=== PATIENT | male | born 1950 | race Caucasian/White ===

== ENCOUNTER 2019-05-09 10:50 | Outpatient (CLI) | payer MEDICARE, OTHER, SELFPAY ==
--- NOTE | ~2019-05-09 | XR_ITS ---
EXAMINATION: XR wrist LT w scaphoid DATE: 05/09/2019 11:17 INDICATION: Radial sided left wrist pain post fall several months prior TECHNIQUE: Posteroanterior, ulnar deviation, oblique, and lateral views of the left wrist were obtain ed. COMPARISON: none FINDINGS: Alignment is normal. No fracture. Mild osteoarthritis at the triscaphe, first carpometacarpal and fir st interphalangeal joints. Osteopenia. Soft tissues are unremarkable. IMPRESSION: 1. 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 2. Osteopenia. Reviewed, dictated and finalized at location A. 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 2. Osteopenia.
== END 2019-05-09 10:51 | disposition home or self-care (01) ==
LOC: ANHIMG 10:57
PROVIDERS: PCP Family Medicine; Visit Provider Family Medicine
DX: M25.532 Pain in left wrist (principal); M19.032 Primary osteoarthritis, left wrist; M85.88 Other specified disorders of bone density and structure, other site
CPT/HCPCS: 73110

== ENCOUNTER 2020-01-03 09:35 | Outpatient (CLI) | payer MEDICARE, SELFPAY ==
--- NOTE | ~2020-01-03 | US_ITS ---
EXAMINATION: US carotid duplex BI DATE: 01/03/2020 10:49 INDICATION: Right carotid bruit. TECHNIQUE: Grayscale, color Doppler, and pulsed Doppler images of the cervical carotid arteries were obtained. The degree of vessel stenosis is placed in one of the following categories: normal, <50%, 5 0-69%, >=70% but less than near-occlusion, near-occlusion, or total occlusion. Note that percent sten osis relative to normal distal artery lumen diameter is indirectly measured from velocity measurement s as described by Bjorn, et al. Radiology 2003; [id number]. COMPARISON: None. FINDINGS: RIGHT: The right common carotid artery (CCA) peak systolic velocity (PSV) is 116 cm/s. The right internal ca rotid artery (ICA) PSV is 96 cm/s. The right ICA end-diastolic velocity (EDV) is 9 cm/s. The right IC A/CCA PSV ratio is 0.8. Grayscale and color Doppler images yield an estimate of <50% diameter reducti on from plaque in the ICA. There is antegrade flow in the right vertebral artery. LEFT: The left CCA PSV is 124 cm/s. The left ICA PSV is 108 cm/s. The left ICA EDV is 26 cm/s. The left ICA /CCA PSV ratio is 0.9. Grayscale and color Doppler images yield an estimate of <50% diameter reductio n from plaque in the ICA. There is antegrade flow in the left vertebral artery. IMPRESSION: 1. <50% stenosis in the right internal carotid artery. 2. <50% stenosis in the left internal carotid artery. Reviewed, dictated and finalized at location A.
== END 2020-01-03 09:36 | disposition home or self-care (01) ==
LOC: ANHIMG 09:41
PROVIDERS: PCP Family Medicine; Visit Provider Physician Assistant
DX: R09.89 Other specified symptoms and signs involving the circulatory and respiratory systems (principal); I65.23 Occlusion and stenosis of bilateral carotid arteries
CPT/HCPCS: 93880

== ENCOUNTER 2020-02-15 07:05 | Outpatient (NON) | payer MEDICARE, SELFPAY ==
[2020-02-15 18:30] LABS: SARS-CoV-2 RNA PCR Negative
== END 2020-02-15 07:06 ==
LOC: ANHCOVIDDT 07:17
PROVIDERS: PCP Family Medicine; Visit Provider Physician Assistant
DX: R09.89 Other specified symptoms and signs involving the circulatory and respiratory systems (principal); Z20.828 Contact with and (suspected) exposure to other viral communicable diseases
CPT/HCPCS: 87635; C9803; U0003

== ENCOUNTER 2020-03-07 10:27 | Emergency (ER) | payer MEDICARE, SELFPAY ==
--- NOTE | ~2020-03-07 | XR_ITS ---
EXAMINATION: XR chest 2V EXAM DATE: 03/07/2020 11:15 INDICATION: non prod cough x 10 days. TECHNIQUE: Portable AP frontal chest x-ray was obtained. Comparison is made to prior examination from 10/21/2018. FINDINGS: Suspect scattered ill-defined mid and lower lung zone acute airspace disease. Could be COVI D pneumonia given community prevalence. Recommend testing. No confluent consolidation or pneumothorax . No pleural effusion. Cardiomediastinal silhouette is normal. There are no osseous abnormalities coy ntified. IMPRESSION: Suspect developing bilateral ill-defined acute airspace disease. Recommend testing for CO VID 19. Reviewed, dictated and finalized at location A. OR NATUROPATHIC IMPRESSION: Suspect developing bilateral ill-defined acute airspace disease. Re commend testing for COVID 19.
--- NOTE | 2020-03-07 10:31 | ED.URI ---
HPI - URI/Sore Throat General Chief Complaint: Upper Respiratory Infection Stated Complaint: cough/fever Time Seen by Provider: 03/07/20 10:40 Source: patient and RN notes reviewed Mode of arrival: ambulatory Limitations: no limitations History of Present Illness HPI Narrative: 69-year-old male presents with concern for cough, low-grade fever. Reports 3 members of his household tested positive for coronavirus on February 12, he tested negative. Reports the family members have been lax in their quarantining. Reports on February 25 he began having a cough, intermittent low-grade fever. Reports the cough has been worsening. Reports he takes [id number] cough and cold medicine with little relief. He reports nasal congestion, sinus pressure, poor appetite. He denies loss of sense of taste or smell, body aches, chills, sweats. MD elicited complaint: cough Related Data Home Medications Medication Instructions Recorded Confirmed gemfibrozil 600 mg PO BID 03/07/20 03/07/20 Allergies Allergy/AdvReac Type Severity Reaction Status Date / Time No Known Allergies Allergy Verified 12/21/19 09:35 Review of Systems Review of Systems: Narrative: CONSTITUTIONAL: Denies malaise, chills, sweats, or fever. EYES: Denies visual changes, redness, or discharge. ENT: Reports rhinorrhea, congestion. Denies sinus pain, otalgia and sore throat. CARDIOVASCULAR: Denies chest pain, palpitations, or edema. RESPIRATORY: Reports cough. Denies dyspnea. GASTROINTESTINAL: Denies abdominal pain, nausea, vomiting, diarrhea. Reports poor appetite SKIN: Denies rash or itching. MUSCULOSKELETAL: Denies myalgia. NEUROLOGIC: Denies headache. All systems reviewed & are unremarkable except as noted in HPI and below PMFSH Past Medical History Medical History CKD (chronic kidney disease) stage 3, GFR 30-59 ml/min Diabetes Diabetic peripheral neuropathy Hyperlipidemia Morbid obesity Streptococcal pneumonia w/ respiratory failure 10/2004 Surgical History Surgical History History of knee replacement 05/2014 History of tonsillectomy and adenoidectomy age 9 Family History Family History Father Acute myocardial infarction Mother Hypertension Family history of rheumatoid arthritis Sibling Hypertension Family history of rheumatoid arthritis Family history of malignant neoplasm Family history of kidney disease Other Family history of cardiovascular disease Social History Social History Smoking status: Never smoker Second hand tobacco smoke exposure: No Alcohol intake: never Substance use: never Substance use type: does not use Gender identity (if verbalized by the patient): Male Spiritual care concerns: Yes Agree to blood products: Yes Comments At time of signature, agree with nursing past medical, surgical, social and family history. There is no relevant family history pertinent to the presenting complaint Exam Narrative: Exam Narrative: GENERAL: Well-appearing, well-nourished, and in no acute distress. HEAD: Normocephalic EYES: PERRLA, conjunctivae clear ENT: Nares clear, turbinates erythematous, clear discharge. Mucous membranes moist. TM pearly diehl with dull light reflex bilaterally; no tragal tenderness. Oropharynx not erythematous without lesions. Tonsils not enlarged and without exudate, no drooling, no hoarseness, no trismus, uvula midline. NECK: Supple. No lymphadenopathy CHEST: Scattered rhonchi, decreased lower lobe breath sounds. No wheezing, rales, or stridor. No respiratory distress, speaks in full sentences. HEART: Regular rate and rhythm. No murmur heard. SKIN: Warm, dry, no rash. NEURO: Alert and oriented x3. PSYCH: Normal mood and affect Course Course Linda
[2020-03-07 10:37] VITALS: BP 146/73; PULSE 93; RESP 16; TEMP 36.3; O2SAT 97
== END 2020-03-07 11:44 | disposition home or self-care (01) ==
PROVIDERS: Emergency Provider Nurse Practitioner
DX: Z20.828 Contact with and (suspected) exposure to other viral communicable diseases (principal); J18.9 Pneumonia, unspecified organism; E78.5 Hyperlipidemia, unspecified; E66.01 Morbid (severe) obesity due to excess calories; Z68.42 Body mass index [BMI] 45.0-49.9, adult; E11.22 Type 2 diabetes mellitus with diabetic chronic kidney disease; E11.42 Type 2 diabetes mellitus with diabetic polyneuropathy; N18.30 Chronic kidney disease, stage 3 unspecified; Z96.659 Presence of unspecified artificial knee joint
CPT/HCPCS: 71046; 99213; G0463

== ENCOUNTER 2020-05-23 14:43 | Outpatient (CLI) | payer MEDICARE, SELFPAY | END 2020-05-23 14:44 | disposition home or self-care (01) | LOC: ANHCOVIDVC 14:43 | PROVIDERS: PCP Physician Assistant | DX: Z23 Encounter for immunization (principal) | CPT/HCPCS: 0001A; 91300 ==

== ENCOUNTER 2020-06-13 14:48 | Outpatient (CLI) | payer MEDICARE, SELFPAY | END 2020-06-13 14:49 | disposition home or self-care (01) | LOC: ANHCOVIDVC 14:48 | PROVIDERS: PCP Physician Assistant | DX: Z23 Encounter for immunization (principal) | CPT/HCPCS: 0002A; 91300 ==

== ENCOUNTER 2020-09-08 21:37 | Emergency (ER) | payer MEDICARE, SELFPAY ==
[2020-09-08 21:44] VITALS: BP 151/76; PULSE 82; RESP 20; O2SAT 99
--- NOTE | 2020-09-08 22:09 | ED.MALEGU ---
HPI - Male Genitourinary General Chief complaint: Urogenital-Male Stated complaint: hematuria Time Seen by Provider: 09/08/20 21:42 Source: patient Mode of arrival: ambulatory Limitations: no limitations History of Present Illness HPI Narrative: Patient 70 years old white male presents with hematuria, burning urination started 2 hours prior to arrival to the emergency room. Patient denies having similar symptoms, also denies taking any anticoagulant medications or antiplatelet medication. Patient denies any fever, chills, nausea, vomiting, abdominal pain. Related Data Home Medications Medication Instructions Recorded Confirmed gemfibrozil 600 mg PO BID 03/07/20 06/04/20 finasteride 5 mg PO DAILY 09/08/20 Allergies Allergy/AdvReac Type Severity Reaction Status Date / Time No Known Allergies Allergy Verified 09/08/20 21:51 Review of Systems Review of Systems: Narrative: CONSTITUTIONAL: Denies fever, chills, or sweats. EYES: Denies visual changes, redness, or discharge. ENT: Denies rhinorrhea, congestion, sore throat, or otalgia. CARDIOVASCULAR: Denies chest pain, palpitations, or edema. RESPIRATORY: Denies cough or dyspnea. GASTROINTESTINAL: Denies abdominal pain, nausea, vomiting, or diarrhea. GENITOURINARY: Denies dysuria or hematuria. SKIN: Denies rash or itching. MUSCULOSKELETAL: Denies back pain, joint pain, or myalgia. NEUROLOGIC: Denies headache, numbness, or weakness. PSYCHIATRIC: Denies anxiety or depression. [facility] Past Medical History Medical History CKD (chronic kidney disease) stage 3, GFR 30-59 ml/min Diabetes Diabetic peripheral neuropathy Hyperlipidemia Morbid obesity Streptococcal pneumonia w/ respiratory failure 10/2004 Surgical History Surgical History History of knee replacement 05/2014 History of tonsillectomy and adenoidectomy age 9 Family History Family History Father Acute myocardial infarction Mother Hypertension Family history of rheumatoid arthritis Sibling Hypertension Family history of rheumatoid arthritis Family history of malignant neoplasm Family history of kidney disease Other Family history of cardiovascular disease Social History Social History Smoking status: Never smoker Second hand tobacco smoke exposure: No Alcohol intake: never Substance use: never Substance use type: does not use Gender identity (if verbalized by the patient): Male Spiritual care concerns: Yes Agree to blood products: Yes Exam Narrative: Exam Narrative: General appearance: Well-developed, well-nourished Skin: Normal color Head: Normocephalic, nontraumatic Eyes: Clear conjunctiva Chest and respiratory: Airway patent, no respiratory distress, no accessory muscle use Heart: Regular rate/rhythm Abdomen: Soft, nontender, no organomegaly, quiet bowel sounds Vascular: Normal peripheral pulses, normal capillary refill. Musculoskeletal: Normal range of motion, nontender back Neurologic: Alert and oriented ?3, Course Course Emergency Course: Stable Vital Signs Vital signs: Vital Signs Pulse Rate 82 09/08/20 21:44 Respiratory Rate 09/08/20 21:44 Blood Pressure 151/76 H 09/08/20 21:44 Pulse Oximetry 99 09/08/20 21:44 Pulse Rate 82 09/08/20 21:44 Respiratory Rate 20 09/08/20 21:44 Blood Pressure 151/76 H 09/08/20 21:44 Pulse Oximetry 99 09/08/20 21:44 MDM - Male Genitourinary MDM Narrative Medical decision making narrative:
[2020-09-08 22:36] LABS: Basophils Percent Auto 0.6 % (0.2-1.2); Eosinophils Absolute Auto 0.1 K/mm3 (0-0.3); Eosinophils Percent Auto 1.4 % (0-4.4); Hematocrit 37.8 % (42.0-52.0); Hemoglobin 11.9 g/dL (14.0-18.0); Immature Granulocyte Absolute 0.05 K/mm3 (0.00-0.031); Immature Granulocyte Percent A 0.8 % (0-0.5); Lymphocytes Percent Auto 16.9 % (18.3-44.2); Mean Corpuscular HGB Conc 31.5 g/dl (32-36); Mean Corpuscular Hemoglobin 29.5 pg (26-34); Mean Corpuscular Volume 93.8 fl (80-100); Mean Platelet Volume 9.6 fl (7.4-10.4); Monocytes Absolute Auto 0.7 K/mm3 (0.1-0.6); Monocytes Percent Auto 10.9 % (2.6-8.5); Neutrophils Absolute Auto 4.5 K/mm3 (1.3-6.7); Neutrophils Percent Auto 69.4 % (45.5-73.1); Platelet Count Result 247 k/mm3 (150-375); Red Blood Count 4.03 M/mm3 (4.6-6.20); Red Cell Distribution Width 13.5 % (11.5-14.5); White Blood Count 6.5 K/mm3 (4.5-10.0)
[2020-09-08 22:50] LABS: Alanine Aminotransferase 19 U/L (4-50); Albumin Level 4.5 g/dL (3.5-5.1); Alkaline Phosphatase 67 U/L (38-126); Anion Gap 11 mmol/L (8-16); Aspartate Amino Transferase 26 U/L (17-59); Bilirubin,Total 0.4 mg/dL (0.2-1.3); Blood Urea Nitrogen 27 mg/dL (9-20); Carbon Dioxide 22 mmol/L (22-30); Chloride 108 mmol/L (98-107); Estimated CRCL calculation 80 ml/min; Estimated Glomerular Filt Rate > 60; Glucose 133 mg/dL (75-110); Potassium 4.4 mmol/L (3.4-5.0); Sodium 141 mmol/L (137-145)
[2020-09-08 22:57] LABS: Add Urine Microscopic? YES; Appearance Urine Cloudy (Clear); Bacteria Urine Trace /hpf; Bilirubin Urine Negative (Negative); Blood Urine 3+ (Negative); Color Urine Red (Yellow); Glucose Urine UA Negative (Negative); Ketones Urine Negative (Negative); Leukocyte Esterase Ur Negative LEU/UL (Negative); Mucus Urine Rare /lpf; Nitrate Urine Negative (Negative); Protein Urine 2+ mg/dL (Negative); RBC Urine >75 /hpf (0-2); Specific Grav Ur 1.008 (1.001-1.035); Urobilinogen Urine Negative mg/dL (<2.0); WBC Urine 21-30 /hpf
--- NOTE | 2020-09-08 23:23 | PC.NURSE ---
Pt presents to ED with complaints of hematuria that onset today at approx 1930. Pt denies all pain and discomfort and states he feels like he is expelling all urine from bladder and denies bloating, pressure and dysuria. Pt alert and oriented x4 and in no obvious distress with stable vitals. Pt in its lowest position with call button and personal items within reach. Pt advised to press call button for assistance. is present at bedside. All questions and concerns addressed.
[2020-09-08 23:26] VITALS: BP 146/64; PULSE 81; RESP 18; TEMP 36.6; O2SAT 99
--- NOTE | 2020-09-08 23:27 | PC.NURSE ---
EDMD present at bedside to update pt and on poc. All questions and concerns addressed.
[2020-09-08 23:42] VITALS: BP 146/64; PULSE 81; RESP 18; TEMP 36.6; O2SAT 99
[2020-09-08 23:44] VITALS: BP 146/64; PULSE 81; RESP 18; TEMP 36.6; O2SAT 99
== END 2020-09-08 23:45 | disposition home or self-care (01) ==
PROVIDERS: Emergency Provider Emergency Medicine; PCP Physician Assistant
DX: N39.0 Urinary tract infection, site not specified (principal); R31.9 Hematuria, unspecified; E11.22 Type 2 diabetes mellitus with diabetic chronic kidney disease; N18.30 Chronic kidney disease, stage 3 unspecified; Z79.84 Long term (current) use of oral hypoglycemic drugs; E11.42 Type 2 diabetes mellitus with diabetic polyneuropathy; E78.5 Hyperlipidemia, unspecified; E66.01 Morbid (severe) obesity due to excess calories; Z68.41 Body mass index [BMI] 40.0-44.9, adult; Z87.01 Personal history of pneumonia (recurrent); Z96.659 Presence of unspecified artificial knee joint
CPT/HCPCS: 36415; 80053; 81001; 85025; 87086; 87088; 99283

== ENCOUNTER 2020-09-10 12:30 | Outpatient (CLI) | payer MEDICARE, SELFPAY ==
--- NOTE | ~2020-09-10 | XR_ITS ---
EXAMINATION: XR abdomen/kub 1V EXAM DATE: 09/10/2020 12:53 INDICATION: Hematuria. TECHNIQUE: Frontal projection of the upper abdomen, frontal projection lower abdomen/pelvis for inter pretation. Comparison is made to prior examination from 2004. FINDINGS: There is expected amount of colonic stool and gas. No small bowel dilation, nonobstructiv e bowel gas pattern. There are no suspicious calcifications identified. Calcifications in the pelvi s are believed to be phleboliths. There is no organomegaly suspected. There are mild bony degenera tive changes. IMPRESSION: Unremarkable abdomen x-ray exam. Reviewed, dictated and finalized at location A.
== END 2020-09-10 12:31 | disposition home or self-care (01) ==
LOC: ANHIMG 12:36
PROVIDERS: PCP Physician Assistant; Visit Provider Nurse Practitioner Adult Health
DX: R31.0 Gross hematuria (principal)
CPT/HCPCS: 74018

== ENCOUNTER 2020-12-27 13:36 | Outpatient (CLI) | payer MEDICARE, SELFPAY ==
--- NOTE | ~2020-12-27 | XR_ITS ---
EXAMINATION: HAND-CHAYO ARTHRITIS 3+VIEWS DATE: 12/27/2020 13:56 INDICATION: Bilateral hand pain TECHNIQUE: Posteroanterior, lateral, and oblique views of the left and of the right hands as well as a ballcatchers view of both hands were obtained. COMPARISON: 05/09/2019 and 04/02/2018 FINDINGS: Alignment is normal at the bilateral hands. No fracture. Polyarticular osteoarthritis at the bilatera l hands and wrists characterized by nonuniform joint space narrowing and small marginal osteophytes. This is moderate to severe at the right third metacarpophalangeal joint, moderate severity at the lef t third metacarpophalangeal joint and multiple bilateral interphalangeal joints and mild at the bilat eral distal radioulnar, triscaphe, first carpometacarpal and remaining metacarpophalangeal and interp halangeal joints. No erosions to suggest inflammatory arthritis. Diffuse osteopenia. Soft tissues are unremarkable. IMPRESSION: 1. Generally moderate polyarticular osteoarthritis at the bilateral hands. Reviewed, dictated and finalized at location A.
== END 2020-12-27 13:37 | disposition home or self-care (01) ==
LOC: ANHIMG 13:38
PROVIDERS: PCP Family Medicine; Visit Provider Physician Assistant
DX: M79.643 Pain in unspecified hand (principal); M19.042 Primary osteoarthritis, left hand; M19.041 Primary osteoarthritis, right hand
CPT/HCPCS: 73130

== ENCOUNTER 2022-04-02 16:06 | Outpatient (CLI) | payer MEDICARE, SELFPAY ==
[2022-04-02 16:24] LABS: Basophils Percent Auto 0.6 % (0.2-1.2); Eosinophils Absolute Auto 0.1 K/mm3 (0-0.3); Eosinophils Percent Auto 2.3 % (0-4.4); Hematocrit 37.7 % (42.0-52.0); Hemoglobin 11.7 g/dL (14.0-18.0); Immature Granulocyte Absolute 0.02 K/mm3 (0.00-0.031); Immature Granulocyte Percent A 0.4 % (0-0.5); Lymphocytes Absolute Auto 1.09 K/mm3 (0.9-3.2); Lymphocytes Percent Auto 22.5 % (18.3-44.2); Mean Corpuscular Hemoglobin 30.9 pg (26-34); Mean Corpuscular Volume 99.5 fl (80-100); Mean Platelet Volume 9.9 fl (7.4-10.4); Monocytes Absolute Auto 0.6 K/mm3 (0.1-0.6); Monocytes Percent Auto 12.8 % (2.6-8.5); Neutrophils Percent Auto 61.4 % (45.5-73.1); Platelet Count Result 210 k/mm3 (150-375); Red Blood Count 3.79 M/mm3 (4.6-6.20); Red Cell Distribution Width 14.6 % (11.5-14.5); White Blood Count 4.9 K/mm3 (4.5-10.0)
[2022-04-02 16:38] LABS: D Dimer 0.41 ug/mL (<0.48)
[2022-04-02 16:40] LABS: Alanine Aminotransferase 20 U/L (6-50); Albumin Level 4.4 g/dL (3.5-5.1); Alkaline Phosphatase 75 U/L (38-126); Anion Gap 7 mmol/L (8-16); Aspartate Amino Transferase 25 U/L (17-59); Bilirubin,Total 0.5 mg/dL (0.2-1.3); Blood Urea Nitrogen 19 mg/dL (9-20); Calcium 9.2 mg/dL (8.4-10.2); Carbon Dioxide 25 mmol/L (22-30); Chloride 108 mmol/L (98-107); Estimated Glomerular Filt Rate > 60; Glucose 137 mg/dL (65-110); Potassium 4.1 mmol/L (3.4-5.0); Sodium 140 mmol/L (137-145)
[2022-04-02 16:52] LABS: NT Pro B Type Natriuretic Pept 162 pg/mL (19.9-100)
== END 2022-04-02 16:07 | disposition home or self-care (01) ==
LOC: ANHLAB 16:07
PROVIDERS: PCP Family Medicine; Visit Provider Physician Assistant
DX: R60.9 Edema, unspecified (principal); R06.02 Shortness of breath
CPT/HCPCS: 36415; 80053; 83880; 85025; 85380

== ENCOUNTER 2022-05-12 08:09 | Outpatient (CLI) | payer MEDICARE, SELFPAY ==
--- NOTE | ~2022-05-12 | XR_ITS ---
XR chest 2V 05/12/2022 08:35 Indication: Edema. Procedure: PA and lateral views of the chest Comparison: Comparison to multiple prior studies sequentially, with oldest reviewed study dated 04/28. Findings: Borderline heart size. Mild interstitial edema. No pleural effusion or pneumothorax. Pulmon denae arteries are enlarged centrally consistent with pulmonary arterial hypertension. Impression: 1: Mild interstitial edema. Reviewed, dictated and finalized at location D. PRINTER Impression: 1: Mild interstitial edema.
== END 2022-05-12 08:10 | disposition home or self-care (01) ==
PROVIDERS: PCP Family Medicine; Visit Provider Physician Assistant
DX: J81.1 Chronic pulmonary edema (principal)
CPT/HCPCS: 71046

== ENCOUNTER 2022-05-15 15:30 | Outpatient (CLI) | payer MEDICARE, SELFPAY ==
--- NOTE | 2022-05-15 15:48 | ECG_ITS ---
Measurements Intervals [place]ine Rate: 73 P: 60 ID: 164 QRS: -19 QRSD: 105 T: 72 QT: 389 QTc: 431 Interpretive Statements SINUS RHYTHM WITH SINUS ARRHYTHMIA DELAYED PRECORDIAL R/S TRANSITION BORDERLINE ST-T WAVE ABNORMALITY- HIGH LATERAL LEADS BORDERLINE ECG COMPARED TO ECG 10/21/2018 11:44:06 SINUS RHYTHM NOW PRESENT SINUS ARRHYTHMIA NOW PRESENT Electronically Signed On 05-15-2022 17:01:02 ANESTHESIA DIRECTOR by Zacarias Harvey D.O.
[2022-05-15 16:46] LABS: Anion Gap 5 mmol/L (8-16); Blood Urea Nitrogen 17 mg/dL (9-20); Calcium 9.4 mg/dL (8.4-10.2); Carbon Dioxide 31 mmol/L (22-30); Chloride 103 mmol/L (98-107); Estimated Glomerular Filt Rate > 60; Glucose 160 mg/dL (65-110); Sodium 139 mmol/L (137-145)
== END 2022-05-15 15:31 | disposition home or self-care (01) ==
PROVIDERS: PCP Family Medicine; Visit Provider Family Medicine
DX: Z51.81 Encounter for therapeutic drug level monitoring (principal); Z79.899 Other long term (current) drug therapy; R60.9 Edema, unspecified; R94.31 Abnormal electrocardiogram [ECG] [EKG]
CPT/HCPCS: 36415; 80048; 93005

== ENCOUNTER 2022-05-18 10:18 | Emergency (ER) | payer MEDICARE, SELFPAY ==
--- NOTE | ~2022-05-18 | US_ITS ---
EXAMINATION: US venous doppler [facility] DATE: 05/18/2022 12:45 INDICATION: Lower limb edema. TECHNIQUE: Grayscale ultrasound images without and with compression and Doppler ultrasound images of the bilateral lower extremity veins were obtained. COMPARISON: Ultrasound 06/18/2015 FINDINGS: The visualized portions of right common femoral vein, profunda (deep) femoral vein, femoral vein, pop liteal vein, peroneal veins, posterior tibial veins, and greater saphenous vein outflow are patent. The visualized portions of left common femoral vein, profunda femoral vein, femoral vein, popliteal v ein, peroneal veins, posterior tibial veins, and greater saphenous vein outflow are patent. IMPRESSION: 1. No deep venous thrombosis. Reviewed, dictated and finalized at location A. T RELATION OFFICER
[2022-05-18 11:09] VITALS: BP 152/67; PULSE 88; RESP 22; TEMP 36.6; O2SAT 99
[2022-05-18] MEDS: HYDROcodone/acetaminophen (*CRX) 5-325 MG TABLET 1 TAB PO (12:10)
--- NOTE | 2022-05-18 12:29 | ED.LOWEXIN ---
HPI - Extremity Injury (Lower) General Chief Complaint: Extremity Problem,Nontraumatic Stated Complaint: bilateral leg swelling Time Seen by Provider: 05/18/22 11:44 History of Present Illness HPI Narrative: Patient is a 72-year-old male who presents ER with bilateral lower extremity edema. Worsening over the last couple weeks. Was seen by PCP and started on antibiotics because he had redness to his shins. That improved. He is also started on Lasix 20 mg daily. That has not decreased his edema. No chest pain or chest pressure. Out patient D-dimer negative. He was scheduled for an ultrasound of his legs to rule out DVT however cannot be performed for another week so he came in for further evaluation. He has no exertional dyspnea or shortness of breath. Pain not controlled with [id number] Tylenol. Related Data Home Medications Medication Instructions Recorded Confirmed finasteride 5 mg tablet 5 mg PO DAILY 05/11/22 05/11/22 Allergies Allergy/AdvReac Type Severity Reaction Status Date / Time No Known Allergies Allergy Verified 05/11/22 15:49 Review of Systems Review of Systems: All systems reviewed & are unremarkable except as noted in HPI and below Constitutional: Constitutional: Denies chills, Denies fatigue and Denies fever(s) Cardiovascular: Cardiovascular: Denies chest pain, Denies rapid heart rate and Denies radiating jaw, neck or arm pain Respiratory: Respiratory: Denies cough, Denies dyspnea and Denies wheezing Gastrointestinal: Gastrointestinal: Denies abdominal pain, Denies nausea and Denies vomiting Musculoskeletal: Musculoskeletal: Denies arthralgias and Denies joint swelling Comments: Lower extremity edema bilaterally Integumentary/Breasts: Skin/Breast: Denies rash and Denies skin ulcer PMF Past Medical History Medical History CKD (chronic kidney disease) stage 3, GFR 30-59 ml/min Diabetes Diabetic peripheral neuropathy Encounter for immunization Hyperlipidemia Morbid obesity Streptococcal pneumonia w/ respiratory failure 10/2004 Surgical History Surgical History History of knee replacement 05/2014 History of tonsillectomy and adenoidectomy age 9 Family History Family History Father Acute myocardial infarction Mother Hypertension Family history of rheumatoid arthritis Sibling Hypertension Family history of rheumatoid arthritis Family history of malignant neoplasm Family history of kidney disease Other Family history of cardiovascular disease Social History Social History Social History: Retired, lives with . Smoking status: Never smoker Second hand tobacco smoke exposure: No Alcohol intake: never Substance use: never Substance use type: does not use Living arrangements: with family Occupation/Education: retired Gender identity (if verbalized by the patient): Male Spiritual care concerns: Yes Agree to blood products: Yes Exam Narrative: GENERAL: Well-appearing, well-nourished, and in no acute distress. HEAD: Normocephalic, atraumatic. ENT: Mucous membranes moist. CHEST: Clear to auscultation. No respiratory distress. HEART: Regular rate and rhythm. Normal peripheral pulses. ABDOMEN: Soft, nontender, nondistended. EXTREMITIES: Normal range of motion. 2+ edema. SKIN: Warm, dry, no rash. NEURO: Alert and oriented x3. PSYCH: Normal mood and affect. Course Course Emergency Course: Patient resting comfortably. Informed of results. No evidence of DVT. Recommend low-salt diet, compression stockings, leg elevation, and recommend increasing Lasix to twice a day. Recommend follow-up with PCP. Patient verbalized understanding treatment plan. Vital Signs Vital signs: Vital Signs
[2022-05-18 13:08] VITALS: BP 128/50; PULSE 70; RESP 12; O2SAT 98
== END 2022-05-18 13:45 | disposition home or self-care (01) ==
PROVIDERS: Emergency Provider Emergency Medicine; PCP Family Medicine
DX: R60.0 Localized edema (principal); E11.22 Type 2 diabetes mellitus with diabetic chronic kidney disease; E11.42 Type 2 diabetes mellitus with diabetic polyneuropathy; N18.30 Chronic kidney disease, stage 3 unspecified; E78.5 Hyperlipidemia, unspecified; E66.01 Morbid (severe) obesity due to excess calories; Z68.43 Body mass index [BMI] 50.0-59.9, adult; Z79.84 Long term (current) use of oral hypoglycemic drugs
CPT/HCPCS: 93970; 99284; A9270

== ENCOUNTER 2022-05-21 12:27 | Outpatient (CLI) | payer MEDICARE, SELFPAY ==
[2022-05-21 14:15] LABS: NT Pro B Type Natriuretic Pept 222 pg/mL (19.9-100)
== END 2022-05-21 12:28 | disposition home or self-care (01) ==
PROVIDERS: PCP Family Medicine; Visit Provider Physician Assistant Medical
DX: R60.9 Edema, unspecified (principal); E78.2 Mixed hyperlipidemia; R06.02 Shortness of breath
CPT/HCPCS: 36415; 83880

== ENCOUNTER 2022-05-28 09:33 | Outpatient (CLI) | payer MEDICARE, SELFPAY ==
--- NOTE | 2022-05-28 09:51 | ECHO_ITS ---
Patient Info Name: Sebastian Mendiola Age: 72 years : 1950 Gender: Male Ht: 70 in Wt: 340 lbs BSA: 2.84 m2 HR: 74 bpm BP: 137 / 70 mmHg Technical Quality: Fair Exam Date: 05/28/2022 9:57 AM Exam Location: [facility] Pulmonary Patient Status: Outpatient Admit Date: 05/28/2022 Staff Ordering Physician: Felicitas Young MD Government Services Professional: Prashant Gonzalez RDCS, RT Attending Provider: Felicitas Young MD Referring Physician: Hector SON; Exam Type: CA echo doppler color flow Study Info Indications R60.0 - Localized edema Complete two-dimensional, color flow and Doppler transthoracic echocardiogram is performed. Strain analysis performed. Summary 1. Complete two-dimensional, color flow and Doppler transthoracic echocardiogram is performed. 2. Left ventricular chamber dimension is normal. 3. Left ventricular systolic function is normal, estimated at 60-65%. 4. There is mild concentric increased left ventricular wall thickness. 5. The left ventricular diastolic function is abnormal. 6. E/e' 10 is mildly elevated. 7. Global longitudinal strain is abnormal at -14.4%. 8. Left atrial chamber dimension is mildly enlarged. 9. There is mild mitral valve regurgitation. 10. Dilated inferior vena cava with >50% collapse upon inspiration consistent with elevated right atrial pressure, 10 mmHg. Left Ventricle E/e' 10 is mildly elevated. Global longitudinal strain is abnormal at -14.4%. Left ventricular chamber dimension is normal. Left ventricular systolic function is normal, estimated at 60-65%. There is mild concentric increased left ventricular wall thickness. The left ventricular diastolic function is abnormal. Right Ventricle Right ventricular chamber dimension is normal. Right ventricular systolic function is normal. Left Atria Left atrial chamber dimension is mildly enlarged. Right Atria Right atrial chamber dimension is normal. Aortic Valve The aortic valve is trileaflet. There is no aortic valve stenosis. There is no aortic valve regurgitation. Pulmonic Valve There is no pulmonic regurgitation. Mitral Valve There is no mitral valve stenosis. There is mild mitral valve regurgitation. Tricuspid Valve There is no tricuspid valve regurgitation. Pericardium/Pleural There is no pericardial effusion. Inferior Vena Cava Dilated inferior vena cava with >50% collapse upon inspiration consistent with elevated right atrial pressure, 10 mmHg. Aorta The aortic root size at the sinus of Valsalva is normal. Left Ventricular Outflow Tract Name Value Normal LVOT 2D LVOT Diameter 2.1 cm LVOT Doppler LVOT Peak Gradient 8 mmHg LVOT Mean Gradient 4 mmHg LVOT VTI 31 cm LVOT VTI/AV VTI Ratio 0.9 LVOT Stroke Volume 106 ml LVOT CO 9.4 l/min LVOT CI 3.3 l/min/m2 Mitral Valve Name Va
== END 2022-05-28 09:34 | disposition home or self-care (01) ==
LOC: ANHCARD 09:33
PROVIDERS: PCP Family Medicine; Visit Provider Family Medicine
DX: R60.9 Edema, unspecified (principal)
CPT/HCPCS: 93306

== ENCOUNTER 2022-06-19 12:37 | Outpatient (CLI) | payer MEDICARE, SELFPAY ==
[2022-06-19 13:13] LABS: Hemoglobin 12.2 g/dL (14.0-18.0); Mean Corpuscular HGB Conc 31.3 g/dl (32-36); Mean Corpuscular Hemoglobin 31.1 pg (26-34); Mean Corpuscular Volume 99.5 fl (80-100); Mean Platelet Volume 9.7 fl (7.4-10.4); Platelet Count Result 220 k/mm3 (150-375); Red Blood Count 3.92 M/mm3 (4.6-6.20); Red Cell Distribution Width 14.2 % (11.5-14.5); White Blood Count 5.6 K/mm3 (4.5-10.0)
[2022-06-19 13:22] LABS: Hemoglobin A1C 7.1 % (<5.7)
[2022-06-19 13:26] LABS: Cholesterol 147 mg/dL (0-200); HDL Direct 48 mg/dL; Triglycerides 112 mg/dL (<150)
[2022-06-19 13:37] LABS: LDL Cholesterol Direct 59 mg/dL
[2022-06-19 13:41] LABS: Creatinine Urine 75.6 mg/dL
[2022-06-19 13:46] LABS: Microalbumin Urine Random 15.9 mg/L (0-16.7)
== END 2022-06-19 12:38 | disposition home or self-care (01) ==
PROVIDERS: PCP Family Medicine; Visit Provider Physician Assistant Medical
DX: R53.83 Other fatigue (principal); Z12.5 Encounter for screening for malignant neoplasm of prostate; E11.65 Type 2 diabetes mellitus with hyperglycemia; E78.2 Mixed hyperlipidemia
CPT/HCPCS: 36415; 80061; 82043; 83036; 84153; 85027; G0103

== ENCOUNTER 2022-08-28 09:23 | Outpatient (CLI) | payer MEDICARE, SELFPAY ==
--- NOTE | ~2022-08-28 | XR_ITS ---
EXAMINATION: XR ribs LT 2V w CXR 2V INDICATION: Left chest pain TECHNIQUE: PA and lateral views of the chest and 3 views of the left ribs were obtained. COMPARISON: 05/12/2022 FINDINGS: A mild diffuse interstitial pattern persists but has improved. The heart size is normal. No pleural effusion or pneumothorax. There is moderate thoracic spondylosis. No displaced rib fracture is identified. IMPRESSION: 1. Mild pulmonary edema. 2. No displaced rib fracture identified. Reviewed, dictated and finalized at location A.
== END 2022-08-28 09:24 | disposition home or self-care (01) ==
PROVIDERS: PCP Family Medicine; Visit Provider Physician Assistant
DX: S29.9XXA Unspecified injury of thorax, initial encounter (principal); X58.XXXA Exposure to other specified factors, initial encounter; J81.1 Chronic pulmonary edema
CPT/HCPCS: 71046; 71100

== ENCOUNTER 2022-10-29 00:54 | Day surgery (SDC) | payer MEDICARE, SELFPAY ==
[2022-10-14 15:02] VITALS: BMI 47.0
[2022-10-29 06:50] VITALS: BP 140/62; PULSE 64; RESP 18; TEMP 36.6; O2SAT 98; BMI 47.0
[2022-10-29] MEDS: LACTATED RINGERS 1,000 ML 150 ML IV CONT (07:19)
[2022-10-29 07:20] LABS: Glucose Point of Care 153 mg/dl (65-105)
--- NOTE | 2022-10-29 07:25 | PM.HPGS ---
History of Present Illness History of Present Illness Consent: Risks, benefits, and alternatives have been discussed and questions answered. Patient agrees to proceed with procedure. Chief complaint: neoplasm screening Narrative: Sebastian Mendiola is a 72 year old male Presents for screening colonoscopy. Patient's current weight appetite and bowel movements are normal. Patient denies abdominal pain. He has had no bleeding. Family history noncontributory. Previous colonoscopy some years ago revealed adenomatous colon polyp most recent colonoscopies have not. Most recent colonoscopy 2018 unremarkable. Review of Systems Review of Systems: Review of systems noncontributory. [facility] Past Medical History Medical History Diabetes Diabetic peripheral neuropathy Hyperlipidemia Morbid obesity CHARLIE (obstructive sleep apnea) Streptococcal pneumonia w/ respiratory failure 10/2004 Suspected COVID-19 virus infection Surgical History Surgical History History of knee replacement 05/2014 History of tonsillectomy and adenoidectomy age 9 Family History Family History Father Acute myocardial infarction Mother Hypertension Family history of rheumatoid arthritis Sibling Hypertension Family history of rheumatoid arthritis Family history of malignant neoplasm Family history of kidney disease Other Family history of cardiovascular disease Social History Social History Social History: Retired, lives with . Smoking status: Never smoker Second hand tobacco smoke exposure: No Alcohol intake: never Substance use: never Substance use type: does not use Lack of Transportation: No Lack of Food: Never True Current Housing: I Have Housing Concerned About Future Housing: No Difficulty Paying Gas/Electric Bills: No Difficulty Paying for Meds: No Currently Unemployed: No Education: High School Diploma/GED Difficulty w/ Childcare or Family Care: No Living arrangements: with family Occupation/Education: retired Gender identity (if verbalized by the patient): Male Sexual Orientation (if Verbalized by the Patient): Straight or Heterosexual Spiritual care concerns: No Agree to blood products: Yes Meds Home Medications and Allergies Home Medications Medication Instructions Recorded Confirmed Type tamsulosin 0.4 mg capsule 0.4 mg PO DAILY #90 caps 03/15/22 10/29/22 Rx atorvastatin 40 mg tablet See Rx Instructions .Route 04/17/22 10/29/22 Rx .COMPLEX #90 tabs finasteride 5 mg tablet 5 mg PO DAILY 05/11/22 10/29/22 History pioglitazone 45 mg tablet 45 mg PO DAILY #90 tabs 08/09/22 10/29/22 Rx benzonatate 100 mg capsule 100 mg PO TID #30 caps 08/28/22 10/29/22 Rx gemfibrozil 600 mg tablet 600 mg PO BID #180 tabs 10/07/22 10/29/22 Rx metformin 750 mg tablet,extended 2,250 mg PO QPM #270 tabs 10/26/22 10/29/22 Rx release 24 hr Allergies Allergy/AdvReac Type Severity Reaction Status Date / Time No Known Allergies Allergy Verified 10/29/22 07:00 Vital Signs Vital Signs - 24 hr 10/29/22 06:50 Temperature 97.8 F Pulse Rate 64 Respiratory Rate 18 Blood Pressure 140/62 Pulse Oximetry 98 Oxygen Delivery Room Air Exam Narrative: Physical exam reveals patient to be alert. Vital signs stable. HEENT exam is unremarkable. Patient is anicteric. Lungs are clear to auscultation and percussion. Heart is without murmur or extra sounds. Abdomen bowel sounds are present soft nontender with no organomegaly. Digital external rectal exam is normal. Assessment and Plan Assessment and plan (1) Encounter for screening colonoscopy: Code(s): Z12.11 - Encounter for screening for malignant neoplasm of colon
--- NOTE | 2022-10-29 07:31 | WPDANESEPPF ---
Anes - Initial Pre Proc Eval Procedure: Operation Date: 10/29/22 08:00 Proposed Procedures p Colonoscopy - Flash Joseph MD Date/Time: 10/29/22 07:31 Surgeon: Flash Joseph MD Pre Op Diagnosis: neoplasm screening Patient Data Age: 72 Gender: M Height: 1.78 m Weight: 148.8 kg Last Vital Signs Temp 97.8 F 10/29/22 06:50 Pulse 64 10/29/22 06:50 Resp 18 10/29/22 06:50 BP 140/62 10/29/22 06:50 Pulse Ox 98 10/29/22 06:50 O2 Del Method Room Air 10/29/22 06:50 Allergies Allergy/AdvReac Type Severity Reaction Status Date / Time No Known Allergies Allergy Verified 10/29/22 07:00 Home Medications Medication Instructions Recorded Confirmed Type tamsulosin 0.4 mg capsule 0.4 mg PO DAILY #90 caps 03/15/22 10/29/22 Rx atorvastatin 40 mg tablet See Rx Instructions .Route 04/17/22 10/29/22 Rx .COMPLEX #90 tabs finasteride 5 mg tablet 5 mg PO DAILY 05/11/22 10/29/22 History pioglitazone 45 mg tablet 45 mg PO DAILY #90 tabs 08/09/22 10/29/22 Rx benzonatate 100 mg capsule 100 mg PO TID #30 caps 08/28/22 10/29/22 Rx gemfibrozil 600 mg tablet 600 mg PO BID #180 tabs 10/07/22 10/29/22 Rx metformin 750 mg tablet,extended 2,250 mg PO QPM #270 tabs 10/26/22 10/29/22 Rx release 24 hr Laboratory Tests 10/29/22 07:16 POC Capillary Glucose 153 H mg/dl (65-105) Patient hx anesthesia problems: none Family hx anesthesia problems: none Results Review: All pre-operative results and documents have been reviewed as part of the pre-operative evaluation. [facility] Past Medical History Medical History Diabetes Diabetic peripheral neuropathy Hyperlipidemia Morbid obesity CHARLIE (obstructive sleep apnea) Streptococcal pneumonia w/ respiratory failure 10/2004 Suspected COVID-19 virus infection Surgical History Surgical History History of knee replacement 05/2014 History of tonsillectomy and adenoidectomy age 9 Family History Family History Father Acute myocardial infarction Mother Hypertension Family history of rheumatoid arthritis Sibling Hypertension Family history of rheumatoid arthritis Family history of malignant neoplasm Family history of kidney disease Other Family history of cardiovascular disease Social History Social History Social History: Retired, lives with . Smoking status: Never smoker Second hand tobacco smoke exposure: No Alcohol intake: never Substance use: never Substance use type: does not use Lack of Transportation: No Lack of Food: Never True Current Housing: I Have Housing Concerned About Future Housing: No Difficulty Paying Gas/Electric Bills: No Difficulty Paying for Meds: No Currently Unemployed: No Education: High School Diploma/GED Difficulty w/ Childcare or Family Care: No Living arrangements: with family Occupation/Education: retired Gender identity (if verbalized by the patient): Male Sexual Orientation (if Verbalized by the Patient): Straight or Heterosexual Spiritual care concerns: No Agree to blood products: Yes Anes - Eval Final PreProcedure Day of Procedure 10/29/22 07:31 Patient weight: morbidly obese Heart: regular rate and rhythm Lungs: clear to auscultation Airway: Mallampati scale class III Neurological: alert and oriented Last oral intake: >/= 8 hours ASA classification: III Emergent: no Anesthetic plan: proceed Anesthesia type and monitoring: general GIVS and standard monitoring Results Review: All pre-operative results and documents have been reviewed as part of the pre-operative evaluation. Informed Consent: The patient's anesthetic plan and its attendant risks and benefits were discussed with the patient/fami
[2022-10-29 08:15] VITALS: BP 114/58; PULSE 79; RESP 22; O2SAT 98
[2022-10-29 08:25] VITALS: BP 118/62; PULSE 71; RESP 24; O2SAT 98
[2022-10-29 08:35] VITALS: BP 124/62; PULSE 70; RESP 24; O2SAT 98
== END 2022-10-29 08:45 | disposition home or self-care (01) ==
PROVIDERS: PCP Family Medicine; Visit Provider Internal Medicine Gastroenterology
PROC: 0DJD8ZZ Inspection of Lower Intestinal Tract, Via Natural or Artificial Opening Endoscopic (ICD-10-PCS; CPT 45378; principal; 2022-10-29 08:00)
DX: Z12.11 Encounter for screening for malignant neoplasm of colon (principal); D12.5 Benign neoplasm of sigmoid colon; K64.8 Other hemorrhoids; E11.42 Type 2 diabetes mellitus with diabetic polyneuropathy; E78.5 Hyperlipidemia, unspecified; G47.33 Obstructive sleep apnea (adult) (pediatric); Z79.84 Long term (current) use of oral hypoglycemic drugs; E66.01 Morbid (severe) obesity due to excess calories; Z68.42 Body mass index [BMI] 45.0-49.9, adult
CPT/HCPCS: 45385; 82948; 88305; J2704; J7120

== ENCOUNTER 2023-05-27 10:16 | Outpatient (CLI) | payer MEDICARE, SELFPAY ==
--- NOTE | ~2023-05-27 | XR_ITS ---
Left foot Technique: AP, oblique, and lateral views were obtained. Clinical History: Plantar fasciitis Findings: No acute fracture or dislocation is seen. Osseous alignment is anatomic. Joint spaces are p reserved without erosive or degenerative change. Soft tissues are unremarkable. Impression: Unremarkable left foot radiographs. Reviewed, dictated and finalized at [facility]. Impression: Unremarkable left foot radiographs.
== END 2023-05-27 10:17 | disposition home or self-care (01) ==
LOC: ANHIMG 10:25
PROVIDERS: PCP Family Medicine; Visit Provider Podiatrist Foot & Ankle Surgery
DX: M72.2 Plantar fascial fibromatosis (principal)
CPT/HCPCS: 73630

== ENCOUNTER 2023-06-25 23:29 | Emergency (ER) | payer MEDICARE, SELFPAY ==
--- NOTE | ~2023-06-25 | CT_ITS ---
EXAMINATION: CT diagnostic chest wo con DATE: 06/26/2023 00:06 INDICATION: R anterolateral rib pain s/p fall TECHNIQUE: Computed tomography (CT) of the chest was performed without intravenous contrast. Addition al 3D reconstructions utilizing coronal maximum intensity projection (MIP) were performed. Automated exposure control and iterative reconstruction technique were employed. The dose-length product was 92 8.37 mGy-cm. COMPARISON: None FINDINGS: Small calcified pulmonary nodules consistent with old granulomatous disease in the right upper lobe a nd in the right middle lobe along a small linear band of discoid atelectasis/scarring. No other suspi cious pulmonary nodules, pneumonia, pulmonary edema or pleural effusion. Heart size is normal. Athero sclerotic coronary artery calcific lesion. No pericardial effusion. Additional calcified mediastinal lymph nodes along with multiple small splenic calcific lesions and a few scattered hepatic calcific l esions all consistent with old granulomatous disease. No pathologically enlarged thoracic lymphadenop athy. Moderate thoracic spondylosis. No rib fractures identified. IMPRESSION: 1. No rib fracture or acute cardiopulmonary disease. Reviewed, dictated and finalized at location A.
[2023-06-25 23:36] VITALS: BP 140/63; PULSE 77; RESP 18; TEMP 36.8; O2SAT 100
--- NOTE | 2023-06-25 23:43 | ED.FALL ---
HPI - Fall General Chief Complaint: Fall Stated Complaint: fall, right rib pain Time Seen by Provider: 06/25/23 23:34 Source: patient Mode of arrival: ambulatory Limitations: no limitations History of Present Illness HPI Narrative: This is a 73-year-old male with PMH of diabetes, neuropathy, HLD, CHARLIE who presents to the ED with chief complaint of a fall that occurred just prior to arrival. Patient reports that he was walking through his bar after he had just turned the lights off and was only using his truck headlights. States he tripped on a mat on the floor and fell down to his right side. Reports pain significantly to the right anterior ribs. Denies any further sites of pain or injury. Denies head injury or LOC. Denies numbness, weakness. Pain with inspiration but no significant dyspnea. Denies cough, abdominal pain, nausea, vomiting. Related Data Home Medications Medication Instructions Recorded Confirmed finasteride 5 mg tablet 5 mg PO DAILY 05/11/22 01/25/23 Allergies Allergy/AdvReac Type Severity Reaction Status Date / Time No Known Allergies Allergy Verified 06/25/23 23:42 Review of Systems Review of Systems: All systems as dictated in [facility] Past Medical History Medical History (Updated 06/26/23 @ 00:42 by Jluis Woodard PA-C) Diabetes Diabetic peripheral neuropathy Hyperlipidemia Morbid obesity CHARLIE (obstructive sleep apnea) Streptococcal pneumonia w/ respiratory failure 10/2004 Suspected COVID-19 virus infection Surgical History Surgical History History of knee replacement 05/2014- bilateral knee History of tonsillectomy and adenoidectomy age 9 Family History Family History Father Acute myocardial infarction Mother Hypertension Family history of rheumatoid arthritis Sibling Hypertension Family history of rheumatoid arthritis Family history of malignant neoplasm Family history of kidney disease Other Family history of cardiovascular disease Social History Social History (Updated 01/25/23 @ 09:48 by Sonia Lucas CMA) Social History: Retired, lives with . Smoking status: Never smoker Second hand tobacco smoke exposure: No Alcohol intake: never Substance use: never Substance use type: does not use Current Housing: Decline to Answer Concerned About Future Housing: Decline to Answer Difficulty Paying Gas/Electric Bills: Decline to Answer Difficulty Paying for Meds: Decline to Answer Currently Unemployed: Decline to Answer Education: Decline to Answer Difficulty w/ Childcare or Family Care: Decline to Answer Living arrangements: with family Occupation/Education: retired Gender identity (if verbalized by the patient): Male Sexual Orientation (if Verbalized by the Patient): Straight or Heterosexual Spiritual care concerns: No Agree to blood products: Yes Exam Narrative: GENERAL: Well-appearing, well-nourished, and in no acute distress. HEAD: Normocephalic, atraumatic. EYES: PERRLA and EOMI. ENT: Nares clear, no rhinorrhea or epistaxis. Mucous membranes moist. Oropharynx without tonsillar hypertrophy exudate or other lesions. NECK: Supple. No adenopathy or masses. CHEST: No respiratory distress. Clear to auscultation. No wheezes rales or rhonchi. Moderate chest wall tenderness to the right anterolateral ribs. No bruising. No crepitus. Breath sounds equal bilaterally HEART: Regular rate and rhythm. No murmur heard. Normal peripheral pulses. ABDOMEN: Soft, nontender, nondistended, normal active bowel sounds. MSK: Normal range of motion. No edema. SKIN: Warm, dry, no rash. NEURO: Alert and oriented x3. No focal deficits. PSYCH: Normal mood and affect. Course Vital Signs Vital signs: Vital Signs Temperature 98.2 F 06/25/23 23:36 Pulse Rate 77 06/25/23 23:36
[2023-06-25] MEDS: HYDROcodone/acetaminophen (*CRX) 7.5-325 MG TABLET 1 TAB PO (23:53)
--- NOTE | 2023-06-25 23:56 | PC.NURSE ---
Patient taken to CT via stretcher at this time.
[2023-06-26 00:45] VITALS: BP 117/60; PULSE 73; RESP 16; O2SAT 100
[2023-06-26 01:02] VITALS: BP 117/60; PULSE 66; RESP 16; TEMP 36.6; O2SAT 99
== END 2023-06-26 01:04 | disposition home or self-care (01) ==
PROVIDERS: Emergency Provider Physician Assistant; PCP Family Medicine
DX: S29.9XXA Unspecified injury of thorax, initial encounter (principal); E78.5 Hyperlipidemia, unspecified; G47.33 Obstructive sleep apnea (adult) (pediatric); E11.42 Type 2 diabetes mellitus with diabetic polyneuropathy; E66.01 Morbid (severe) obesity due to excess calories; Z68.42 Body mass index [BMI] 45.0-49.9, adult; Z96.653 Presence of artificial knee joint, bilateral; W01.0XXA Fall on same level from slipping, tripping and stumbling without subsequent striking against object, initial encounter; Z79.84 Long term (current) use of oral hypoglycemic drugs
CPT/HCPCS: 71250; 99284; A9270

== ENCOUNTER 2023-10-12 10:58 | Outpatient (CLI) | payer MEDICARE, SELFPAY | END 2023-10-12 10:59 | disposition home or self-care (01) | PROVIDERS: PCP Family Medicine; Visit Provider Otolaryngology | DX: H80.92 Unspecified otosclerosis, left ear (principal); H69.92 Unspecified Eustachian tube disorder, left ear; H93.12 Tinnitus, left ear; H90.3 Sensorineural hearing loss, bilateral | CPT/HCPCS: 92557; 92567 ==

== ENCOUNTER 2023-11-11 20:29 | Emergency (ER) | payer MEDICARE, SELFPAY ==
[2023-11-11 20:44] VITALS: BP 121/47; PULSE 77; RESP 15; TEMP 36.3; O2SAT 100
--- NOTE | 2023-11-11 20:55 | ED.UPPEXIN ---
HPI - Extremity Injury (Upper) General Chief Complaint: Extremity Injury, Upper Stated Complaint: left elbow injury Time Seen by Provider: 11/11/23 20:51 Source: patient, RN notes reviewed and old records reviewed Mode of arrival: ambulatory Limitations: no limitations History of Present Illness HPI narrative: Patient presents with complaints of left elbow pain. He reports that he was run into by a horse earlier, was knocked off balance, landed on the left elbow. Injury was approximately 8 hours ago. He took some Tylenol, initially had some relief, now that Tylenol has worn off he is again experiencing pain. He has limited range of motion secondary to pain. He denies other injury and trauma, including head trauma. Related Data Allergies Allergy/AdvReac Type Severity Reaction Status Date / Time No Known Allergies Allergy Verified 11/11/23 20:45 Review of Systems Review of Systems: All systems reviewed & are unremarkable except as noted in HPI and below Constitutional: Constitutional: Reports no additional constitutional complaints ENT: Reports system reviewed and no additional complaints, except as documented Cardiovascular: Cardiovascular: Reports no additional cardiovascular complaints Respiratory: Respiratory: Reports no additional respiratory complaints Gastrointestinal: Gastrointestinal: Reports no additional gastrointestinal complaints Musculoskeletal: Musculoskeletal: Reports arthralgias (Left elbow) PMFSH Past Medical History Medical History Diabetes Diabetic peripheral neuropathy Hyperlipidemia Morbid obesity CHARLIE (obstructive sleep apnea) Streptococcal pneumonia w/ respiratory failure 10/2004 Suspected COVID-19 virus infection Surgical History Surgical History History of knee replacement 05/2014- bilateral knee History of tonsillectomy and adenoidectomy age 9 Family History Family History Father Acute myocardial infarction Mother Hypertension Family history of rheumatoid arthritis Sibling Hypertension Family history of rheumatoid arthritis Family history of malignant neoplasm Family history of kidney disease Other Family history of cardiovascular disease Social History Social History Social History: Retired, lives with . Smoking status: Never smoker Second hand tobacco smoke exposure: No Alcohol intake: never Substance use: never Substance use type: does not use Current Housing: Decline to Answer Concerned About Future Housing: Decline to Answer Difficulty Paying Gas/Electric Bills: Decline to Answer Difficulty Paying for Meds: Decline to Answer Currently Unemployed: Decline to Answer Education: Decline to Answer Difficulty w/ Childcare or Family Care: Decline to Answer Living arrangements: with family Occupation/Education: retired Gender identity (if verbalized by the patient): Male Sexual Orientation (if Verbalized by the Patient): Straight or Heterosexual Spiritual care concerns: No Agree to blood products: Yes Exam Const: General: cooperative, no acute distress, alert and awake Orientation/consciousness: oriented to person, oriented to place and oriented to time HENMT: Head: normal to inspection Resp: Effort & Inspection: normal respiratory effort and able to speak in complete sentences Auscultation: clear to auscultation bilaterally, no crackles, no rales, no rhonchi and no wheezes Cardio: Palpation: normal PMI Rate: regular rate Rhythm: regular rhythm Heart sounds: S1 normal heart sound present and S2 normal heart sound present Neuro: General: oriented to person, oriented to place and oriented to time Cranial nerves: Yes CN's II-XII intact bilaterally Extrem: Left upper extremity: normal
== END 2023-11-11 21:06 | disposition short-term general hospital (02) ==
PROVIDERS: Emergency Provider Nurse Practitioner Family; PCP Family Medicine
DX: M25.522 Pain in left elbow (principal); E11.42 Type 2 diabetes mellitus with diabetic polyneuropathy; E78.5 Hyperlipidemia, unspecified; E66.01 Morbid (severe) obesity due to excess calories; Z96.653 Presence of artificial knee joint, bilateral
CPT/HCPCS: 99212; A4565; G0463

== ENCOUNTER 2023-11-11 21:30 | Emergency (ER) | payer MEDICARE, SELFPAY ==
--- NOTE | ~2023-11-11 | XR_ITS ---
EXAMINATION: XR elbow LT 2V DATE: 11/11/2023 22:03 INDICATION: Left elbow pain. Fall. TECHNIQUE: 2 views of left elbow were obtained. COMPARISON: Left elbow radiographs 10/17/2018 FINDINGS: Bone alignment is normal. No fracture. There is mild elbow joint osteoarthritis. There are enthesophytes at medial and lateral humeral epicondyles. There is a large elbow joint effusion. IMPRESSION: 1. Large elbow joint effusion. No fracture identified. 2. Mild elbow joint osteoarthritis. Reviewed, dictated and finalized at location A.
--- NOTE | ~2023-11-11 | CT_ITS ---
Noncontrast CT scan of the left elbow CLINICAL HISTORY: Status post fall TECHNIQUE: Axial noncontrast imaging of the elbow was performed. Sagittal and coronal reformatted tony ges were constructed. Dose reduction technique was used on this scan by utilizing automated exposure control and iterative reconstruction technique. The dose-length product (DLP) was 372.93 mGy-cm. Findings: Exam mildly degraded by motion artifact. Suspected nearly nondisplaced subtle fracture of t he volar aspect of the radial head. No dislocation seen. No other fracture seen. There is moderate el bow joint effusion. There is mild degenerative change of the elbow joint. IMPRESSION: Suspected nearly nondisplaced subtle fracture of the lateral aspect of the radial head. Elbow joint effusion. Mild degenerative change of the elbow joint. Reviewed, dictated and finalized at [facility]. IMPRESSION: Suspected nearly nondisplaced subtle fracture of the lateral aspect of the radi al head. Elbow joint effusion. Mild degenerative change of the elbow joint.
[2023-11-11 21:32] VITALS: BP 134/50; PULSE 94; RESP 18; TEMP 36.8; O2SAT 99
[2023-11-11 23:00] VITALS: BP 146/76; PULSE 90; RESP 18; TEMP 36.6; O2SAT 98
[2023-11-11] MEDS: HYDROcodone/acetaminophen (*CRX) 5-325 MG TABLET 1 TAB PO (23:27)
--- NOTE | 2023-11-12 01:06 | ED.GENADULT ---
HPI - General Adult General Chief complaint: Extremity Injury, Upper Stated complaint: kicked by horse in L elbow Time Seen by Provider: 11/11/23 22:25 History of Present Illness HPI narrative: Patient is a 73-year-old male who presents to the emergency department this evening after sustaining a left elbow injury. Patient states that he was out in the barn next to horse and baby horse send ago it and the 5 month baby horse knocked him off his feet and patient lying down his left elbow. Patient believes that the horse wanted more treats. Patient denies hitting his head and is currently denying any additional injuries other than the fact that he cannot move his left elbow. No additional symptoms or concerns at this time. Related Data Allergies Allergy/AdvReac Type Severity Reaction Status Date / Time No Known Allergies Allergy Verified 11/11/23 20:45 Review of Systems Review of Systems: All systems are reviewed and are negative unless stated otherwise in the HPI. PMF Past Medical History Medical History Diabetes Diabetic peripheral neuropathy Hyperlipidemia Morbid obesity CHARLIE (obstructive sleep apnea) Streptococcal pneumonia w/ respiratory failure 10/2004 Suspected COVID-19 virus infection Surgical History Surgical History History of knee replacement 05/2014- bilateral knee History of tonsillectomy and adenoidectomy age 9 Family History Family History Father Acute myocardial infarction Mother Hypertension Family history of rheumatoid arthritis Sibling Hypertension Family history of rheumatoid arthritis Family history of malignant neoplasm Family history of kidney disease Other Family history of cardiovascular disease Social History Social History Social History: Retired, lives with . Smoking status: Never smoker Second hand tobacco smoke exposure: No Alcohol intake: never Substance use: never Substance use type: does not use Current Housing: Decline to Answer Concerned About Future Housing: Decline to Answer Difficulty Paying Gas/Electric Bills: Decline to Answer Difficulty Paying for Meds: Decline to Answer Currently Unemployed: Decline to Answer Education: Decline to Answer Difficulty w/ Childcare or Family Care: Decline to Answer Living arrangements: with family Occupation/Education: retired Gender identity (if verbalized by the patient): Male Sexual Orientation (if Verbalized by the Patient): Straight or Heterosexual Spiritual care concerns: No Agree to blood products: Yes Exam Narrative: General: Alert, awake, afebrile, in no acute distress. HEENT: PERRL, no rhinorrhea, no post nasal drip, oropharynx clear. Cardiovascular: Regular rate and rhythm, no murmurs, rubs or gallops, no peripheral edema. Respiratory: Clear to auscultation bilaterally, no tachypnea, no wheezing, no rhonchi, no rubs, no respiratory distress. Abdomen: Soft, nontender, nondistended, no rebound, no guarding, no peritoneal signs. Musculoskeletal: Tenderness to palpation over the left elbow joint, no obvious swelling noted, patient has his left shoulder in a flexed position and is unable to extended and states that any rotation movements of his wrist elicits severe pain. Intact left radial and ulnar pulses, patient is neurovascularly intact. Skin: No rashes or petechia, no signs of infection. Neurological: Alert and oriented to person, place, and time. Follows all commands. No focal deficits, speech is clear and fluent. Course Vital Signs Vital signs: Vital Signs Temperature 98.2 F 11/11/23 21:32 Pulse Rate 94 11/11/23 21:32 Respiratory Rate 18 11/11/23 21:32 Blood Pressure 134/50 L 11/11/23 21:32 Pulse Oximetry 99
--- NOTE | 2023-11-12 01:08 | PC.NURSE ---
vrbrenda [id number] mg im x [address] fowler
[2023-11-12] MEDS: KETOROLAC 30 MG/ML VIAL (*BKC) 15 MG IM (01:12)
[2023-11-12 02:00] VITALS: BP 136/89; PULSE 90; RESP 18; TEMP 37.2; O2SAT 98
[2023-11-12 04:12] VITALS: BP 136/86; PULSE 77; RESP 13; TEMP 37.1; O2SAT 97
--- NOTE | 2023-11-12 04:26 | PC.NURSE ---
[facility]
[2023-11-12] MEDS: HYDROcodone/acetaminophen (*CRX) 5-325 MG TABLET 1 TAB PO (04:37)
== END 2023-11-12 04:40 | disposition home or self-care (01) ==
PROVIDERS: Emergency Provider Emergency Medicine; PCP Family Medicine
DX: S52.125A Nondisplaced fracture of head of left radius, initial encounter for closed fracture (principal); E11.42 Type 2 diabetes mellitus with diabetic polyneuropathy; E78.5 Hyperlipidemia, unspecified; E66.01 Morbid (severe) obesity due to excess calories; Z68.42 Body mass index [BMI] 45.0-49.9, adult; G47.33 Obstructive sleep apnea (adult) (pediatric); M19.022 Primary osteoarthritis, left elbow; W55.12XA Struck by horse, initial encounter
CPT/HCPCS: 29105; 73070; 73200; 96372; 99284; A4565; A9270; J1885

== ENCOUNTER 2024-11-21 00:29 | Day surgery (SDC) | payer MEDICARE, SELFPAY ==
[2024-11-14 12:39] VITALS: BMI 40.3
--- OUTSIDE RECORDS SUMMARY | 2024-11-21 00:31 | XMS_ITS | Clinical Summary ---
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
[2024-11-21 11:49] VITALS: BP 119/61; PULSE 63; RESP 20; TEMP 36.3; O2SAT 99
--- NOTE | 2024-11-21 12:05 | WPDANESEPPF ---
Anes - Initial Pre Proc Eval Procedure: Operation Date: 11/21/24 13:15 Proposed Procedures p Esophagogastroduodenoscopy EGD - Mckinley Terry MD Date/Time: 11/21/24 12:05 Surgeon: Mckinley Terry MD Pre Op Diagnosis: Dysphagia, unspecified Patient Data Age: 74 Gender: M Height: 1.78 m Weight: 126.4 kg Last Vital Signs Temp 36.3 C L 11/21/24 11:49 Pulse 63 11/21/24 11:49 Resp 20 11/21/24 11:49 BP 119/61 11/21/24 11:49 Pulse Ox 99 11/21/24 11:49 O2 Del Method Room Air 11/21/24 11:49 Allergies Allergy/AdvReac Type Severity Reaction Status Date / Time No Known Allergies Allergy Verified 11/21/24 11:46 Home Medications ?Medication ?Instructions ?Recorded ?Confirmed ?Type gemfibrozil 600 mg tablet 600 mg PO BID #180 tabs 07/14/23 11/21/24 Rx atorvastatin 40 mg tablet See Rx Instructions .Route 12/31/23 11/21/24 Rx .COMPLEX #90 tabs lorazepam 1 mg tablet 1 mg PO DAILY PRN anxiety #5 tabs 07/06/24 11/14/24 Rx furosemide 20 mg tablet 20 mg PO QAM #180 tabs 07/17/24 11/21/24 Rx gabapentin 100 mg capsule 100 mg PO TID #90 caps 08/03/24 11/21/24 Rx solifenacin 10 mg tablet (Vesicare) 10 mg PO DAILY #30 tabs 08/03/24 11/21/24 Rx pioglitazone 45 mg tablet 45 mg PO DAILY #90 tabs 08/14/24 11/21/24 Rx tamsulosin 0.4 mg capsule 0.4 mg PO DAILY #90 caps 09/18/24 11/21/24 Rx metformin 500 mg tablet,extended 1,000 mg (2 x 500 mg) PO BID #120 10/02/24 11/21/24 Rx release 24 hr tabs cyanocobalamin (vitamin B-12) 1,000 mcg PO DAILY #30 caps 10/03/24 11/21/24 Rx 1,000 mcg capsule finasteride 5 mg tablet 5 mg PO DAILY #90 tabs 10/04/24 11/21/24 Rx Patient hx anesthesia problems: none Family hx anesthesia problems: none Results Review: All pre-operative results and documents have been reviewed as part of the pre-operative evaluation. [facility] Past Medical History Medical History Adenomatous colon polyp Early satiety Anemia Dysphagia Weight loss Arthritis Frequent urination Shortness of breath CHARLIE (obstructive sleep apnea) Suspected COVID-19 virus infection Diabetes Morbid obesity Hyperlipidemia Diabetic peripheral neuropathy Streptococcal pneumonia w/ respiratory failure 10/2004 Surgical History Surgical History History of tonsillectomy and adenoidectomy age 9 History of knee replacement 05/2014- bilateral knee Family History Family History Father Acute myocardial infarction Mother Hypertension Family history of rheumatoid arthritis Sibling Hypertension Family history of rheumatoid arthritis Family history of malignant neoplasm Family history of kidney disease Unknown Diabetes mellitus Heart disease Hypertension Family history of kidney disease Other Family history of cardiovascular disease Social History Social History Social History: Retired, lives with . Smoking status: Never smoker Second hand tobacco smoke exposure: No Alcohol intake: never Substance use: never Substance use type: does not use Do You Feel Safe in your Home?: Yes Lack of Transportation: No Lack of Food: Never True Current Housing: I Have Housing Concerned About Future Housing: No Difficulty Paying Gas/Electric Bills: No Difficulty Paying for Meds: No Currently Unemployed: No Education: High School Diploma/GED Difficulty w/ Childcare or Family Care: No Living arrangements: with family Occupation/Education: retired Gender identity (if verbalized by the patient): Male Sexual Orientation (if Verbalized by the Patient): Straight or Heterosexual Spiritual care concerns: No Agree to blood products: Yes Anes - Eval Final PreProcedure Day of Procedure 11/21/24 12:05 Patient weight: morbidly obese Heart: regular rate and rhythm Lungs: clear to auscultation Airway: Mallampati scale class II Neurological: alert and oriented Last oral intake: >/= 8 hours ASA classification: III Emergent: no Anesthetic plan: proceed Anesthesia type and monitoring: general GIVS and standard monitoring Results Review: All pre-operative results and documents have been reviewed as part of the pre-operative evaluation. Informed Consent: The patient's anesthetic plan and its attendant risks and benefits were discussed with the patient/family/POA. Questions were solicited and answers provided to the satisfaction of the patient/family/POA.
[2024-11-21] MEDS: LACTATED RINGERS 1,000 ML 150 ML IV CONT (12:06)
[2024-11-21] MEDS: SIMETHICONE ORAL SUSPENSION 20 MG/0.3 ML 30 ML BOTTLE 1.8 ML PO (12:06)
--- NOTE | 2024-11-21 13:27 | PM.IMHP ---
H&P: HPI History of Present Illness Date/Time: 11/21/24 13:27 Chief Complaint: Severe weight loss -early satiety Narrative: the patient is referred for EGD, for the investigation of a severe weight loss, associated with early satiety. He endorses some occasional difficulty swallowing but no nausea, vomiting, hematemesis, melena or hematochezia. Review of Systems Review of Systems: All systems reviewed & are unremarkable except as noted in HPI and below PMFSH Past Medical History Medical History Adenomatous colon polyp Early satiety Anemia Dysphagia Weight loss Arthritis Frequent urination Shortness of breath CHARLIE (obstructive sleep apnea) Suspected COVID-19 virus infection Diabetes Morbid obesity Hyperlipidemia Diabetic peripheral neuropathy Streptococcal pneumonia w/ respiratory failure 10/2004 Surgical History Surgical History History of tonsillectomy and adenoidectomy age 9 History of knee replacement 05/2014- bilateral knee Family History Family History Father Acute myocardial infarction Mother Hypertension Family history of rheumatoid arthritis Sibling Hypertension Family history of rheumatoid arthritis Family history of malignant neoplasm Family history of kidney disease Unknown Diabetes mellitus Heart disease Hypertension Family history of kidney disease Other Family history of cardiovascular disease Social History Social History Social History: Retired, lives with . Smoking status: Never smoker Second hand tobacco smoke exposure: No Alcohol intake: never Substance use: never Substance use type: does not use Do You Feel Safe in your Home?: Yes Lack of Transportation: No Lack of Food: Never True Current Housing: I Have Housing Concerned About Future Housing: No Difficulty Paying Gas/Electric Bills: No Difficulty Paying for Meds: No Currently Unemployed: No Education: High School Diploma/GED Difficulty w/ Childcare or Family Care: No Living arrangements: with family Occupation/Education: retired Gender identity (if verbalized by the patient): Male Sexual Orientation (if Verbalized by the Patient): Straight or Heterosexual Spiritual care concerns: No Agree to blood products: Yes Meds Home Medications and Allergies Home Medications ?Medication ?Instructions ?Recorded ?Confirmed ?Type gemfibrozil 600 mg tablet 600 mg PO BID #180 tabs 07/14/23 11/21/24 Rx atorvastatin 40 mg tablet See Rx Instructions .Route 12/31/23 11/21/24 Rx .COMPLEX #90 tabs lorazepam 1 mg tablet 1 mg PO DAILY PRN anxiety #5 tabs 07/06/24 11/14/24 Rx furosemide 20 mg tablet 20 mg PO QAM #180 tabs 07/17/24 11/21/24 Rx gabapentin 100 mg capsule 100 mg PO TID #90 caps 08/03/24 11/21/24 Rx solifenacin 10 mg tablet (Vesicare) 10 mg PO DAILY #30 tabs 08/03/24 11/21/24 Rx pioglitazone 45 mg tablet 45 mg PO DAILY #90 tabs 08/14/24 11/21/24 Rx tamsulosin 0.4 mg capsule 0.4 mg PO DAILY #90 caps 09/18/24 11/21/24 Rx metformin 500 mg tablet,extended 1,000 mg (2 x 500 mg) PO BID #120 10/02/24 11/21/24 Rx release 24 hr tabs cyanocobalamin (vitamin B-12) 1,000 mcg PO DAILY #30 caps 10/03/24 11/21/24 Rx 1,000 mcg capsule finasteride 5 mg tablet 5 mg PO DAILY #90 tabs 10/04/24 11/21/24 Rx Allergies Allergy/AdvReac Type Severity Reaction Status Date / Time No Known Allergies Allergy Verified 11/21/24 11:46 Vital Signs Vital Signs - 24 hr 11/21/24 11:49 Temperature 97.3 F L Pulse Rate 63 Respiratory Rate 20 Blood Pressure 119/61 Pulse Oximetry 99 Oxygen Delivery Room Air Exam Const: General: cooperative and healthy appearing Resp: Effort & Inspection: normal respiratory effort and able to speak in complete sentences Auscultation: clear to auscultation bilaterally Cardio: Rate: regular rate Rhythm: regular rhythm GI: Inspection: normal to inspection GI Palp: No No hepatosplenomegaly present Auscultation: normal bowel sounds Rectal Exam: deferred Skin: General skin exam: normal color Psych: Appearance: grossly normal Mental Status: mental status grossly normal Assessment and Plan Assessment and plan (1) Weight loss: Code(s): R63.4 - Abnormal weight loss Status: Acute Assessment and Plan: The patient is deemed a good candidate for the procedure. Consent signed. Will proceed.
[2024-11-21 13:47] VITALS: BP 112/53; PULSE 73; RESP 26; O2SAT 98
[2024-11-21 13:57] VITALS: BP 130/59; PULSE 71; RESP 20; O2SAT 99
[2024-11-21 14:07] VITALS: BP 130/62; PULSE 77; RESP 18; O2SAT 99
== END 2024-11-21 14:11 | disposition home or self-care (01) ==
PROVIDERS: PCP Family Medicine; Visit Provider Internal Medicine Gastroenterology
PROC: 0DJ08ZZ Inspection of Upper Intestinal Tract, Via Natural or Artificial Opening Endoscopic (ICD-10-PCS; CPT 43235; principal; 2024-11-21 13:15)
DX: K29.30 Chronic superficial gastritis without bleeding (principal); E78.5 Hyperlipidemia, unspecified; E11.42 Type 2 diabetes mellitus with diabetic polyneuropathy; D64.9 Anemia, unspecified; R35.0 Frequency of micturition; G47.33 Obstructive sleep apnea (adult) (pediatric); M19.90 Unspecified osteoarthritis, unspecified site; E66.01 Morbid (severe) obesity due to excess calories; Z68.41 Body mass index [BMI] 40.0-44.9, adult; Z79.84 Long term (current) use of oral hypoglycemic drugs; Z98.890 Other specified postprocedural states; Z86.0100 Personal history of colon polyps, unspecified; Z80.9 Family history of malignant neoplasm, unspecified; Z82.49 Family history of ischemic heart disease and other diseases of the circulatory system
CPT/HCPCS: 43235; 82948; J2003; J2704; J7120

== ENCOUNTER 2024-11-25 18:14 | Inpatient (IN) | payer MEDICARE, SELFPAY ==
[2024-11-25] VITALS (12 sets, daily range): BP systolic 117–137; BP diastolic 46–75; PULSE 72–104; RESP 9–31; TEMP 36.8; O2SAT 84–100
--- NOTE | ~2024-11-25 | CT_ITS ---
Sebastian Mendiola EXAMINATION: CT abdomen pelvis w con COMPARISON: None HISTORY: L [place] and and flank pain, uti TECHNIQUE: Axial images were obtained through the abdomen, pelvis post administration of IV contrast. Oral contrast was also administered. Coronal reconstruction images were obtained from the axial views. CT scan performed using dose optimization techniques including the following automated exposure control; adjustment of mA and/or kV; use of iterative reconstruction technique. Automatic exposure control was used to reduce radiation dose. Permanent radiation dose record is archived to PACS. FINDINGS: CT abdomen: LUNG BASES: The lung bases are clear. The visualized portions of the heart and pericardium are unremarkable. LIVER: Calcified liver granulomas. Moderate hepatic steatosis. The liver is enlarged. Portal vein patent. No intrahepatic biliary duct dilatation. SPLEEN: Calcified splenic granulomas.. KIDNEYS: Right Kidney: Unremarkable. No calculi. No hydronephrosis. Left Kidney: Unremarkable. No calculi. No hydronephrosis ADRENAL GLANDS: Unremarkable. PANCREAS: Unremarkable. GALLBLADDER/BILIARY: Minimal cholelithiasis. STOMACH AND ESOPHAGUS: Visualized stomach and esophagus within normal limits. BOWEL/MESENTERY: Moderate fecal content, no colitis or diverticulitis. Appendix not identified. Nonspecific ill-defined stranding within the mesentery. No dilated small bowel loops. 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 FREE FLUID OR FREE AIR: No free fluid.. CT pelvis: SOLID ORGANS/REPRODUCTIVE: Prostate prominent correlate with PSA. BLADDER: There is thickening of the bladder wall perivesicular stranding. OSSEOUS STRUCTURES: No acute osseous abnormality.No suspicious lesions. OVERLYING SOFT TISSUES: Mild soft tissue anasarca. Bilateral small fat- containing inguinal hernia. IMPRESSION: 1. Probable cystitis. Reviewed, dictated and finalized at location A. IMPRESSION: 1. Probable cystitis.
--- NOTE | ~2024-11-25 | US_ITS ---
EXAMINATION: US renal BI, 11/26/2024 16:21 CDT HISTORY: J CARLOS Comparison: None Technique: Swann-scale and color Doppler images were obtained. Findings: KIDNEYS: The renal cortices are intact with no hydronephrosis. Right Kidney: Right kidney 13.4 x 7 x 6.4 cm, normal. Left Kidney: Left kidney midpole probable noncalcified calculus 6 x 7 mm. Left kidney 12.5 x 5.7 x 7.2 cm, no masses or hydronephrosis. Bladder: The bladder is unremarkable. . Impression: 1. Left renal calculus. No hydronephrosis Reviewed, dictated and finalized at location A. Impression: 1. Left renal calculus. No hydronephrosis
--- NOTE | ~2024-11-25 | XR_ITS ---
EXAMINATION: XR chest 1V portable COMPARISON: No comparisons available. HISTORY: SOB FINDINGS: Mild pulmonary venous congestion. No pneumothorax. Mild cardiomegaly. Mediastinal and hilar contours are within normal limits. Bony thorax no acute abnormality. Miscellaneous: None Impression: Mild CHF Reviewed, dictated and finalized at location A. Impression: Mild CHF
--- OUTSIDE RECORDS SUMMARY | 2024-11-25 18:16 | XMS_ITS | Clinical Summary ---
Author Organization [facility] Address [address] [place] [id number] Phone Care Team Providers Care Inker Machine Name Role Phone Unavailable Primary Care Provider Unavailabl e Medications atorvastatin (LIPITOR) 40 MG tablet 1 daily 04/20/2015 Active tamsulosin (FLOMAX) 0.4 MG 24 hr capsule 1 dakly 04/20/2015 Activ e pioglitazone (ACTOS) 45 MG tablet 1 daily 04/20/2015 Active ezetimibe (ZETIA) 10 MG tablet 1 daily 04/20/2015 Active metFORMIN XR (GLUCOPHATE-XR) 500 MG 24 hr tablet 4 qevening 04/20/2015 Active hydrOXYzine (ATARAX) 25 MG tablet prn 04/20/2015 Active gemfibrozil (LOPID) 600 MG tablet 1 bid 04/20/2015 Active traMADol (ULTRAM) 50 MG tablet 1 prn 04/20/2015 Active Active Problems Problem Noted Date Diagnosed Date Type 2 diabetes mellitus without complication Acute kidney failure 04/22/2015 Other hyperlipidemia 04/22/2015 Overview (05/28/2018): Converted unresolved ICD9, potential mismatch. Family History Medical History Relation Comments Coronary arteriosclerosis Father Kidney disease Sibling Kidney stone Neg Hx Relation Status Comments Father Sibling Social History Tobacco Use Types Packs/Day Years Used Date Smoking Tobacco: Never Assessed Sex and Gender Information Value Date Recorded Sex Assigned at Not on file Legal Sex Male 8:51 AM MST Gender Identity Not on file Sexual Orientation Not on file Last Filed Vital Signs Vital Sign Reading Time Taken Comments Blood Pressure 118/60 04/22/2015 12:01 AM [employer] Pulse 72 04/22/2015 12:01 AM [employer] Temperature 36.9 C (98.5 F) 04/22/2015 12:01 AM [employer] Respiratory Rate - - Oxygen Saturation - - Inhaled Oxygen Concentration - - Weight 148 kg (326 lb) 04/22/2015 12:01 AM [employer] Height 177.8 cm (5' 10) 04/22/2015 12:01 AM [employer] Body Mass Index 46.78 04/22/2015 12:01 AM [employer]OGRAPH [employer] Plan of Treatment Not on file
[2024-11-25 20:57] LABS: Hematocrit 35.4 % (42.0-52.0); Hemoglobin 11.3 g/dL (14.0-18.0); Immature Granulocyte Percent A 0.8 % (0-0.5); Lymphocytes Absolute Auto 0.65 K/mm3 (0.9-3.2); Mean Corpuscular HGB Conc 31.9 g/dl (32-36); Mean Corpuscular Hemoglobin 30.4 pg (26-34); Mean Corpuscular Volume 95.2 fl (80-100); Nucleated Red Blood Cells Absolute Auto 0.000 K/mm3 (0.0-0.012); Nucleated Red Blood Cells Perc 0.0 % (0.0-0.2); Platelet Count Result 205 k/mm3 (150-375); Red Blood Count 3.72 M/mm3 (4.6-6.20); White Blood Count 10.2 K/mm3 (4.5-10.0)
[2024-11-25 21:08] LABS: Alanine Aminotransferase 15 U/L (6-50); Albumin Level 4.4 g/dL (3.5-5.1); Alkaline Phosphatase 76 U/L (38-126); Anion Gap 10 mmol/L (4-12); Aspartate Amino Transferase 26 U/L (17-59); Bilirubin,Total 0.8 mg/dL (0.2-1.3); Blood Urea Nitrogen 22 mg/dL (9-20); Calcium 9.7 mg/dL (8.4-10.2); Carbon Dioxide 24 mmol/L (22-30); Chloride 102 mmol/L (98-107); Estimated CRCL calculation 62 ml/min; Estimated Glomerular Filt Rate 56; Glucose 166 mg/dL (65-110); Lipase 45 U/L (23-300); Potassium 4.2 mmol/L (3.4-5.0); Sodium 136 mmol/L (137-145); Total Protein 7.5 g/dL (6.3-8.2)
[2024-11-25 21:38] LABS: Add Urine Microscopic? YES; Appearance Urine Turbid (Clear); Glucose Urine UA Negative (Negative); Leukocyte Esterase Ur 2+ LEU/UL (Negative); Nitrate Urine Positive (Negative); Specific Grav Ur 1.022 (1.001-1.035)
[2024-11-25 22:10] LABS: Need Manual Microscopic Yes
[2024-11-25] MEDS: MORPHINE SULFATE (*CRX) 4 MG/ML INJ IV PUSH (22:41)
[2024-11-25] MEDS: ONDANSETRON INJ 4 MG/2 ML VIAL IV PUSH (22:41)
[2024-11-25] MEDS: SODIUM CHLORIDE 0.9% IV 1,000 ML 999 ML IV CONT (22:59)
[2024-11-25] MEDS: cefTRIAXone 1 GM in SODIUM CHLORIDE 0.9% IV 50 ML 100 ML IVPB (23:00)
[2024-11-25] MEDS: HYDROmorphone HCL INJ (*CRX) 1 MG/ML SYR 0.5 MG IV PUSH (23:29)
[2024-11-26] VITALS (22 sets, daily range): BP systolic 81–127; BP diastolic 41–91; PULSE 90–124; RESP 16–35; TEMP 36.4–37.9; O2SAT 91–100; BMI 40.1
--- NOTE | 2024-11-26 00:34 | ED_ITS ---
HPI - Abdominal Pain General Chief Complaint: Abdominal Pain <LINDA Negro Last Filed: 11/26/24 02:19> Stated Complaint: abd pain <LINDA Negro Last Filed: 11/26/24 02:19> Time Seen by Provider: 11/25/24 21:06 <LINDA Negro Last Filed: 11/26/24 02:19> Source: patient <LINDA Negro Last Filed: 11/26/24 02:19> Mode of arrival: ambulatory <LINDA Negro Last Filed: 11/26/24 02:19> Limitations: no limitations <LINDA Negro Last Filed: 11/26/24 02:19> History of Present Illness HPI narrative: Patient is a 74-year-old male who presents the ED with report of left- sided flank pain. Patient reports he began having pain throughout his left flank, radiating to his left lower abdomen this afternoon. States pain has been severe. Denies history of similar pain. Denies history of kidney stones. Does report that he has been having some difficulty urinating today, decreased urination. Reports mild nausea, denies vomiting, diarrhea, constipation, fevers. Patient states that he has lost around 80 lb unintentionally over the last few months. He has seen GI for this recently and had EGD which was unremarkable. Reports overall decreased appetite. <LINDA Negro Last Filed: 11/26/24 02:19> Related Data Allergies/Adverse Reactions: Allergies Allergy/AdvReac Type Severity Reaction Status Date / Time No Known Allergies Allergy Verified 11/21/24 11:46 <LINDA Negro Last Filed: 11/26/24 02:19> Review of Systems 2 Review of Systems: All systems reviewed & are unremarkable except as noted in HPI. <LINDA Negro Last Filed: 11/26/24 02:19> All systems reviewed & are unremarkable except as noted in HPI and below < LINDA Negro Last Filed: 11/26/24 02:19> [facility] Past Medical History Medical History: Medical History Adenomatous colon polyp Early satiety Anemia Dysphagia Weight loss (~11/21/24) Arthritis Frequent urination Shortness of breath CHARLIE (obstructive sleep apnea) Suspected COVID-19 virus infection Diabetes Morbid obesity Hyperlipidemia Diabetic peripheral neuropathy Streptococcal pneumonia w/ respiratory failure 10/2004 <Corina Swanson PA-C - Last Filed: 11/26/24 02:19> Surgical History Surgical History: Surgical History History of tonsillectomy and adenoidectomy age 9 History of knee replacement 05/2014- bilateral knee <Corina Swanson PA-C - Last Filed: 11/26/24 02:19> Family History Family History: Family History Father Acute myocardial infarction Mother Hypertension Family history of rheumatoid arthritis Sibling Hypertension Family history of rheumatoid arthritis Family history of malignant neoplasm Family history of kidney disease Unknown Diabetes mellitus Heart disease Hypertension Family history of kidney disease Other Family history of cardiovascular disease <Corina Swanson PA-C - Last Filed: 11/26/24 02:19> Social History Social History: Social History Social History: Retired, lives with . Smoking status: Never smoker Second hand tobacco smoke exposure: No Alcohol intake: never Substance use: never Substance use type: does not use Do You Feel Safe in your Home?: Yes Lack of Transportation: No Lack of Food: Never True Current Housing: I Have Housing Concerned About Future Housing: No Difficulty Paying Gas/Electric Bills: No Difficulty Paying for Meds: No Currently Unemployed: No Education: Decline to Answer Difficulty w/ Childcare or Family Care: No Living arrangements: with family Occupation/Education: retired Gender identity (if verbalized by the patient): Male Sexual Orientation (if Verbalized by the Patient): Straight or Heterosexual Spiritual care concerns: No Agree to blood products: Yes <Corina Swanson PA-C - Last Filed: 11/26/24 02:19> Exam 2 Narrative: GENERAL: Mildly ill-appearing, uncomfortable appearing, obese with BMI of 39.5, non-toxic, in no acute distress. HEAD: Normocephalic, atraumatic. RESPIRATORY: Airway patent, respirations nonlabored. Clear to auscultation bilaterally, no rales, rhonchi, wheezing. CARDIOVASCULAR: Regular rate and rhythm without murmurs, rubs, or gallops. ABDOMINAL: Soft, diffuse tenderness throughout left-sided mid to upper abdomen, positive CVA tenderness on left, nondistended. Normoactive BS. MUSCULOSKELETAL: Moves all extremities. No gross deformities. SKIN: Warm, dry, normal color. NEURO: A&O X3. Speech clear. Cranial nerves II-XII grossly intact. Steady gait. No ataxic movements. PSYCHIATRIC: Appropriate mood and affect. Normal interaction. <Corina Swanson PA-C - Last Filed: 11/26/24 02:19> Course [employer] PROGRAM TEACHER/PA Physician Supervision This visit was performed by both a physician and an APC. For this patient encounter, I reviewed the AFTER SCHO[employer] PROGRAM TEACHER or PA documentation, treatment plan, and medical decision making and had [id number] time with this patient. I performed all aspects of the MDM as documented. <Taina Swift MD - Last Filed: 11/26/24 06:49> Vital Signs Vital signs: Vital Signs Temperature 98.2 F 11/25/24 18:14 Pulse Rate 72 11/25/24 18:14 Respiratory Rate 16 11/25/24 18:14 Blood Pressure 130/74 11/25/24 18:14 Pulse Oximetry 100 11/25/24 18:14 Temperature 100.3 F H 11/26/24 06:00 Pulse Rate 90 11/26/24 06:00 Respiratory Rate 16 11/26/24 06:00 Blood Pressure 116/53 L 11/26/24 06:00 Pulse Oximetry 98 11/26/24 06:00 Oxygen Delivery Room Air 11/26/24 03:44 Oxygen Flow Rate 2 11/25/24 23:44 <Corina Swanson PA-C - Last Filed: 11/26/24 02:19> Vital Signs Temperature 98.2 F 11/25/24 18:14 Pulse Rate 72 11/25/24 18:14 Respiratory Rate 16 11/25/24 18:14 Blood Pressure 130/74 11/25/24 18:14 Pulse Oximetry 100 11/25/24 18:14 Temperature 100.3 F H 11/26/24 06:00 Pulse Rate 90 11/26/24 06:00 Respiratory Rate 16 11/26/24 06:00 Blood Pressure 116/53 L 11/26/24 06:00 Pulse Oximetry 98 11/26/24 06:00 Oxygen Delivery Room Air 11/26/24 03:44 Oxygen Flow Rate 2 11/25/24 23:44 <Taina Swift MD - Last Filed: 11/26/24 06:49> MDM - Abdominal Pain MDM Narrative Medical decision making narrative: Patient presented to ED with left-sided flank and abdominal pain that began this afternoon, difficulty urinating today. Vital signs stable upon arrival. Afebrile. However patient mildly uncomfortable appearing, in mild acute distress due to pain. Laboratory studies with leukocytosis of 10.2. Chronic mild anemia, consistent with previous records. Kidney function is stable. Lactic acid within normal range at 0.6. Stable electrolytes. UA is consistent with infection, positive nitrate, greater than 100 RBC/WBC, white blood cell clumps, 4+ urine bacteria. Sent for culture. Given Rocephin in the ED. Stat rad CT abdomen pelvis obtained without evidence of ureterolithiasis or other urinary tract obstruction. No other significant abnormalities noted. Suspicious for pyelonephritis type picture. Patient has received several doses of pain medication in the ED and still very uncomfortable on re-evaluation. Began having severe chills, almost rigors. Somewhat ill-appearing. His temperature was rechecked several times and he remains afebrile, but will admit for further evaluation and continued IV antibiotics at this time. Discussed case with Dr. Plascencia, hospitalist, accepted patient for admission. Patient and family in agreement with plan. <Corina Swanson PA-C - Last Filed: 11/26/24 02:19> Medical Records Attestation: I reviewed the patient's medical records. <Corina Swanson PA-C - Last Filed: 11/26/24 02:19> Lab Data Attestation: I reviewed the patient's lab results. <Corina Swanson PA-C - Last Filed: 11/26/24 02:19> Result diagrams: 11/25/24 20:47 11/25/24 20:47 <Corina Swanson PA-C - Last Filed: 11/26/24 02:19> Labs: Lab Results 11/25/24 11/25/24 Range/Units 20:47 22:38 WBC 10.2 H (4.5-10.0) K/mm3 RBC 3.72 L (4.6-6.20) M/mm3 Hgb 11.3 L (14.0-18.0) g/dL Hct 35.4 L (42.0-52.0) % MCV 95.2 (80-100) fl MCH 30.4 (26-34) pg MCHC 31.9 L (32-36) g/dl RDW 14.5 (11.5-14.5) % Plt Count 205 (150-375) k/mm3 MPV 9.9 (7.4-10.4) fl Immature Gran % (Auto) 0.8 H (0-0.5) % Neut % (Auto) 84.8 H (45.5-73.1) % Lymph % (Auto) 6.4 L (18.3-44.2) % [place] % (Auto) 7.6 (2.6-8.5) % Eos % (Auto) 0.1 (0-4.4) % Baso % (Auto) 0.3 (0.2-1.2) % Lymph # (Auto) 0.65 L (0.9-3.2) K/mm3 [place] # (Auto) 0.8 H (0.1-0.6) K/mm3 Eos # (Auto) 0.0 (0-0.3) K/mm3 Baso # (Auto) 0.0 (0.0-0.1) K/mm3 Abs Immat Gran (auto) 0.08 H (0.00-0.031) K/mm3 Absolute Neuts (auto) 8.7 H (1.3-6.7) K/mm3 Absolute Nucleated RBC 0.000 (0.0-0.012) K/mm3 Nucleated RBC % 0.0 (0.0-0.2) % Sodium 136 L (137-145) mmol/L Potassium 4.2 (3.4-5.0) mmol/L Chloride 102 (98-107) mmol/L Carbon Dioxide 24 (22-30) mmol/L Anion Gap 10 (4-12) mmol/L BUN 22 H (9-20) mg/dL Creatinine 1.26 (0.7-1.3) mg/dL Estim Creat Clear Calc 62 ml/min Estimated GFR 56 L (59 - ) Glucose 166 H (65-110) mg/dL Lactic Acid 0.6 L (0.7-2.0) mmol/L Calcium 9.7 (8.4-10.2) mg/dL Total Bilirubin 0.8 (0.2-1.3) mg/dL AST 26 (17-59) U/L ALT 15 (6-50) U/L Alkaline Phosphatase 76 (38-126) U/L Total Protein 7.5 (6.3-8.2) g/dL Albumin 4.4 (3.5-5.1) g/dL Lipase 45 (23-300) U/L Urine Color Brown H (Yellow) Urine Appearance Turbid H (Clear) Urine pH 5.0 (5.0-9.0) Ur Specific [place] 1.022 (1.001-1.035) Urine Protein 3+ H (Negative) mg/dL Urine Glucose (UA) Negative (Negative) mg/dL Urine Ketones Trace H (Negative) mg/dL Ur Blood (Man) 3+ H (Negative) Urine Nitrate Positive H (Negative) Urine Bilirubin 1+ H (Negative) Urine Urobilinogen 1.0 (<2.0) mg/dL Add Ur Microanalysis Yes Leukocyte Esterase Rfl 2+ H (Negative) LOREE/UL Urine RBC >100 H (0-2) /hpf Urine WBC >100 H (0-3) /hpf Urine WBC Clumps Present H (None) /hpf Ur Squamous Epith Cells Few (Few) /hpf Urine Bacteria 4+ H /hpf Urine Casts 6-10 Hyaline Casts 1-2 (None) /lpf <Corina Swanson PA-C - Last Filed: 11/26/24 02:19> Lab Results 11/25/24 11/25/24 Range/Units 20:47 22:38 WBC 10.2 H (4.5-10.0) K/mm3 RBC 3.72 L (4.6-6.20) M/mm3 Hgb 11.3 L (14.0-18.0) g/dL Hct 35.4 L (42.0-52.0) % MCV 95.2 (80-100) fl MCH 30.4 (26-34) pg MCHC 31.9 L (32-36) g/dl RDW 14.5 (11.5-14.5) % Plt Count 205 (150-375) k/mm3 MPV 9.9 (7.4-10.4) fl Immature Gran % (Auto) 0.8 H (0-0.5) % Neut % (Auto) 84.8 H (45.5-73.1) % Lymph % (Auto) 6.4 L (18.3-44.2) % [place] % (Auto) 7.6 (2.6-8.5) % Eos % (Auto) 0.1 (0-4.4) % Baso % (Auto) 0.3 (0.2-1.2) % Lymph # (Auto) 0.65 L (0.9-3.2) K/mm3 [place] # (Auto) 0.8 H (0.1-0.6) K/mm3 Eos # (Auto) 0.0 (0-0.3) K/mm3 Baso # (Auto) 0.0 (0.0-0.1) K/mm3 Abs Immat Gran (auto) 0.08 H (0.00-0.031) K/mm3 Absolute Neuts (auto) 8.7 H (1.3-6.7) K/mm3 Absolute Nucleated RBC 0.000 (0.0-0.012) K/mm3 Nucleated RBC % 0.0 (0.0-0.2) % Sodium 136 L (137-145) mmol/L Potassium 4.2 (3.4-5.0) mmol/L Chloride 102 (98-107) mmol/L Carbon Dioxide 24 (22-30) mmol/L Anion Gap 10 (4-12) mmol/L BUN 22 H (9-20) mg/dL Creatinine 1.26 (0.7-1.3) mg/dL Estim Creat Clear Calc 62 ml/min Estimated GFR 56 L (59 - ) Glucose 166 H (65-110) mg/dL Lactic Acid 0.6 L (0.7-2.0) mmol/L Calcium 9.7 (8.4-10.2) mg/dL Total Bilirubin 0.8 (0.2-1.3) mg/dL AST 26 (17-59) U/L ALT 15 (6-50) U/L Alkaline Phosphatase 76 (38-126) U/L Total Protein 7.5 (6.3-8.2) g/dL Albumin 4.4 (3.5-5.1) g/dL Lipase 45 (23-300) U/L Urine Color Brown H (Yellow) Urine Appearance Turbid H (Clear) Urine pH 5.0 (5.0-9.0) Ur Specific [place] 1.022 (1.001-1.035) Urine Protein 3+ H (Negative) mg/dL Urine Glucose (UA) Negative (Negative) mg/dL Urine Ketones Trace H (Negative) mg/dL Ur Blood (Man) 3+ H (Negative) Urine Nitrate Positive H (Negative) Urine Bilirubin 1+ H (Negative) Urine Urobilinogen 1.0 (<2.0) mg/dL Add Ur Microanalysis Yes Leukocyte Esterase Rfl 2+ H (Negative) LOREE/UL Urine RBC >100 H (0-2) /hpf Urine WBC >100 H (0-3) /hpf Urine WBC Clumps Present H (None) /hpf Ur Squamous Epith Cells Few (Few) /hpf Urine Bacteria 4+ H /hpf Urine Casts 6-10 Hyaline Casts 1-2 (None) /lpf <Taina Swift MD - Last Filed: 11/26/24 06:49> Imaging Data Attestation: I personally reviewed and interpreted this imaging study as follows: < Corina Swanson PA-C - Last Filed: 11/26/24 02:19> Radiologist's impression: STAT RAD CT abd/pelvis: Impression: Marked bilateral increase in retroperitoneal fat, consistent with bilateral retroperitoneal lipomatosis. No urinary tract calculus or obstruction. Calcified granulomas in the liver and spleen. No abnormal fluid or regional inflammatory reaction. No abnormalities noted of the bowel. Heavy coronary artery calcification. <Corina Swanson PA-C - Last Filed: 11/26/24 02:19> Discharge Plan Discharge Clinical Impression: Acute pyelonephritis, Left flank pain <Corina Swanson PA-C - Last Filed: 11/26/24 02:19> Patient Disposition: Still a Patient <LINDA Negro Last Filed: 11/26/24 02:19> Condition: Stable <LINDA Negro Last Filed: 11/26/24 02:19>
[2024-11-26] MEDS: KETOROLAC 30 MG/ML VIAL (*BKC) IV PUSH (01:15)
[2024-11-26] MEDS: SODIUM CHLORIDE 0.9% IV 1,000 ML 999 ML IV CONT (01:16)
[2024-11-26] MEDS: ACETAMINOPHEN 325 MG TABLET 650 MG PO (03:57)
[2024-11-26] MEDS: SODIUM CHLORIDE 0.9% IV 1,000 ML 100 ML IV CONT (03:58)
--- NOTE | 2024-11-26 04:49 | ADMGEN ---
This patient, Sebastian Mendiola, was admitted to [facility] Surg Room 332-02 From the ED with abdominal pain and blood in urine. Patient/family oriented to hospital policies and general routines including ID bracelet, bed and alarms, visiting hours, pain management, procedures, bathroom and other care routines, personal items, smoking policy, room service/diet, and visiting hours. Information on how to activate the Rapid Response Team has been discussed. Patient/Family are encouraged to report perceived risks to care and to ask questions if they do not understand what they are told or what they should do.
[2024-11-26 13:10] LABS: Hematocrit 33.7 % (42.0-52.0); Hemoglobin 10.6 g/dL (14.0-18.0); Immature Granulocyte Percent A 1.2 % (0-0.5); Lymphocytes Absolute Auto 0.21 K/mm3 (0.9-3.2); Mean Corpuscular HGB Conc 31.5 g/dl (32-36); Mean Corpuscular Hemoglobin 30.5 pg (26-34); Mean Corpuscular Volume 97.1 fl (80-100); Nucleated Red Blood Cells Absolute Auto 0.000 K/mm3 (0.0-0.012); Nucleated Red Blood Cells Perc 0.0 % (0.0-0.2); Platelet Count Result 164 k/mm3 (150-375); Red Blood Count 3.47 M/mm3 (4.6-6.20); White Blood Count 14.1 K/mm3 (4.5-10.0)
[2024-11-26 13:24] LABS: INR 1.2; Prothrombin Time 15.2 Seconds (11.1-14.7)
[2024-11-26 13:38] LABS: Anion Gap 10 mmol/L (4-12); Blood Urea Nitrogen 26 mg/dL (9-20); Calcium 8.9 mg/dL (8.4-10.2); Carbon Dioxide 21 mmol/L (22-30); Chloride 104 mmol/L (98-107); Estimated CRCL calculation 38 ml/min; Estimated Glomerular Filt Rate 31; Glucose 132 mg/dL (65-110); Magnesium 1.1 mg/dL (1.6-2.3); Potassium 3.8 mmol/L (3.4-5.0); Sodium 135 mmol/L (137-145)
--- NOTE | 2024-11-26 14:28 | PM.IMHP ---
H&P: HPI History of Present Illness Date/Time: 11/26/24 14:28 Chief Complaint: Abdominal pain Narrative: 74-year-old male with history of morbid obesity with BMI 40, diabetes without insulin dependence, CHARLIE noncompliant with CPAP, arthritis, anemia, hyperlipidemia, peripheral neuropathy, BPH, presents to [facility] on 11/26/24 complaining of left lower abdominal pain radiating to his flank. It started in the past 24 hours. He had some burning upon urination but that has resolved. No fevers, shortness of breath, chills. Of note, he reports he is full after 2-3 bites. He had an EGD on 11/21/2024 to investigate further which demonstrated gastritis only.. Was advised to obtain a CT of abdomen pelvis for further evaluation. He is unable to eat adequately which is causing weight loss, this is been going on for many months. Past day he has not eaten or drinking anything. ----- In the ER found had elevated white count mild at 10.[address] abdomen pelvis demonstrating bilateral increase in retroperitoneal fat, consistent with bilateral retroperitoneal lipomatosis. No obstructive process. He was given ceftriaxone 1 g, Dilaudid, 2 L normal saline bolus, Toradol, Zofran, morphine. Review of Systems Review of Systems: All systems reviewed & are unremarkable except as noted in HPI and below (Subjective) [facility] Past Medical History Medical History Adenomatous colon polyp Early satiety Anemia Dysphagia Weight loss (~11/21/24) Arthritis Frequent urination Shortness of breath CHARLIE (obstructive sleep apnea) Suspected COVID-19 virus infection Diabetes Morbid obesity Hyperlipidemia Diabetic peripheral neuropathy Streptococcal pneumonia w/ respiratory failure 10/2004 Surgical History Surgical History History of tonsillectomy and adenoidectomy age 9 History of knee replacement 05/2014- bilateral knee Family History Family History Father Acute myocardial infarction Mother Hypertension Family history of rheumatoid arthritis Sibling Hypertension Family history of rheumatoid arthritis Family history of malignant neoplasm Family history of kidney disease Unknown Diabetes mellitus Heart disease Hypertension Family history of kidney disease Other Family history of cardiovascular disease Social History Social History Social History: Retired, lives with . Smoking status: Never smoker Second hand tobacco smoke exposure: No Alcohol intake: never Substance use: never Substance use type: does not use Do You Feel Safe in your Home?: Yes Lack of Transportation: No Lack of Food: Never True Current Housing: I Have Housing Concerned About Future Housing: No Difficulty Paying Gas/Electric Bills: No Difficulty Paying for Meds: No Currently Unemployed: No Education: Decline to Answer Difficulty w/ Childcare or Family Care: No Living arrangements: with family Occupation/Education: retired Gender identity (if verbalized by the patient): Male Sexual Orientation (if Verbalized by the Patient): Straight or Heterosexual Spiritual care concerns: No Agree to blood products: Yes Meds Home Medications and Allergies Home Medications ?Medication ?Instructions ?Recorded ?Confirmed ?Type gemfibrozil 600 mg tablet 600 mg PO BID #180 tabs 07/14/23 11/26/24 Rx atorvastatin 40 mg tablet See Rx Instructions .Route 12/31/23 11/26/24 Rx .COMPLEX #90 tabs lorazepam 1 mg tablet 1 mg PO DAILY PRN anxiety #5 tabs 07/06/24 11/26/24 Rx furosemide 20 mg tablet 20 mg PO QAM #180 tabs 07/17/24 11/26/24 Rx solifenacin 10 mg tablet (Vesicare) 10 mg PO DAILY #30 tabs 08/03/24 11/26/24 Rx pioglitazone 45 mg tablet 45 mg PO DAILY #90 tabs 08/14/24 11/26/24 Rx tamsulosin 0.4 mg capsule 0.4 mg PO DAILY #90 caps 09/18/24 11/26/24 Rx metformin 500 mg tablet,extended 1,000 mg (2 x 500 mg) PO BID #120 10/02/24 11/26/24 Rx release 24 hr tabs cyanocobalamin (vitamin B-12) 1,000 mcg PO DAILY #30 caps 10/03/24 11/26/24 Rx 1,000 mcg capsule finasteride 5 mg tablet 5 mg PO DAILY #90 tabs 10/04/24 11/26/24 Rx gabapentin 100 mg capsule 100 mg PO TID #90 caps 11/25/24 11/26/24 Rx Allergies Allergy/AdvReac Type Severity Reaction Status Date / Time No Known Allergies Allergy Verified 11/21/24 11:46 Vital Signs Vital Signs - 24 hr 11/25/24 18:14 11/25/24 21:18 11/25/24 21:32 Temperature 98.2 F Pulse Rate 72 84 95 Respiratory Rate 16 18 26 H Blood Pressure 130/74 137/63 127/46 L Pulse Oximetry 100 99 Oxygen Delivery Oxygen Flow Rate 11/25/24 21:46 11/25/24 22:02 11/25/24 22:16 Temperature Pulse Rate 95 97 89 Respiratory Rate 31 H 18 16 Blood Pressure 129/55 L 133/50 L 132/59 L Pulse Oximetry 97 98 Oxygen Delivery Oxygen Flow Rate 11/25/24 22:32 11/25/24 23:00 11/25/24 23:16 Temperature Pulse Rate 89 93 97 Respiratory Rate 9 L 11 L 22 H Blood Pressure 119/52 L 125/57 L 125/61 Pulse Oximetry 99 100 96 Oxygen Delivery Oxygen Flow Rate 11/25/24 23:31 11/25/24 23:44 11/25/24 23:46 Temperature Pulse Rate 98 104 H Respiratory Rate 19 22 H 20 Blood Pressure 130/75 117/64 Pulse Oximetry 99 84 L 96 Oxygen Delivery Oxygen Flow Rate 2 11/26/24 00:00 11/26/24 00:25 11/26/24 00:30 Temperature Pulse Rate 110 H 105 H 101 H Respiratory Rate 18 24 H 27 H Blood Pressure 114/50 L 122/91 H 126/81 Pulse Oximetry 97 100 100 Oxygen Delivery Oxygen Flow Rate 11/26/24 00:45 11/26/24 01:00 11/26/24 01:15 Temperature Pulse Rate 103 H 107 H 111 H Respiratory Rate 35 H 19 24 H Blood Pressure 125/67 127/74 110/73 Pulse Oximetry 100 98 99 Oxygen Delivery Oxygen Flow Rate 11/26/24 01:30 11/26/24 01:45 11/26/24 02:00 Temperature Pulse Rate 109 H 111 H 109 H Respiratory Rate 26 H 28 H 27 H Blood Pressure 119/62 95/52 L 98/55 L Pulse Oximetry 99 99 99 Oxygen Delivery Oxygen Flow Rate 11/26/24 02:15 11/26/24 02:30 11/26/24 02:45 Temperature Pulse Rate 116 H 124 H 122 H Respiratory Rate 28 H 28 H 24 H Blood Pressure 100/45 L 85/48 L 81/41 L Pulse Oximetry 99 96 91 Oxygen Delivery Oxygen Flow Rate 11/26/24 02:58 11/26/24 03:44 11/26/24 03:57 Temperature 97.5 F L 100.1 F H Pulse Rate Respiratory Rate Blood Pressure Pulse Oximetry Oxygen Delivery Room Air Oxygen Flow Rate 11/26/24 06:00 11/26/24 08:00 11/26/24 08:00 Temperature 100.3 F H Pulse Rate 90 97 Respiratory Rate 16 Blood Pressure 116/53 L Pulse Oximetry 98 Oxygen Delivery Room Air Oxygen Flow Rate 11/26/24 12:00 Temperature Pulse Rate 95 Respiratory Rate Blood Pressure Pulse Oximetry Oxygen Delivery Oxygen Flow Rate Exam Const: General: comfortable and no acute distress HENMT: Mouth: Yes dry mucous membranes Eyes: Pupils: Equal, round and reactive pupils present Neck: Neck: supple Resp: Effort & Inspection: normal respiratory effort Auscultation: clear to auscultation bilaterally Cardio: Rate: regular rate Rhythm: regular rhythm GI: Inspection: non-distended GI Palp: Yes Soft to palpation, No Tenderness to palpation present (GI) and No Guarding due to palpation present (GI) Auscultation: normal bowel sounds : General: Yes bladder normal to palpation Skin: Other: Poor skin turgor Neuro: Motor exam (neuro): 5/5 motor strength present throughout Extrem: General: no edema H&P: Results Labs Labs: Short CBC 11/25/24 11/26/24 Range/Units 20:47 12:49 WBC 10.2 H 14.1 H (4.5-10.0) K/mm3 Hgb 11.3 L 10.6 L (14.0-18.0) g/dL Hct 35.4 L 33.7 L (42.0-52.0) % Plt Count 205 164 (150-375) k/mm3 BMP 11/25/24 11/26/24 20:47 12:49 Sodium 136 L 135 L Potassium 4.2 3.8 Chloride 102 104 Carbon Dioxide 24 21 L BUN 22 H 26 H Creatinine 1.26 2.13 H Glucose 166 H 132 H Calcium 9.7 8.9 Liver Function 11/25/24 Range/Units 20:47 Total Bilirubin 0.8 (0.2-1.3) mg/dL AST 26 (17-59) U/L ALT 15 (6-50) U/L Alkaline Phosphatase 76 (38-126) U/L Albumin 4.4 (3.5-5.1) g/dL Urine 11/25/24 Range/Units 20:47 Urine Color Brown H (Yellow) Urine Appearance Turbid H (Clear) Urine pH 5.0 (5.0-9.0) Ur Specific [place] 1.022 (1.001-1.035) Urine Protein 3+ H (Negative) mg/dL Urine Glucose (UA) Negative (Negative) mg/dL Assessment and Plan Assessment and plan (1) Acute pyelonephritis: Code(s): N10 - Acute pyelonephritis Status: Acute (2) Hypomagnesemia: Code(s): E83.42 - Hypomagnesemia Status: Acute (3) Acute kidney injury: Code(s): N17.9 - Acute kidney failure, unspecified Status: Acute (4) Sepsis: Code(s): A41.9 - Sepsis, unspecified organism Status: Acute Plan 74-year-old male with history of morbid obesity with BMI 40, diabetes without insulin dependence, CHARLIE noncompliant with CPAP, arthritis, anemia, hyperlipidemia, peripheral neuropathy, BPH, presents to [facility] on 11/26/24 complaining of left lower abdominal pain radiating to his flank. It started in the past 24 hours. He had some burning upon urination but that has resolved. No fevers, shortness of breath, chills. Of note, he reports he is full after 2-3 bites. He had an EGD on 11/21/2024 to investigate further which demonstrated gastritis only.. Was advised to obtain a CT of abdomen pelvis for further evaluation. He is unable to eat adequately which is causing weight loss, this is been going on for many months. Past day he has not eaten or drinking anything. ----- In the ER found had elevated white count mild at 10.[address] abdomen pelvis demonstrating bilateral increase in retroperitoneal fat, consistent with bilateral retroperitoneal lipomatosis. No obstructive process. He was given ceftriaxone 1 g, Dilaudid, 2 L normal saline bolus, Toradol, Zofran, morphine. ----- Although the patient had only 1 dose of ceftriaxone 1 g, white count elevating at 14.1 on 11/26/2024. Increase ceftriaxone to 2 g daily. 11/25/2024 urine culture pending, 11/26/2024 blood culture x2, pending. Final radiology interpretation of CT abdomen pelvis pending. Patient reports he is urinating multiple times but very small amounts. After this he did urinate and a bladder scan showed 34 cc postvoid. Check renal ultrasound. On 2nd day of admission he has developed an J CARLOS. He is dehydrated based on dry mucous membranes and his own report. Increase normal saline to 150 cc/hour. Check additional urine studies. Unlikely the retroperitoneal lipomatosis has caused acute kidney injury, acute kidney injury is acute and due to pyelonephritis. Follow-up on renal ultrasound. Replace magnesium. Recheck. Restart FINANCIAL ADVISOR TRAINEE finasteride, tamsulosin. Hold FINANCIAL ADVISOR TRAINEE VESIcare. Hold FINANCIAL ADVISOR TRAINEE furosemide. Of note, patient has complained of early satiety. EGD which demonstrated gastritis. Patient does not complain of symptoms of acid reflux. Considering his diabetes, will recommend gastric emptying study with his hotel clerk in the outpatient setting Hold FINANCIAL ADVISOR TRAINEE gemfibrozil, metformin, pioglitazone. Accu-Cheks a.c. HS with low-dose insulin sliding scale. ----- Patient wishes to be full code. Lives at home with multiple family members. Diabetic diet. Normal saline at 150 cc/hour. SCDs only, intermittent hematuria. Hospitalist [facility] Advance Care Plan I have confirmed that the patient's Advanced Care Plan is present, code status is documented, or surrogate decision maker is listed in patient medical record.: Yes Medication Reconciliation I have utilized all available resources to obtain, update and review the patients current medications (includes all prescriptions, OTC, herbals, cannabis, and nutritional supplements).: Yes
[2024-11-26] MEDS: SODIUM CHLORIDE 0.9% IV 1,000 ML 150 ML IV CONT ×2 (14:43→23:38)
[2024-11-26] MEDS: ATORVASTATIN 40 MG TABLET BY MOUTH (14:49)
[2024-11-26] MEDS: TAMSULOSIN HCL 0.4 MG CAPSULE PO (14:49)
[2024-11-26] MEDS: CYANOCOBALAMIN 1,000 MCG TABLET 1000 MCG PO (14:49)
[2024-11-26] MEDS: FINASTERIDE 5 MG TABLET PO (14:49)
[2024-11-26] MEDS: MAGNESIUM SULF 4 GM/WATER100ML 4 GM/100 ML BAG IVPB (14:52)
[2024-11-26 15:08] LABS: Urine Eos QC 2nd Tech Confirmed
[2024-11-26] MEDS: SODIUM CHLORIDE 0.9% IV 500 ML 1000 ML IV CONT (16:44)
[2024-11-26] MEDS: GABAPENTIN 100 MG CAPSULE PO (16:44)
[2024-11-26 22:06] LABS: Anion Gap 11 mmol/L (4-12); Blood Urea Nitrogen 31 mg/dL (9-20); Calcium 8.7 mg/dL (8.4-10.2); Carbon Dioxide 17 mmol/L (22-30); Chloride 104 mmol/L (98-107); Estimated CRCL calculation 36 ml/min; Estimated Glomerular Filt Rate 29; Glucose 131 mg/dL (65-110); Magnesium 2.1 mg/dL (1.6-2.3); Potassium 4.4 mmol/L (3.4-5.0); Sodium 132 mmol/L (137-145)
[2024-11-26] MEDS: cefTRIAXone 2 GM in SODIUM CHLORIDE 0.9% IV 50 ML 100 ML IVPB (23:40)
[2024-11-27] VITALS (10 sets, daily range): BP systolic 86–109; BP diastolic 44–54; PULSE 84–101; RESP 16–20; TEMP 36.4–37.2; O2SAT 93–100; BMI 40.8
[2024-11-27 06:13] LABS: Hematocrit 30.0 % (42.0-52.0); Hemoglobin 9.6 g/dL (14.0-18.0); Mean Corpuscular HGB Conc 32.0 g/dl (32-36); Mean Corpuscular Hemoglobin 30.6 pg (26-34); Mean Corpuscular Volume 95.5 fl (80-100); Platelet Count Result 157 k/mm3 (150-375); Red Blood Count 3.14 M/mm3 (4.6-6.20); White Blood Count 18.0 K/mm3 (4.5-10.0)
[2024-11-27 06:41] LABS: Anion Gap 11 mmol/L (4-12); Blood Urea Nitrogen 38 mg/dL (9-20); Calcium 8.3 mg/dL (8.4-10.2); Carbon Dioxide 17 mmol/L (22-30); Chloride 104 mmol/L (98-107); Estimated CRCL calculation 34 ml/min; Estimated Glomerular Filt Rate 27; Glucose 115 mg/dL (65-110); Magnesium 2.0 mg/dL (1.6-2.3); Potassium 4.2 mmol/L (3.4-5.0); Sodium 132 mmol/L (137-145)
[2024-11-27 06:56] LABS: Band Neutrophils Percent 10 % (0-6); Basophils Absolute Manual 0.00 K/mm3 (0.0-0.1); Basophils Percent Manual 0 % (0-1); Eosinophils Absolute Manual 0.00 K/mm3 (0.02-0.50); Eosinophils Percent Manual 0 % (0-4); Hypochromasia 1+; Lymphocytes Absolute Manual 0.90 K/mm3 (1.1-4.5); Lymphocytes Percent Manual 5 % (18-44); Monocytes Absolute Manual 0.72 K/mm3 (0.1-0.90); Monocytes Percent Manual 4 % (3-9); Neutrophils Absolute Manual 16.38 K/mm3 (1.3-6.7); Neutrophils Percent Manual 81 % (46-73); Total Cells Counted 100
[2024-11-27 06:57] LABS: Anisocytosis 1+; Schistocytes None Seen
[2024-11-27 07:04] LABS: Procalcitonin 65.2 ng/mL
[2024-11-27] MEDS: SODIUM CHLORIDE 0.9% IV 1,000 ML 150 ML IV CONT ×2 (08:25→17:28)
[2024-11-27] MEDS: CYANOCOBALAMIN 1,000 MCG TABLET 1000 MCG PO (08:25)
[2024-11-27] MEDS: GABAPENTIN 100 MG CAPSULE PO ×3 (08:25→17:21)
[2024-11-27] MEDS: TAMSULOSIN HCL 0.4 MG CAPSULE PO (08:25)
[2024-11-27] MEDS: ATORVASTATIN 40 MG TABLET BY MOUTH (08:25)
[2024-11-27] MEDS: FINASTERIDE 5 MG TABLET PO (08:25)
[2024-11-27] MEDS: MEROPENEM 1 GM in SODIUM CHLORIDE 0.9% IV 100 ML 200 ML IVPB ×2 (10:51→20:28)
[2024-11-27] MEDS: VANCOMYCIN 2,000 MG/NS 500 ML 2,000 MG/500 ML BAG 175 MG IVPB (12:01)
--- NOTE | 2024-11-27 15:44 | PM.IMPN ---
Progress Note: A&P Assessment and Plan (1) Morbid obesity: Code(s): E66.01 - Morbid (severe) obesity due to excess calories Status: Acute (2) Hypomagnesemia: Code(s): E83.42 - Hypomagnesemia Status: Acute (3) Acute kidney injury: Code(s): N17.9 - Acute kidney failure, unspecified Status: Acute (4) Sepsis: Code(s): A41.9 - Sepsis, unspecified organism Status: Acute Plan 74-year-old male with history of morbid obesity with BMI 40, diabetes without insulin dependence, CHARLIE noncompliant with CPAP, arthritis, anemia, hyperlipidemia, peripheral neuropathy, BPH, presents to [facility] on 11/26/24 complaining of left lower abdominal pain radiating to his flank. It started in the past 24 hours. He had some burning upon urination but that has resolved. No fevers, shortness of breath, chills. Of note, he reports he is full after 2-3 bites. He had an EGD on 11/21/2024 to investigate further which demonstrated gastritis only.. Was advised to obtain a CT of abdomen pelvis for further evaluation. He is unable to eat adequately which is causing weight loss, this is been going on for many months. Past day he has not eaten or drinking anything. ----- In the ER found had elevated white count mild at 10.[address] abdomen pelvis demonstrating bilateral increase in retroperitoneal fat, consistent with bilateral retroperitoneal lipomatosis. No obstructive process. He was given ceftriaxone 1 g, Dilaudid, 2 L normal saline bolus, Toradol, Zofran, morphine. ----- Although the patient had only 1 dose of ceftriaxone 1 g, white count elevating at 14.1 on 11/26/2024. Increase ceftriaxone to 2 g daily. 11/25/2024 urine culture pending, 11/26/2024 blood culture x2, pending. Final radiology interpretation of CT abdomen pelvis pending. 11/27/2024: White count again increasing, afebrile. Procalcitonin very high. Will expand antibiotics from ceftriaxone 2 g IV daily to meropenem and vancomycin, renal dosing. Continue to monitor urine and blood cultures. Anemia: Baseline on admission 11.3. Hemoglobin 9.6 on 11/27/2024: Likely dilutional. Continue to trend. Check stool occult. Patient denies black stool or overt bleeding. Patient reports he is urinating multiple times but very small amounts. After this he did urinate and a bladder scan showed 34 cc postvoid. Check renal ultrasound. On 2nd day of admission he has developed an J CARLOS. He is dehydrated based on dry mucous membranes and his own report. Increase normal saline to 150 cc/hour. Check additional urine studies. 11/27/2024: Patient reports very low urine output, will place urinary catheter to have strict monitoring of output. He has increasing serum creatinine, J CARLOS. Consult Nephrology. Currently on 150 cc/hour of normal saline, continue. He has clear lungs but appears to be at risk for fluid overload. Renal ultrasound with left renal calculus and no hydronephrosis. Could be due to ATN/sepsis/contrast nephropathy. 11/27/2024: Magnesium level acceptable status post replacement Restart INTEGRATION SOFTWARE DEVELOPER finasteride, tamsulosin. Hold INTEGRATION SOFTWARE DEVELOPER VESIcare. Hold INTEGRATION SOFTWARE DEVELOPER furosemide. Of note, patient has complained of early satiety. EGD which demonstrated gastritis. Patient does not complain of symptoms of acid reflux. Considering his diabetes, will recommend gastric emptying study with his syrup maker cook in the outpatient setting. 11/27/2024: Multiple days without bowel movement. Slight distention of the abdomen, no pain. Patient reports bloating as well. Give MiraLax x1, start Senokot S1 tab p.o. b.i.d.. Hold INTEGRATION SOFTWARE DEVELOPER gemfibrozil, metformin, pioglitazone. Accu-Cheks a.c. HS with low-dose insulin sliding scale. ----- Patient wishes to be full code. Lives at home with multiple family members. Diabetic diet. Normal saline at 150 cc/hour. SCDs only, start heparin if hb remains stable on 11/27/24 and stool occult negative Subjective Date/time seen: 11/27/24 15:44 Interval history: No major acute overnight events. Patient denies shortness of breath, chest pain, abdominal pain, diarrhea. He reports being constipated for multiple days now, he said he did not eat much prior to admission due to feeling unwell but now feels he should be taking laxatives as he feels bloated. Review of Systems Review of Systems: All systems reviewed & are unremarkable except as noted in HPI and below (Subjective) Exam Const: General: comfortable and no acute distress Other: A&O x3 HENMT: Mouth: Yes moist mucous membranes Eyes: Pupils: Equal, round and reactive pupils present Neck: Neck: supple Resp: Effort & Inspection: normal respiratory effort Auscultation: clear to auscultation bilaterally Cardio: Rate: regular rate Rhythm: regular rhythm GI: GI Palp: Yes Soft to palpation Other: Mild distension, normal bowel sounds, no tenderness to palpation Neuro: Motor exam (neuro): 5/5 motor strength present throughout Extrem: General: no edema Objective Data Vital Signs Vital Signs: Vital Signs - 24 hr 11/26/24 16:00 11/26/24 18:03 11/26/24 20:00 Temperature Pulse Rate 94 Respiratory Rate Blood Pressure 92/50 L Pulse Oximetry Oxygen Delivery Room Air 11/26/24 20:00 11/26/24 22:42 11/27/24 00:00 Temperature 98.9 F Pulse Rate 101 H 95 92 Respiratory Rate 16 Blood Pressure 90/52 L Pulse Oximetry 98 Oxygen Delivery 11/27/24 02:53 11/27/24 04:00 11/27/24 06:39 Temperature 98.1 F 98.7 F Pulse Rate 98 95 96 Respiratory Rate 16 20 Blood Pressure 92/51 L 92/48 L Pulse Oximetry 93 96 Oxygen Delivery 11/27/24 08:00 11/27/24 08:00 11/27/24 12:00 Temperature Pulse Rate 101 H 89 Respiratory Rate Blood Pressure Pulse Oximetry Oxygen Delivery Room Air Intake/Output Intake/Output: Intake & Output 11/24/24 11/25/24 11/26/24 11/27/24 23:59 23:59 23:59 23:59 Intake Total 1050 5550 1780 Output Total 150 400 Balance 1050 5400 1380 Meds/Results Medications: Active Medications Generic Name Dose Route Start Last Admin Trade Name Freq PRN Reason Stop Dose Admin Acetaminophen 650 mg 11/26/24 01:54 11/26/24 03:57 Acetaminophen 325 Mg Tablet PO 650 mg Q4H PRN Administration Mild Pain (1-3) or Fever Atorvastatin Calcium 40 mg 11/26/24 13:55 11/27/24 08:25 Atorvastatin 40 Mg Tablet BY MOUTH 40 mg DAILY DANIELA Administration Cyanocobalamin 1,000 mcg 11/26/24 13:55 11/27/24 08:25 Cyanocobalamin 1,000 Mcg Tablet PO 1,000 mcg DAILY DANIELA Administration Dextrose 12.5 gm 11/26/24 01:54 Dextrose 50% 25 Gm/50 Ml Syringe IV PUSH PRN PRN Hypoglycemia Protocol Finasteride 5 mg 11/26/24 13:55 11/27/24 08:25 Finasteride 5 Mg Tablet PO 5 mg DAILY DANIELA Administration Gabapentin 100 mg 11/26/24 17:00 11/27/24 12:50 Gabapentin 100 Mg Capsule PO 100 mg TID DANIELA Administration Glucose 15 gm 11/26/24 01:54 Glucose Oral Gel 15 Gm Of Glucse In 37.5 Gm Tube PO PRN PRN Hypoglycemia Protocol Sodium Chloride 1,000 mls @ 150 mls/hr 11/26/24 01:55 11/27/24 08:25 Normal Saline Iv IV CONT 150 mls/hr .Q6H40M DANIELA Administration Dextrose 1,000 mls @ 100 mls/hr 11/26/24 01:54 Dextrose 5% 1,000 Ml IVPB PRN PRN Hypoglycemia Protocol Meropenem 1 gm/ Sodium 100 mls @ 200 mls/hr 11/27/24 09:15 11/27/24 10:51 Chloride IVPB 200 mls/hr Q12HR DANIELA Administration Insulin Aspart 2 - 5 units 11/26/24 17:00 11/27/24 11:56 Insulin Aspart (*Bkc) 100 Units/Ml SUB-Q Not Given TIDWM [facility] Protocol Insulin Aspart 1 - 2 units 11/26/24 21:00 11/26/24 21:00 Insulin Aspart (*Bkc) 100 Units/Ml SUB-Q Not Given HS [facility] Protocol Morphine Sulfate 2 mg 11/26/24 01:54 Morphine Sulfate (*Crx) 2 Mg/Ml Inj IV PUSH Q2H PRN Pain Rated 4-6 Ondansetron HCl 4 mg 11/26/24 01:54 Ondansetron Inj 4 Mg/2 Ml Vial IV PUSH Q4H PRN Nausea Tamsulosin HCl 0.4 mg 11/26/24 13:55 11/27/24 08:25 Tamsulosin Hcl 0.4 Mg Capsule PO 0.4 mg DAILY DANIELA Administration Vancomycin HCl 1 each 11/27/24 09:51 Vancomycin For Acute Kidney Injury IVPB PRN PRN Vancomycin Protocol Radiology Results: ITS Impressions Abdomen/Pelvis CT 11/26/24 14:38 IMPRESSION: 1. Probable cystitis. Renal Ultrasound 11/26/24 18:00 Impression: 1. Left renal calculus. No hydronephrosis Chest X-Ray 11/26/24 18:59 Impression: Mild CHF Labs Labs: Laboratory Results - last 24 hr 11/26/24 11/26/24 11/26/24 16:55 21:23 22:45 WBC RBC Hgb Hct MCV MCH MCHC RDW Plt Count MPV Immature Gran % (Auto) Neut % (Auto) Lymph % (Auto) [place] % (Auto) Eos % (Auto) Baso % (Auto) Lymph # (Auto) [place] # (Auto) Eos # (Auto) Baso # (Auto) Abs Immat Gran (auto) Absolute Neuts (auto) Absolute Nucleated RBC Total Counted Neutrophils % (Manual) Band Neutrophils % Lymphocytes % (Manual) Monocytes % (Manual) Eosinophils % (Manual) Basophils % (Manual) Nucleated RBC % Abs Neuts (Manual) Abs Lymphs (Manual) Abs Monocytes (Manual) Absolute Eos (Manual) Abs Basophils (Manual) Platelet Estimate Hypochromasia Anisocytosis Schistocytes Sodium 132 L Potassium 4.4 Chloride 104 Carbon Dioxide 17 L Anion Gap 11 BUN 31 H Creatinine 2.23 H Estim Creat Clear Calc 36 Estimated GFR 29 L Glucose 131 H POC Capillary Glucose 120 H 122 H Calcium 8.7 Magnesium 2.1 Procalcitonin 11/27/24 11/27/24 11/27/24 05:50 07:47 11:47 WBC 18.0 H RBC 3.14 L Hgb 9.6 L Hct 30.0 L MCV 95.5 MCH 30.6 MCHC 32.0 RDW 14.7 H Plt Count 157 MPV 10.9 H Immature Gran % (Auto) Not Reportable Neut % (Auto) Not Reportable Lymph % (Auto) Not Reportable [place] % (Auto) Not Reportable Eos % (Auto) Not Reportable Baso % (Auto) Not Reportable Lymph # (Auto) Not Reportable [place] # (Auto) Not Reportable Eos # (Auto) Not Reportable Baso # (Auto) Not Reportable Abs Immat Gran (auto) Not Reportable Absolute Neuts (auto) Not Reportable Absolute Nucleated RBC Not Reportable Total Counted 100 Neutrophils % (Manual) 81 H Band Neutrophils % 10 H Lymphocytes % (Manual) 5 L Monocytes % (Manual) 4 Eosinophils % (Manual) 0 Basophils % (Manual) 0 Nucleated RBC % Not Reportable Abs Neuts (Manual) 16.38 H Abs Lymphs (Manual) 0.90 L Abs Monocytes (Manual) 0.72 Absolute Eos (Manual) 0.00 L Abs Basophils (Manual) 0.00 Platelet Estimate Slightly decreased Hypochromasia 1+ Anisocytosis 1+ Schistocytes None seen Sodium 132 L Potassium 4.2 Chloride 104 Carbon Dioxide 17 L Anion Gap 11 BUN 38 H Creatinine 2.35 H Estim Creat Clear Calc 34 Estimated GFR 27 L Glucose 115 H POC Capillary Glucose 120 H 116 H Calcium 8.3 L Magnesium 2.0 Procalcitonin 65.2
[2024-11-27] MEDS: SENNA/DOCUSATE SODIUM TABLET 1 TAB PO (17:21)
--- NOTE | 2024-11-27 17:55 | P.CONNP_ITS ---
Assessment and Plan Assessment and plan (1) Acute kidney injury: Code(s): N17.9 - Acute kidney failure, unspecified Status: Acute Assessment and Plan: * normal creatinine ~ 2 months ago (September 2024) * admission creatinine 1.26mg/dl * worsening creatinine noted on 11/26 * suspect multifactorial etiology: * contrast exposure (CT on 11/25) * prerenal factors (poor oral intake) * diuretics prior to admission * relative hypotension (noted 80 - 90s systolic BP in the last 24 hours) * infection/early sepsis (UTI/cystitis) * other(?) * evaluation to date noted: * CT and renal U/S without obstruction * UA suggestive of infection * urine electrolytes prerenal * rare urine eosinophils (finding could be secondary to UTI) * CPK pending * agree with IVFs for now * optimize hemodynamics * follow trend of repeat labs ad UOP I will continue to follow the patient with you while he remains hospitalized and make further recommendations as deemed necessary. Thank you for allowing me to participate in the care of this patient. L History of Present Illness Reason for Consult Consult date: 11/27/24 Reason for consult: acute renal failure Chief Complaint Chief complaint: L pyelonephritis History of Present Illness Narrative: The patient is a 74-year-old male with a past medical history as outlined below who presented to [facility] with complaints of abdominal pain The abdominal pain is localized to his left lower quadrant with associated radiation to his flank. It started about 24 hours ago prior to his presentation to the ER. He also reported some burning upon urination but that has resolved. No fevers, shortness of breath, chills. Of note, he reports he is full after 2- 3 bites. He had an EGD on 11/21/2024 to investigate further which demonstrated gastritis only. He was advised to obtain a CT of abdomen/pelvis for further evaluation of his GI symptoms. He is unable to eat adequately which is causing weight loss which has been going on for many months. Furthermore, onver the past day, he has not eaten or drinking anything of substance. Due to the persistence of these symptoms, he presented to the ER for further assessment. Work-up and evaluation in the ER noted the patient to be hemodynamically stable and afebrile. Routine testing noted an mildly elevated white count at 10.2, stable electrolytes and renal function. His urinalysis was somewhat suggestive of a urinary tract infection. CT of abdomen/pelvis demonstrating bilateral increase in retroperitoneal fat, consistent with bilateral retroperitoneal lipomatosis and no obstructive process. After appropriate cultures were obtained, he was given ceftriaxone 1 g, Dilaudid, 2 L normal saline bolus, Toradol, Zofran, and morphine. He was subsequently admitted to the hospital for further evaluation and therapy. Since admission to the hospital, his renal function/creatinine has deteriorated the last 24-48 hours despite current interventions to date. Renal consultation was requested due to his acute kidney injury/ acute renal failure. From review the patient's records, the patient has a normal baseline creatinine at least 2 months ago and his admission creatinine was 1.26 mg/dL. His questions subsequently worsened 24 hours after admission with arises creatinine 2.1 mg/dL and subsequently a creatinine of 2.35 mg/dL the above study this morning. Furthermore, would appear that his urine output seems to have declined as well. In spite of these issues with regard to his deteriorating kidney function, he seems more concerned about his GI symptoms and they appear to be more prominent of an issue in general. Despite his fluctuating renal function, he has no critical electrolyte abnormalities, volume overload, metabolic acidosis, or evidence of uremia. Currently, the time my evaluation he appears to be in no acute distress. Review of Systems 2 Review of Systems: As per HPI. [facility] Past Medical History Medical History Adenomatous colon polyp Early satiety Anemia Dysphagia Weight loss (~11/21/24) Arthritis Frequent urination Shortness of breath CHARLIE (obstructive sleep apnea) Suspected COVID-19 virus infection Diabetes Morbid obesity Hyperlipidemia Diabetic peripheral neuropathy Streptococcal pneumonia w/ respiratory failure 10/2004 Surgical History Surgical History History of tonsillectomy and adenoidectomy age 9 History of knee replacement 05/2014- bilateral knee Family History Family History Father Acute myocardial infarction Mother Hypertension Family history of rheumatoid arthritis Sibling Hypertension Family history of rheumatoid arthritis Family history of malignant neoplasm Family history of kidney disease Unknown Diabetes mellitus Heart disease Hypertension Family history of kidney disease Other Family history of cardiovascular disease Social History Social History Social History: Retired, lives with . Smoking status: Never smoker Second hand tobacco smoke exposure: No Alcohol intake: never Substance use: never Substance use type: does not use Do You Feel Safe in your Home?: Yes Lack of Transportation: No Lack of Food: Never True Current Housing: I Have Housing Concerned About Future Housing: No Difficulty Paying Gas/Electric Bills: No Difficulty Paying for Meds: No Currently Unemployed: No Education: Decline to Answer Difficulty w/ Childcare or Family Care: No Living arrangements: with family Occupation/Education: retired Gender identity (if verbalized by the patient): Male Sexual Orientation (if Verbalized by the Patient): Straight or Heterosexual Spiritual care concerns: No Agree to blood products: Yes Meds Home Medications and Allergies Home Medications ?Medication ?Instructions ?Recorded ?Confirmed ?Type gemfibrozil 600 mg tablet 600 mg PO BID #180 tabs 05/04/0712/04/24 Rx atorvastatin 40 mg tablet See Rx Instructions .Route 1 12/04/24 Rx .COMPLEX #90 tabs furosemide 20 mg tablet 20 mg PO QAM #180 tabs 07/1712/04/24 Rx solifenacin 10 mg tablet (Vesicare) 10 mg PO DAILY #30 tabs 08/03/24 12/04/24 Rx pioglitazone 45 mg tablet 45 mg PO DAILY #90 tabs 06/05/0912/04/24 Rx tamsulosin 0.4 mg capsule 0.4 mg PO DAILY #90 caps 10/0612/04/24 Rx metformin 500 mg tablet,extended 1,000 mg (2 x 500 mg) PO BID #120 10/02/24 12/04/24 Rx release 24 hr tabs cyanocobalamin (vitamin B-12) 1,000 mcg PO DAILY #30 c aps 10/03/24 12/04/24 Rx 1,000 mcg capsule finasteride 5 mg tablet 5 mg PO DAILY #90 tabs 10/0412/04/24 Rx gabapentin 100 mg capsule 100 mg PO TID #90 caps 11/2512/04/24 Rx magnesium oxide 500 mg capsule 500 mg PO DAILY #7 caps 12/08/24 Rx potassium chloride 10 mEq 10 meq PO DAILY K+ replaceme nt 12/12/24 Rx tablet,extended release (Klor-Con) while on increased furosemide. #30 tabs Allergies Allergy/AdvReac Type Severity Reaction Status Date / Time No Known Allergies Allergy Verified 12/04/24 15:48 Vital Signs Vital Signs Temp Pulse Resp BP Pulse Ox O2 Del Method 11/27/24 16:00 88 11/27/24 14:00 97.6 F 89 18 86/44 L 100 11/27/24 12:00 89 11/27/24 08:00 101 H 11/27/24 08:00 Room Air 11/27/24 06:39 98.7 F 96 20 92/48 L 96 11/27/24 04:00 95 11/27/24 02:53 98.1 F 98 16 92/51 L 93 Exam 2 Narrative: GENERAL APPEARANCE: elderly but well developed well nourished male in no acute distress HEENT: normocephalic, atraumatic, normal conjunctiva and sclera, nares patient NECK: no lymphadenopathy, thyromegaly, or JVD MOUTH: normal lips, teeth, and gums CARDIOVASCULAR: RRR, normal S1 and S2, no rub RESPIRATORY: clear to auscultation bilaterally ABDOMEN: obese but soft, nontender, nondistended, positive bowel sounds present EXTREMITIES: no evidence of cyanosis, clubbing, or edema NEUROLOGICAL: alert and oriented x 3; CN II - XII intact bilaterally; no focal deficits noted Results Lab Results 11/30/24 06:54 11/30/24 06:54 Lab results: Most recent lab results Calcium 8.3 mg/dL (8.4-10.2) L 11/27/24 05:50 Magnesium 2.0 mg/dL (1.6-2.3) 11/27/24 05:50 Urine Creatinine 209.9 mg/dL 11/26/24 14:42
[2024-11-27 20:00] LABS: MRSA (PCR) NOT DETECTED (NOT DETECTE)
[2024-11-28] VITALS (9 sets, daily range): BP systolic 114–125; BP diastolic 58–70; PULSE 69–94; RESP 16–18; TEMP 36.4–36.7; O2SAT 97–100
[2024-11-28] MEDS: SODIUM CHLORIDE 0.9% IV 1,000 ML 150 ML IV CONT ×4 (00:53→22:10)
[2024-11-28 06:19] LABS: Hematocrit 28.1 % (42.0-52.0); Hemoglobin 9.0 g/dL (14.0-18.0); Immature Granulocyte Percent A 8.5 % (0-0.5); Lymphocytes Absolute Auto 0.68 K/mm3 (0.9-3.2); Mean Corpuscular HGB Conc 32.0 g/dl (32-36); Mean Corpuscular Hemoglobin 30.2 pg (26-34); Mean Corpuscular Volume 94.3 fl (80-100); Nucleated Red Blood Cells Absolute Auto 0.000 K/mm3 (0.0-0.012); Nucleated Red Blood Cells Perc 0.0 % (0.0-0.2); Platelet Count Result 151 k/mm3 (150-375); Red Blood Count 2.98 M/mm3 (4.6-6.20); White Blood Count 14.2 K/mm3 (4.5-10.0)
--- NOTE | 2024-11-28 06:40 | P.CDI_ITS ---
<Statement entered by Yue Terrell MD - 11/28/24 07:55> This documentation has been reviewed and approved. moderate protein calorie malnutrition CDI Query Clarification Request BMI: 40.9 Nutritional Diagnostic Statement: Please refer to the comprehensive nutrition assessment for further information. If you agree with diagnosis of Moderate protein calorie malnutrition related to loss of appetite, altered GI function as evidenced by weight loss 11%/5 months; intakes <75% needs >1 month; mild muscle wasting to temporalis. Please specify severity if known: * Mild * Moderate * Severe * Other/Unknown
[2024-11-28 06:46] LABS: Alanine Aminotransferase 17 U/L (6-50); Albumin Level 3.0 g/dL (3.5-5.1); Alkaline Phosphatase 84 U/L (38-126); Anion Gap 6 mmol/L (4-12); Aspartate Amino Transferase 35 U/L (17-59); Bilirubin,Total 0.3 mg/dL (0.2-1.3); Blood Urea Nitrogen 41 mg/dL (9-20); Calcium 8.4 mg/dL (8.4-10.2); Carbon Dioxide 18 mmol/L (22-30); Chloride 107 mmol/L (98-107); Creatine Kinase 129 U/L (55-170); Estimated CRCL calculation 41 ml/min; Estimated Glomerular Filt Rate 34; Glucose 99 mg/dL (65-110); Magnesium 2.0 mg/dL (1.6-2.3); Potassium 3.8 mmol/L (3.4-5.0); Sodium 131 mmol/L (137-145); Total Protein 5.7 g/dL (6.3-8.2)
[2024-11-28 07:00] LABS: Procalcitonin 28.1 ng/mL
[2024-11-28] MEDS: MEROPENEM 1 GM in SODIUM CHLORIDE 0.9% IV 100 ML 200 ML IVPB ×2 (08:15→22:09)
[2024-11-28] MEDS: SENNA/DOCUSATE SODIUM TABLET 1 TAB PO ×2 (08:16→17:00)
[2024-11-28] MEDS: TAMSULOSIN HCL 0.4 MG CAPSULE PO (08:16)
[2024-11-28] MEDS: GABAPENTIN 100 MG CAPSULE PO ×3 (08:16→17:00)
[2024-11-28] MEDS: FINASTERIDE 5 MG TABLET PO (09:29)
[2024-11-28] MEDS: CYANOCOBALAMIN 1,000 MCG TABLET 1000 MCG PO (09:29)
[2024-11-28] MEDS: ATORVASTATIN 40 MG TABLET BY MOUTH (09:29)
--- NOTE | 2024-11-28 10:12 | P.PNNP_ITS ---
Progress Note: A&P Assessment and Plan (1) Acute kidney injury: Code(s): N17.9 - Acute kidney failure, unspecified Status: Acute Assessment and Plan: * slow improvement noted * normal creatinine ~ 2 months ago (September 2024) * admission creatinine 1.26mg/dl * worsening creatinine noted on 11/26 * suspect multifactorial etiology: * contrast exposure (CT on 11/25) * prerenal factors (poor oral intake) * diuretics prior to admission * relative hypotension (noted 80 - 90s systolic BP * infection/early sepsis (UTI/cystitis) * other(?) * evaluation to date noted: * CT and renal U/S without obstruction * UA suggestive of infection * urine electrolytes prerenal * rare urine eosinophils (finding could be secondary to UTI) * CPK pending * continue IVFs for now * optimize hemodynamics * follow trend of repeat labs ad UOP (2) Sepsis: Code(s): A41.9 - Sepsis, unspecified organism Status: Acute Assessment and Plan: * possibly due to #2 * follow culture data * continue antibiotics * follow trend of hemodynamics (3) Urinary tract infection: Qualifiers: Hematuria presence: with hematuria Urinary tract infection type: site unspecified Qualified Code(s): N39.0 - Urinary tract infection, site not specified; R31.9 - Hematuria, unspecified Code(s): N39.0 - Urinary tract infection, site not specified Status: Acute Assessment and Plan: * admission UA highly suggestive * follow culture data * on antibiotics (4) Anemia: Code(s): D64.9 - Anemia, unspecified Status: Acute Assessment and Plan: * due to acute illness and J CARLOS * no need for MANDA * follow trend of H/H (5) BPH (benign prostatic hyperplasia): Code(s): N40.0 - Benign prostatic hyperplasia without lower urinary tract symptoms Status: Chronic Assessment and Plan: * on finasteride and tamulosin * walton catheter inplace at this time * voiding trial in the next day or to (depending on trend of creatinine) (6) Type 2 diabetes mellitus with hyperglycemia: Qualifiers: Diabetes mellitus penitentiary insulin use: without termite renewal inspector use Q ualified Code(s): E11.65 - Type 2 diabetes mellitus with hyperglycemia Code(s): E11.65 - Type 2 diabetes mellitus with hyperglycemia Status: Chronic Assessment and Plan: * follow accu-cheks * glycemic control per hospitalist Will continue to follow. L Subjective Date/time seen: 11/28/24 10:12 Interval history: Follow-up for acute kidney injury/acute renal failure. Renal function/creatinine doing better with reasonable urine output with IVF and better hemodyanmics; some overall improvement in symptoms noted but still reports ongoing constipation for the past few days; no other issues/events overnight or earlier this morning. Exam 2 Narrative: General: elderly but WD/WN male in NAD Heart: normal S1 and S2; no rub Lungs: clear anteriorly Abdomen: obese but soft, nontender, nondistended, positive bowel sounds Extremities: no cyanosis or clubbing; no edema Skin: warm and dry Objective Data Vital Signs Vital Signs: Vital Signs Temp Pulse Resp BP Pulse Ox O2 Del Method 11/28/24 12:00 69 11/28/24 08:00 86 11/28/24 08:00 Room Air 11/28/24 06:00 98.1 F 94 18 125/67 97 11/28/24 04:00 89 11/28/24 00:00 85 11/27/24 23:33 98.9 F 84 16 109/54 L 97 11/27/24 20:00 88 11/27/24 20:00 Room Air 11/27/24 16:00 88 Intake/Output Intake/Output: Intake & Output 11/25/24 11/26/24 11/27/24 11/28/24 23:59 23:59 23:59 23:59 Intake Total 1050 5550 4320 3137 Output Total 947 242 4999 Balance 1050 5400 3920 1437 Meds/Results Medications: Active Medications Generic Name Dose Route Start Last Admin Trade Name Freq PRN Reason Stop Dose Admin Acetaminophen 650 mg 11/26/24 01:54 11/26/24 03:57 Acetaminophen 325 Mg Tablet PO 650 mg Q4H PRN Administration Mild Pain (1-3) or Fever Atorvastatin Calcium 40 mg 11/26/24 13:55 11/28/24 09:29 Atorvastatin 40 Mg Tablet BY MOUTH 40 mg DAILY DANIELA Administration Cyanocobalamin 1,000 mcg 11/26/24 13:55 11/28/24 09:29 Cyanocobalamin 1,000 Mcg Tablet PO 1,000 mcg DAILY DANIELA Administration Dextrose 12.5 gm 11/26/24 01:54 Dextrose 50% 25 Gm/50 Ml Syringe IV PUSH PRN PRN Hypoglycemia Protocol Finasteride 5 mg 11/26/24 13:55 11/28/24 09:29 Finasteride 5 Mg Tablet PO 5 mg DAILY DANIELA Administration Gabapentin 100 mg 11/26/24 17:00 11/28/24 13:09 Gabapentin 100 Mg Capsule PO 100 mg TID DANIELA Administration Glucose 15 gm 11/26/24 01:54 Glucose Oral Gel 15 Gm Of Glucse In 37.5 Gm Tube PO PRN PRN Hypoglycemia Protocol Sodium Chloride 1,000 mls @ 150 mls/hr 11/26/24 01:55 11/28/24 08:14 Normal Saline Iv IV CONT 150 mls/hr .Q6H40M DANIELA Administration Dextrose 1,000 mls @ 100 mls/hr 11/26/24 01:54 Dextrose 5% 1,000 Ml IVPB PRN PRN Hypoglycemia Protocol Meropenem 1 gm/ Sodium 100 mls @ 200 mls/hr 11/27/24 09:15 11/28/24 08:15 Chloride IVPB 200 mls/hr Q12HR DANIELA Administration Vancomycin HCl 2,000 mg in 500 mls @ 250 mls/hr 11/28/24 12:24 11/28/24 13:09 Vancomycin 2,000 Mg/Ns 500 Ml IVPB 11/28/24 14:23 150 mls/hr ONCE ONE Administration Insulin Aspart 2 - 5 units 11/26/24 17:00 11/28/24 11:25 Insulin Aspart (*Bkc) 100 Units/Ml SUB-Q Not Given TIDWM [facility] Protocol Insulin Aspart 1 - 2 units 11/26/24 21:00 11/27/24 23:15 Insulin Aspart (*Bkc) 100 Units/Ml SUB-Q Not Given HS [facility] Protocol Morphine Sulfate 2 mg 11/26/24 01:54 Morphine Sulfate (*Crx) 2 Mg/Ml Inj IV PUSH Q2H PRN Pain Rated 4-6 Ondansetron HCl 4 mg 11/26/24 01:54 Ondansetron Inj 4 Mg/2 Ml Vial IV PUSH Q4H PRN Nausea Polyethylene Glycol 17 gm 11/27/24 15:45 11/28/24 08:16 Polyethylene Glycol 3350 17 Gm Powd.Pack PO 17 gm QAM DANIELA Administration Senna/Docusate Sodium 1 tab 11/27/24 17:00 11/28/24 08:16 Senna/Docusate Sodium Tablet PO 1 tab BID DANIELA Administration Tamsulosin HCl 0.4 mg 11/26/24 13:55 11/28/24 08:16 Tamsulosin Hcl 0.4 Mg Capsule PO 0.4 mg DAILY DANIELA Administration Vancomycin HCl 1 each 11/27/24 09:51 Vancomycin For Acute Kidney Injury IVPB PRN PRN Vancomycin Protocol Radiology Results: ITS Impressions Abdomen/Pelvis CT 11/26/24 14:38 IMPRESSION: 1. Probable cystitis. Renal Ultrasound 11/26/24 18:00 Impression: 1. Left renal calculus. No hydronephrosis Chest X-Ray 11/26/24 18:59 Impression: Mild CHF Labs Labs: Laboratory Tests 11/28/24 05:35 11/28/24 05:35 Calcium 8.4 Magnesium 2.0 Total Bilirubin 0.3 AST 35 ALT 17 Alkaline Phosphatase 84 Total Creatine Kinase 129 Total Protein 5.7 L Albumin 3.0 L Microbiology 11/26/24 06:15 Blood Blood Culture - Preliminary 11/26/24 06:15 Blood Blood Culture - Preliminary
[2024-11-28 11:09] LABS: Chloride, Urine 26 mmol/L (Not Estab.)
[2024-11-28] MEDS: VANCOMYCIN 2,000 MG/NS 500 ML 2,000 MG/500 ML BAG 150 MG IVPB (13:09)
--- NOTE | 2024-11-28 15:39 | PM.IMPN ---
Progress Note: A&P Assessment and Plan (1) Morbid obesity: Code(s): E66.01 - Morbid (severe) obesity due to excess calories Status: Acute (2) Hypomagnesemia: Code(s): E83.42 - Hypomagnesemia Status: Acute (3) Acute kidney injury: Code(s): N17.9 - Acute kidney failure, unspecified Status: Acute (4) Sepsis: Code(s): A41.9 - Sepsis, unspecified organism Status: Acute Plan 74-year-old male with history of morbid obesity with BMI 40, diabetes without insulin dependence, CHARLIE noncompliant with CPAP, arthritis, anemia, hyperlipidemia, peripheral neuropathy, BPH, presents to [facility] on 11/26/24 complaining of left lower abdominal pain radiating to his flank. It started in the past 24 hours. He had some burning upon urination but that has resolved. No fevers, shortness of breath, chills. Of note, he reports he is full after 2-3 bites. He had an EGD on 11/21/2024 to investigate further which demonstrated gastritis only.. Was advised to obtain a CT of abdomen pelvis for further evaluation. He is unable to eat adequately which is causing weight loss, this is been going on for many months. Past day he has not eaten or drinking anything. ----- In the ER found had elevated white count mild at 10.[address] abdomen pelvis demonstrating bilateral increase in retroperitoneal fat, consistent with bilateral retroperitoneal lipomatosis. No obstructive process. He was given ceftriaxone 1 g, Dilaudid, 2 L normal saline bolus, Toradol, Zofran, morphine. ----- Although the patient had only 1 dose of ceftriaxone 1 g, white count elevating at 14.1 on 11/26/2024. Increase ceftriaxone to 2 g daily. 11/25/2024 urine culture pending, 11/26/2024 blood culture x2, pending. Final radiology interpretation of CT abdomen pelvis pending. 11/27/2024: White count again increasing, afebrile. Procalcitonin very high. Will expand antibiotics from ceftriaxone 2 g IV daily to meropenem and vancomycin, renal dosing. Continue to monitor urine and blood cultures. 11/28/2024: WBC improved, afebrile. Blood culture and urine culture pending still. Anemia: Baseline on admission 11.3. Hemoglobin 9.6 on 11/27/2024: Likely dilutional. Continue to trend. Check stool occult. Patient denies black stool or overt bleeding. Patient reports he is urinating multiple times but very small amounts. After this he did urinate and a bladder scan showed 34 cc postvoid. Check renal ultrasound. On 2nd day of admission he has developed an J CARLOS. He is dehydrated based on dry mucous membranes and his own report. Increase normal saline to 150 cc/hour. Check additional urine studies. 11/27/2024: Patient reports very low urine output, will place urinary catheter to have strict monitoring of output. He has increasing serum creatinine, J CARLOS. Consult Nephrology. Currently on 150 cc/hour of normal saline, continue. Serum creatinine improved on 11/28/2024, continue to monitor, fluids per Nephrology. 11/27/2024: Magnesium level acceptable status post replacement Restart [employer]IST[employer] finasteride, tamsulosin. Hold [employer]ODUCTION ASSISTANT VESIcare. Hold [employer] ASSIST[employer] furosemide. Of note, patient has complained of early satiety. EGD which demonstrated gastritis. Patient does not complain of symptoms of acid reflux. Considering his diabetes, will recommend gastric emptying study with his chief creative officer in the outpatient setting. 11/27/2024: Multiple days without bowel movement. Slight distention of the abdomen, no pain. Patient reports bloating as well. Give MiraLax x1, start Senokot S1 tab p.o. b.i.d.. 11/28/2024: Still no bowel movement. Continue MiraLax 17 g p.o. q.a.m., continue Senokot S1 tab p.o. b.i.d.. Give 1 time bisacodyl suppository. Hold [employer] ASSISTANT gemfibrozil, metformin, pioglitazone. Accu-Cheks a.c. HS with low-dose insulin sliding scale. ----- Patient wishes to be full code. Lives at home with multiple family members. Diabetic diet. Normal saline at 150 cc/hour. SCDs only, start heparin if hb remains stable on 11/27/24 and stool occult negative Consult PT/OT for weakness. Subjective Date/time seen: 11/28/24 15:39 Interval history: Patient reports he is feeling better, not as weak. No shortness of breath, abdominal pain, cough, diarrhea. No bowel movement for 4 days now. Review of Systems Review of Systems: All systems reviewed & are unremarkable except as noted in HPI and below (Subjective) Exam Const: General: comfortable and no acute distress Other: A&O x3 HENMT: Mouth: Yes moist mucous membranes Eyes: Pupils: Equal, round and reactive pupils present Neck: Neck: supple Resp: Effort & Inspection: normal respiratory effort Auscultation: clear to auscultation bilaterally Cardio: Rate: regular rate Rhythm: regular rhythm GI: Inspection: non-distended GI Palp: Yes Soft to palpation and No Guarding due to palpation present (GI) Auscultation: normal bowel sounds Neuro: Motor exam (neuro): 5/5 motor strength present throughout Extrem: General: no edema Objective Data Vital Signs Vital Signs: Vital Signs - 24 hr 11/27/24 16:00 11/27/24 20:00 11/27/24 20:00 Temperature Pulse Rate 88 88 Respiratory Rate Blood Pressure Pulse Oximetry Oxygen Delivery Room Air 11/27/24 23:33 11/28/24 00:00 11/28/24 04:00 Temperature 98.9 F Pulse Rate 84 85 89 Respiratory Rate 16 Blood Pressure 109/54 L Pulse Oximetry 97 Oxygen Delivery 11/28/24 06:00 11/28/24 08:00 11/28/24 08:00 Temperature 98.1 F Pulse Rate 94 86 Respiratory Rate 18 Blood Pressure 125/67 Pulse Oximetry 97 Oxygen Delivery Room Air 11/28/24 12:00 11/28/24 14:00 Temperature 98.1 F Pulse Rate 69 84 Respiratory Rate 18 Blood Pressure 114/70 Pulse Oximetry 100 Oxygen Delivery Intake/Output Intake/Output: Intake & Output 11/25/24 11/26/24 11/27/24 11/28/24 23:59 23:59 23:59 23:59 Intake Total 1050 5550 4320 3137 Output Total 284 369 8027 Balance 1050 5400 3920 1437 Meds/Results Medications: Active Medications Generic Name Dose Route Start Last Admin Trade Name Freq PRN Reason Stop Dose Admin Acetaminophen 650 mg 11/26/24 01:54 11/26/24 03:57 Acetaminophen 325 Mg Tablet PO 650 mg Q4H PRN Administration Mild Pain (1-3) or Fever Atorvastatin Calcium 40 mg 11/26/24 13:55 11/28/24 09:29 Atorvastatin 40 Mg Tablet BY MOUTH 40 mg DAILY DANIELA Administration Cyanocobalamin 1,000 mcg 11/26/24 13:55 11/28/24 09:29 Cyanocobalamin 1,000 Mcg Tablet PO 1,000 mcg DAILY DANIELA Administration Dextrose 12.5 gm 11/26/24 01:54 Dextrose 50% 25 Gm/50 Ml Syringe IV PUSH PRN PRN Hypoglycemia Protocol Finasteride 5 mg 11/26/24 13:55 11/28/24 09:29 Finasteride 5 Mg Tablet PO 5 mg DAILY DANIELA Administration Gabapentin 100 mg 11/26/24 17:00 11/28/24 13:09 Gabapentin 100 Mg Capsule PO 100 mg TID DANIELA Administration Glucose 15 gm 11/26/24 01:54 Glucose Oral Gel 15 Gm Of Glucse In 37.5 Gm Tube PO PRN PRN Hypoglycemia Protocol Sodium Chloride 1,000 mls @ 150 mls/hr 11/26/24 01:55 11/28/24 08:14 Normal Saline Iv IV CONT 150 mls/hr .Q6H40M DANIELA Administration Dextrose 1,000 mls @ 100 mls/hr 11/26/24 01:54 Dextrose 5% 1,000 Ml IVPB PRN PRN Hypoglycemia Protocol Meropenem 1 gm/ Sodium 100 mls @ 200 mls/hr 11/27/24 09:15 11/28/24 08:15 Chloride IVPB 200 mls/hr Q12HR DANIELA Administration Insulin Aspart 2 - 5 units 11/26/24 17:00 11/28/24 11:25 Insulin Aspart (*Bkc) 100 Units/Ml SUB-Q Not Given TIDWM [facility] Protocol Insulin Aspart 1 - 2 units 11/26/24 21:00 11/27/24 23:15 Insulin Aspart (*Bkc) 100 Units/Ml SUB-Q Not Given HS [facility] Protocol Morphine Sulfate 2 mg 11/26/24 01:54 Morphine Sulfate (*Crx) 2 Mg/Ml Inj IV PUSH Q2H PRN Pain Rated 4-6 Ondansetron HCl 4 mg 11/26/24 01:54 Ondansetron Inj 4 Mg/2 Ml Vial IV PUSH Q4H PRN Nausea Polyethylene Glycol 17 gm 11/27/24 15:45 11/28/24 08:16 Polyethylene Glycol 3350 17 Gm Powd.Pack PO 17 gm QAM DANIELA Administration Senna/Docusate Sodium 1 tab 11/27/24 17:00 11/28/24 08:16 Senna/Docusate Sodium Tablet PO 1 tab BID DANIELA Administration Tamsulosin HCl 0.4 mg 11/26/24 13:55 11/28/24 08:16 Tamsulosin Hcl 0.4 Mg Capsule PO 0.4 mg DAILY DANIELA Administration Vancomycin HCl 1 each 11/27/24 09:51 Vancomycin For Acute Kidney Injury IVPB PRN PRN Vancomycin Protocol Radiology Results: ITS Impressions Abdomen/Pelvis CT 11/26/24 14:38 IMPRESSION: 1. Probable cystitis. Renal Ultrasound 11/26/24 18:00 Impression: 1. Left renal calculus. No hydronephrosis Chest X-Ray 11/26/24 18:59 Impression: Mild CHF Labs Labs: Laboratory Results - last 24 hr 11/26/24 11/27/24 11/27/24 14:42 17:25 18:34 WBC RBC Hgb Hct MCV MCH MCHC RDW Plt Count MPV Immature Gran % (Auto) Neut % (Auto) Lymph % (Auto) [place] % (Auto) Eos % (Auto) Baso % (Auto) Lymph # (Auto) [place] # (Auto) Eos # (Auto) Baso # (Auto) Abs Immat Gran (auto) Absolute Neuts (auto) Absolute Nucleated RBC Nucleated RBC % Sodium Potassium Chloride Carbon Dioxide Anion Gap BUN Creatinine Estim Creat Clear Calc Estimated GFR Glucose POC Capillary Glucose 97 Lactic Acid Calcium Magnesium Total Bilirubin AST ALT Alkaline Phosphatase Total Creatine Kinase Total Protein Albumin Procalcitonin Urine Chloride 26 Nasal MRSA (PCR) Not detected Random Vancomycin 11/27/24 11/28/24 11/28/24 23:13 05:34 05:35 WBC 14.2 H RBC 2.98 L Hgb 9.0 L Hct 28.1 L MCV 94.3 MCH 30.2 MCHC 32.0 RDW 14.7 H Plt Count 151 MPV 11.2 H Immature Gran % (Auto) 8.5 H Neut % (Auto) 77.0 H Lymph % (Auto) 4.8 L [place] % (Auto) 6.2 Eos % (Auto) 3.2 Baso % (Auto) 0.3 Lymph # (Auto) 0.68 L [place] # (Auto) 0.9 H Eos # (Auto) 0.5 H Baso # (Auto) 0.0 Abs Immat Gran (auto) 1.21 H Absolute Neuts (auto) 10.9 H Absolute Nucleated RBC 0.000 Nucleated RBC % 0.0 Sodium 131 L Potassium 3.8 Chloride 107 Carbon Dioxide 18 L Anion Gap 6 BUN 41 H Creatinine 1.95 H Estim Creat Clear Calc 41 Estimated GFR 34 L Glucose 99 POC Capillary Glucose 120 H Lactic Acid 0.5 L Calcium 8.4 Magnesium 2.0 Total Bilirubin 0.3 AST 35 ALT 17 Alkaline Phosphatase 84 Total Creatine Kinase 129 Total Protein 5.7 L Albumin 3.0 L Procalcitonin Urine Chloride Nasal MRSA (PCR) Random Vancomycin 11/28/24 11/28/24 11/28/24 05:36 07:40 10:58 WBC RBC Hgb Hct MCV MCH MCHC RDW Plt Count MPV Immature Gran % (Auto) Neut % (Auto) Lymph % (Auto) [place] % (Auto) Eos % (Auto) Baso % (Auto) Lymph # (Auto) [place] # (Auto) Eos # (Auto) Baso # (Auto) Abs Immat Gran (auto) Absolute Neuts (auto) Absolute Nucleated RBC Nucleated RBC % Sodium Potassium Chloride Carbon Dioxide Anion Gap BUN Creatinine Estim Creat Clear Calc Estimated GFR Glucose POC Capillary Glucose 108 H Lactic Acid Calcium Magnesium Total Bilirubin AST ALT Alkaline Phosphatase Total Creatine Kinase Total Protein Albumin Procalcitonin 28.1 Urine Chloride Nasal MRSA (PCR) Random Vancomycin 10.2 11/28/24 11:24 WBC RBC Hgb Hct MCV MCH MCHC RDW Plt Count MPV Immature Gran % (Auto) Neut % (Auto) Lymph % (Auto) [place] % (Auto) Eos % (Auto) Baso % (Auto) Lymph # (Auto) [place] # (Auto) Eos # (Auto) Baso # (Auto) Abs Immat Gran (auto) Absolute Neuts (auto) Absolute Nucleated RBC Nucleated RBC % Sodium Potassium Chloride Carbon Dioxide Anion Gap BUN Creatinine Estim Creat Clear Calc Estimated GFR Glucose POC Capillary Glucose 114 H Lactic Acid Calcium Magnesium Total Bilirubin AST ALT Alkaline Phosphatase Total Creatine Kinase Total Protein Albumin Procalcitonin Urine Chloride Nasal MRSA (PCR) Random Vancomycin
[2024-11-28] MEDS: BISACODYL 10 MG SUPPOSITORY RECTAL (16:59)
[2024-11-29] VITALS (9 sets, daily range): BP systolic 105–121; BP diastolic 53–59; PULSE 74–90; RESP 16–20; TEMP 36.2–36.6; O2SAT 98–100
[2024-11-29] MEDS: SODIUM CHLORIDE 0.9% IV 1,000 ML 150 ML IV CONT ×2 (01:28→09:32)
[2024-11-29 06:33] LABS: Estimated CRCL calculation 64 ml/min; Estimated Glomerular Filt Rate 57
[2024-11-29 06:56] LABS: IFOB Positive Control Positive; Immunochemical Fecal Occult Bl Negative (N)
[2024-11-29 07:16] LABS: Hematocrit 30.2 % (42.0-52.0); Hemoglobin 9.7 g/dL (14.0-18.0); Immature Granulocyte Percent A 3.1 % (0-0.5); Lymphocytes Absolute Auto 0.88 K/mm3 (0.9-3.2); Mean Corpuscular HGB Conc 32.1 g/dl (32-36); Mean Corpuscular Hemoglobin 30.6 pg (26-34); Mean Corpuscular Volume 95.3 fl (80-100); Nucleated Red Blood Cells Absolute Auto 0.000 K/mm3 (0.0-0.012); Nucleated Red Blood Cells Perc 0.0 % (0.0-0.2); Platelet Count Result 170 k/mm3 (150-375); Red Blood Count 3.17 M/mm3 (4.6-6.20); White Blood Count 12.5 K/mm3 (4.5-10.0)
[2024-11-29 07:20] LABS: Alanine Aminotransferase 29 U/L (6-50); Albumin Level 3.2 g/dL (3.5-5.1); Alkaline Phosphatase 95 U/L (38-126); Anion Gap 8 mmol/L (4-12); Aspartate Amino Transferase 55 U/L (17-59); Bilirubin,Total 0.4 mg/dL (0.2-1.3); Blood Urea Nitrogen 30 mg/dL (9-20); Calcium 8.8 mg/dL (8.4-10.2); Carbon Dioxide 19 mmol/L (22-30); Chloride 111 mmol/L (98-107); Glucose 108 mg/dL (65-110); Potassium 3.9 mmol/L (3.4-5.0); Sodium 138 mmol/L (137-145); Total Protein 5.9 g/dL (6.3-8.2)
[2024-11-29 07:57] LABS: Anisocytosis 1+
[2024-11-29 07:58] LABS: Schistocytes None Seen
[2024-11-29 07:59] LABS: Burr Cells Occasional; Hypochromasia 1+
[2024-11-29] MEDS: SENNA/DOCUSATE SODIUM TABLET 1 TAB PO ×2 (08:51→17:02)
[2024-11-29] MEDS: MEROPENEM 1 GM in SODIUM CHLORIDE 0.9% IV 100 ML 200 ML IVPB (08:51)
[2024-11-29] MEDS: ATORVASTATIN 40 MG TABLET BY MOUTH (08:51)
[2024-11-29] MEDS: FINASTERIDE 5 MG TABLET PO (08:51)
[2024-11-29] MEDS: CYANOCOBALAMIN 1,000 MCG TABLET 1000 MCG PO (08:51)
[2024-11-29] MEDS: GABAPENTIN 100 MG CAPSULE PO ×3 (08:51→17:02)
[2024-11-29] MEDS: TAMSULOSIN HCL 0.4 MG CAPSULE PO (08:51)
--- NOTE | 2024-11-29 13:20 | P.PNNP_ITS ---
Progress Note: A&P Assessment and Plan (1) Acute kidney injury: Code(s): N17.9 - Acute kidney failure, unspecified Status: Acute Assessment and Plan: * slow improvement noted * normal creatinine ~ 2 months ago (September 2024) * admission creatinine 1.26mg/dl * worsening creatinine noted on 11/26 * suspect multifactorial etiology: * contrast exposure (CT on 11/25) * prerenal factors (poor oral intake) * diuretics prior to admission * relative hypotension (noted 80 - 90s systolic BP * infection/early sepsis (UTI/cystitis) * other(?) * evaluation to date noted: * CT and renal U/S without obstruction * UA suggestive of infection * urine electrolytes prerenal * rare urine eosinophils (finding could be secondary to UTI) * CPK pending * continue IVFs for now * optimize hemodynamics * follow trend of repeat labs ad UOP (2) Sepsis: Code(s): A41.9 - Sepsis, unspecified organism Status: Acute Assessment and Plan: * possibly due to #2 * follow culture data * continue antibiotics * follow trend of hemodynamics (3) Urinary tract infection: Qualifiers: Hematuria presence: with hematuria Urinary tract infection type: site unspecified Qualified Code(s): N39.0 - Urinary tract infection, site not specified; R31.9 - Hematuria, unspecified Code(s): N39.0 - Urinary tract infection, site not specified Status: Acute Assessment and Plan: * admission UA highly suggestive * follow culture data - E.coli noted * on antibiotics (4) Anemia: Code(s): D64.9 - Anemia, unspecified Status: Acute Assessment and Plan: * due to acute illness and J CARLOS * no need for MANDA * follow trend of H/H (5) BPH (benign prostatic hyperplasia): Code(s): N40.0 - Benign prostatic hyperplasia without lower urinary tract symptoms Status: Chronic Assessment and Plan: * on finasteride and tamulosin * walton catheter inplace at this time * voiding trial in the next day or to (depending on trend of creatinine) (6) Type 2 diabetes mellitus with hyperglycemia: Qualifiers: Diabetes mellitus terminal manager insulin use: without terminal manager use Q ualified Code(s): E11.65 - Type 2 diabetes mellitus with hyperglycemia Code(s): E11.65 - Type 2 diabetes mellitus with hyperglycemia Status: Chronic Assessment and Plan: * follow accu-cheks * glycemic control per hospitalist Will continue to follow. L Subjective Date/time seen: 11/29/24 13:20 Interval history: Follow-up for acute kidney injury/acute renal failure. Overall, he states he is feeling significantly better; renal function/creatinine continues to improve with good urine output noted with IVFs; no apparent distress voiced at the time of my visit; no other acute complaints to report. Exam 2 Narrative: General: elderly but WD/WN male in NAD Heart: normal S1 and S2; no rub Lungs: clear anteriorly Abdomen: obese but soft, nontender, nondistended, positive bowel sounds Extremities: no cyanosis or clubbing; no edema Skin: warm and intact Objective Data Vital Signs Vital Signs: Vital Signs Temp Pulse Resp BP Pulse Ox O2 Del Method 11/29/24 12:00 97.2 F L 74 16 105/53 L 100 11/29/24 08:00 79 11/29/24 08:00 Room Air 11/29/24 06:54 97.8 F 74 16 110/55 L 99 11/29/24 04:00 87 11/29/24 00:00 90 11/28/24 22:00 97.5 F L 87 16 116/58 L 99 Intake/Output Intake/Output: Intake & Output 11/26/24 11/27/24 11/28/24 11/29/24 23:59 23:59 23:59 23:59 Intake Total 5550 4320 5322 2655 Output Total 856 923 0393 2950 Balance 5400 3920 1522 -295 Meds/Results Medications: Active Medications Generic Name Dose Route Start Last Admin Trade Name Shreyas PRN Reason Stop Dose Admin Acetaminophen 650 mg 11/26/24 01:54 11/26/24 03:57 Acetaminophen 325 Mg Tablet PO 650 mg Q4H PRN Administration Mild Pain (1-3) or Fever Amoxicillin/Clavulanate Potassium 1 tablet 11/29/24 18:00 11/29/24 17:02 Amoxicillin/Clavulanate K 875-125 Mg Tab PO 12/02/24 21:01 1 tablet Q12HR DANIELA Administration Atorvastatin Calcium 40 mg 11/26/24 13:55 11/29/24 08:51 Atorvastatin 40 Mg Tablet BY MOUTH 40 mg DAILY DANIELA Administration Cyanocobalamin 1,000 mcg 11/26/24 13:55 11/29/24 08:51 Cyanocobalamin 1,000 Mcg Tablet PO 1,000 mcg DAILY DANIELA Administration Dextrose 12.5 gm 11/26/24 01:54 Dextrose 50% 25 Gm/50 Ml Syringe IV PUSH PRN PRN Hypoglycemia Protocol Finasteride 5 mg 11/26/24 13:55 11/29/24 08:51 Finasteride 5 Mg Tablet PO 5 mg DAILY DANIELA Administration Gabapentin 100 mg 11/26/24 17:00 11/29/24 17:02 Gabapentin 100 Mg Capsule PO 100 mg TID DANIELA Administration Glucose 15 gm 11/26/24 01:54 Glucose Oral Gel 15 Gm Of Glucse In 37.5 Gm Tube PO PRN PRN Hypoglycemia Protocol Dextrose 1,000 mls @ 100 mls/hr 11/26/24 01:54 Dextrose 5% 1,000 Ml IVPB PRN PRN Hypoglycemia Protocol Insulin Aspart 2 - 5 units 11/26/24 17:00 11/29/24 17:01 Insulin Aspart (*Bkc) 100 Units/Ml SUB-Q Not Given TIDWM [facility] Protocol Insulin Aspart 1 - 2 units 11/26/24 21:00 11/28/24 22:08 Insulin Aspart (*Bkc) 100 Units/Ml SUB-Q Not Given HS [facility] Protocol Morphine Sulfate 2 mg 11/26/24 01:54 Morphine Sulfate (*Crx) 2 Mg/Ml Inj IV PUSH Q2H PRN Pain Rated 4-6 Ondansetron HCl 4 mg 11/26/24 01:54 Ondansetron Inj 4 Mg/2 Ml Vial IV PUSH Q4H PRN Nausea Senna/Docusate Sodium 1 tab 11/27/24 17:00 11/29/24 17:02 Senna/Docusate Sodium Tablet PO 1 tab BID DANIELA Administration Tamsulosin HCl 0.4 mg 11/26/24 13:55 11/29/24 08:51 Tamsulosin Hcl 0.4 Mg Capsule PO 0.4 mg DAILY DANIELA Administration Radiology Results: ITS Impressions Abdomen/Pelvis CT 11/26/24 14:38 IMPRESSION: 1. Probable cystitis. Renal Ultrasound 11/26/24 18:00 Impression: 1. Left renal calculus. No hydronephrosis Chest X-Ray 11/26/24 18:59 Impression: Mild CHF Labs Labs: Laboratory Tests 11/29/24 05:27 11/29/24 05:27 Calcium 8.8 Total Bilirubin 0.4 AST 55 ALT 29 Alkaline Phosphatase 95 Total Protein 5.9 L Albumin 3.2 L Microbiology 11/26/24 06:15 Blood Blood Culture - Preliminary 11/26/24 06:15 Blood Blood Culture - Preliminary 11/25/24 20:47 Urine Clean Catch - Final Escherichia Coli
--- NOTE | 2024-11-29 15:13 | P.PNIM_ITS ---
Progress Note: A&P Assessment and Plan (1) Morbid obesity: Code(s): E66.01 - Morbid (severe) obesity due to excess calories Status: Acute (2) Hypomagnesemia: Code(s): E83.42 - Hypomagnesemia Status: Acute (3) Acute kidney injury: Code(s): N17.9 - Acute kidney failure, unspecified Status: Acute (4) Sepsis: Code(s): A41.9 - Sepsis, unspecified organism Status: Acute Plan 74-year-old male with history of morbid obesity with BMI 40, diabetes without insulin dependence, CHARLIE noncompliant with CPAP, arthritis, anemia, hyperlipidemia, peripheral neuropathy, BPH, presents to [facility] on 11/26/24 complaining of left lower abdominal pain radiating to his flank. It started in the past 24 hours. He had some burning upon urination but that has resolved. No fevers, shortness of breath, chills. Of note, he reports he is full after 2-3 bites. He had an EGD on 11/21/2024 to investigate further which demonstrated gastritis only.. Was advised to obtain a CT of abdomen pelvis for further evaluation. He is unable to eat adequately which is causing weight loss, this is been going on for many months. Past day he has not eaten or drinking anything. ----- In the ER found had elevated white count mild at 10.[address] abdomen pelvis demonstrating bilateral increase in retroperitoneal fat, consistent with bilateral retroperitoneal lipomatosis. No obstructive process. He was given ceftriaxone 1 g, Dilaudid, 2 L normal saline bolus, Toradol, Zofran, morphine. ----- Although the patient had only 1 dose of ceftriaxone 1 g, white count elevating at 14.1 on 11/26/2024. Increase ceftriaxone to 2 g daily. 11/25/2024 urine culture pending, 11/26/2024 blood culture x2, pending. Final radiology interpretation of CT abdomen pelvis pending. 11/27/2024: White count again increasing, afebrile. Procalcitonin very high. Will expand antibiotics from ceftriaxone 2 g IV daily to meropenem and vancomycin, renal dosing. Continue to monitor urine and blood cultures. 11/28/2024: WBC improved, afebrile. Blood culture and urine culture pending still. 11/29/2024: Wbc's improved. Still afebrile. Blood pressure improved. Discontinue fluids. Discontinue vancomycin. Urine culture growing Gram-negative, deescalate based on sensitivity. Follow blood culture, no growth to date. Anemia: Baseline on admission 11.3. Hemoglobin 9.6 on 11/27/2024: Likely dilutional. Continue to trend. Denies dark stool. Stool occult negative. Patient reports he is urinating multiple times but very small amounts. After this he did urinate and a bladder scan showed 34 cc postvoid. Check renal ultrasound. On 2nd day of admission he has developed an J CARLOS. He is dehydrated based on dry mucous membranes and his own report. Increase normal saline to 150 cc/hour. Check additional urine studies. 11/27/2024: Patient reports very low urine output, will place urinary catheter to have strict monitoring of output. He has increasing serum creatinine, J CARLOS. Consult Nephrology. Currently on 150 cc/hour of normal saline, continue. Serum creatinine improved on 11/28/2024, continue to monitor, fluids per Nephrology. 11/29/2024 serum creatinine improved to 1.24. Discontinue fluids, has mild bibasilar crackles. Discontinue Quintanilla catheter, voiding trial. 11/27/2024: Magnesium level acceptable status post replacement Restart FULLING MILL OPERATOR finasteride, tamsulosin. Hold FULLING MILL OPERATOR VESIcare. Hold FULLING MILL OPERATOR furosemide. Of note, patient has complained of early satiety. EGD which demonstrated gastritis. Patient does not complain of symptoms of acid reflux. Considering his diabetes, will recommend gastric emptying study with his aircraft seat upholsterer in the outpatient setting. 11/27/2024: Multiple days without bowel movement. Slight distention of the abdomen, no pain. Patient reports bloating as well. Give MiraLax x1, start Senokot S1 tab p.o. b.i.d.. 11/28/2024: Still no bowel movement. Continue MiraLax 17 g p.o. q.a.m., continue Senokot S1 tab p.o. b.i.d.. Give 1 time bisacodyl suppository. 11/29/2024: Had a bowel movement, discontinue MiraLax. Continue Senokot. Hold FULLING MILL OPERATOR gemfibrozil, metformin, pioglitazone. Accu-Cheks a.c. HS with low-dose insulin sliding scale. ----- Patient wishes to be full code. Lives at home with multiple family members. Diabetic diet. Saline lock IV SCDs only, hemoglobin stable, start Lovenox 40 mg subQ q.day on 11/29/2024. Consult PT/OT for weakness, awaiting evaluation. Subjective Date/time seen: 11/29/24 15:13 Interval history: Patient reports feeling significantly better. 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 Breathing good. Has more energy. Review of Systems Review of Systems: All systems reviewed & are unremarkable except as noted in HPI and below (Subjective) Exam Const: General: comfortable and no acute distress Other: A&O x3 HENMT: Mouth: Yes moist mucous membranes Eyes: Pupils: Equal, round and reactive pupils present Neck: Neck: supple Resp: Effort & Inspection: normal respiratory effort Other: Mild bibasilar crackles Cardio: Rate: regular rate Rhythm: regular rhythm GI: Inspection: non-distended GI Palp: Yes Soft to palpation and No Guarding due to palpation present (GI) Auscultation: normal bowel sounds Neuro: Motor exam (neuro): 5/5 motor strength present throughout Extrem: General: no edema Objective Data Vital Signs Vital Signs: Vital Signs - 24 hr 11/28/24 16:00 11/28/24 20:00 11/28/24 20:00 Temperature Pulse Rate 80 87 75 Respiratory Rate 16 Blood Pressure Pulse Oximetry 99 Oxygen Delivery Room Air 11/28/24 22:00 11/29/24 00:00 11/29/24 04:00 Temperature 97.5 F L Pulse Rate 87 90 87 Respiratory Rate 16 Blood Pressure 116/58 L Pulse Oximetry 99 Oxygen Delivery 11/29/24 06:54 11/29/24 08:00 11/29/24 08:00 Temperature 97.8 F Pulse Rate 74 79 Respiratory Rate 16 Blood Pressure 110/55 L Pulse Oximetry 99 Oxygen Delivery Room Air 11/29/24 12:00 Temperature Pulse Rate 83 Respiratory Rate Blood Pressure Pulse Oximetry Oxygen Delivery Intake/Output Intake/Output: Intake & Output 11/26/24 11/27/24 11/28/24 11/29/24 23:59 23:59 23:59 23:59 Intake Total 5550 4320 5322 2175 Output Total 312 608 9061 2000 Balance 5400 3920 1522 175 Meds/Results Medications: Active Medications Generic Name Dose Route Start Last Admin Trade Name Freq PRN Reason Stop Dose Admin Acetaminophen 650 mg 11/26/24 01:54 11/26/24 03:57 Acetaminophen 325 Mg Tablet PO 650 mg Q4H PRN Administration Mild Pain (1-3) or Fever Atorvastatin Calcium 40 mg 11/26/24 13:55 11/29/24 08:51 Atorvastatin 40 Mg Tablet BY MOUTH 40 mg DAILY DANIELA Administration Cyanocobalamin 1,000 mcg 11/26/24 13:55 11/29/24 08:51 Cyanocobalamin 1,000 Mcg Tablet PO 1,000 mcg DAILY DANIELA Administration Dextrose 12.5 gm 11/26/24 01:54 Dextrose 50% 25 Gm/50 Ml Syringe IV PUSH PRN PRN Hypoglycemia Protocol Finasteride 5 mg 11/26/24 13:55 11/29/24 08:51 Finasteride 5 Mg Tablet PO 5 mg DAILY DANIELA Administration Gabapentin 100 mg 11/26/24 17:00 11/29/24 12:09 Gabapentin 100 Mg Capsule PO 100 mg TID DANIELA Administration Glucose 15 gm 11/26/24 01:54 Glucose Oral Gel 15 Gm Of Glucse In 37.5 Gm Tube PO PRN PRN Hypoglycemia Protocol Dextrose 1,000 mls @ 100 mls/hr 11/26/24 01:54 Dextrose 5% 1,000 Ml IVPB PRN PRN Hypoglycemia Protocol Meropenem 1 gm/ Sodium 100 mls @ 200 mls/hr 11/29/24 17:00 Chloride IVPB Q8H [facility] Insulin Aspart 2 - 5 units 11/26/24 17:00 11/29/24 12:09 Insulin Aspart (*Bkc) 100 Units/Ml SUB-Q Not Given TIDWM [facility] Protocol Insulin Aspart 1 - 2 units 11/26/24 21:00 11/28/24 22:08 Insulin Aspart (*Bkc) 100 Units/Ml SUB-Q Not Given HS [facility] Protocol Morphine Sulfate 2 mg 11/26/24 01:54 Morphine Sulfate (*Crx) 2 Mg/Ml Inj IV PUSH Q2H PRN Pain Rated 4-6 Ondansetron HCl 4 mg 11/26/24 01:54 Ondansetron Inj 4 Mg/2 Ml Vial IV PUSH Q4H PRN Nausea Senna/Docusate Sodium 1 tab 11/27/24 17:00 11/29/24 08:51 Senna/Docusate Sodium Tablet PO 1 tab BID DANIELA Administration Tamsulosin HCl 0.4 mg 11/26/24 13:55 11/29/24 08:51 Tamsulosin Hcl 0.4 Mg Capsule PO 0.4 mg DAILY DANIELA Administration Radiology Results: ITS Impressions Abdomen/Pelvis CT 11/26/24 14:38 IMPRESSION: 1. Probable cystitis. Renal Ultrasound 11/26/24 18:00 Impression: 1. Left renal calculus. No hydronephrosis Chest X-Ray 11/26/24 18:59 Impression: Mild CHF Labs Labs: Laboratory Results - last 24 hr 11/28/24 11/28/24 11/29/24 16:11 22:07 05:27 WBC 12.5 H RBC 3.17 L Hgb 9.7 L Hct 30.2 L MCV 95.3 MCH 30.6 MCHC 32.1 RDW 14.7 H Plt Count 170 MPV 11.2 H Immature Gran % (Auto) 3.1 H Neut % (Auto) 80.5 H Lymph % (Auto) 7.0 L [place] % (Auto) 6.0 Eos % (Auto) 2.8 Baso % (Auto) 0.6 Lymph # (Auto) 0.88 L [place] # (Auto) 0.8 H Eos # (Auto) 0.4 H Baso # (Auto) 0.1 Abs Immat Gran (auto) 0.39 H Absolute Neuts (auto) 10.1 H Absolute Nucleated RBC 0.000 Band Neutrophils % Not Reportable Nucleated RBC % 0.0 Platelet Estimate Slightly decreased Hypochromasia 1+ Anisocytosis 1+ [place] Cells Occasional Schistocytes None seen Sodium 138 Potassium 3.9 Chloride 111 H Carbon Dioxide 19 L Anion Gap 8 BUN 30 H D Creatinine 1.24 Estim Creat Clear Calc 64 Estimated GFR 57 L Glucose 108 POC Capillary Glucose 119 H 116 H Calcium 8.8 Total Bilirubin 0.4 AST 55 ALT 29 Alkaline Phosphatase 95 Total Protein 5.9 L Albumin 3.2 L Stl Occult Blood (IFOB) Random Vancomycin 11/29/24 11/29/24 11/29/24 06:21 07:49 11:30 WBC RBC Hgb Hct MCV MCH MCHC RDW Plt Count MPV Immature Gran % (Auto) Neut % (Auto) Lymph % (Auto) [place] % (Auto) Eos % (Auto) Baso % (Auto) Lymph # (Auto) [place] # (Auto) Eos # (Auto) Baso # (Auto) Abs Immat Gran (auto) Absolute Neuts (auto) Absolute Nucleated RBC Band Neutrophils % Nucleated RBC % Platelet Estimate Hypochromasia Anisocytosis [place] Cells Schistocytes Sodium Potassium Chloride Carbon Dioxide Anion Gap BUN Creatinine Estim Creat Clear Calc Estimated GFR Glucose POC Capillary Glucose 112 H 154 H Calcium Total Bilirubin AST ALT Alkaline Phosphatase Total Protein Albumin Stl Occult Blood (IFOB) Negative Random Vancomycin 11/29/24 12:01 WBC RBC Hgb Hct MCV MCH MCHC RDW Plt Count MPV Immature Gran % (Auto) Neut % (Auto) Lymph % (Auto) [place] % (Auto) Eos % (Auto) Baso % (Auto) Lymph # (Auto) [place] # (Auto) Eos # (Auto) Baso # (Auto) Abs Immat Gran (auto) Absolute Neuts (auto) Absolute Nucleated RBC Band Neutrophils % Nucleated RBC % Platelet Estimate Hypochromasia Anisocytosis [place] Cells Schistocytes Sodium Potassium Chloride Carbon Dioxide Anion Gap BUN Creatinine Estim Creat Clear Calc Estimated GFR Glucose POC Capillary Glucose Calcium Total Bilirubin AST ALT Alkaline Phosphatase Total Protein Albumin Stl Occult Blood (IFOB) Random Vancomycin 12.5
[2024-11-30] VITALS: PULSE 77
[2024-11-30] MEDS: ACETAMINOPHEN 325 MG TABLET 650 MG PO (02:51)
[2024-11-30 04:00] VITALS: PULSE 73
[2024-11-30 04:20] VITALS: BP 116/50; PULSE 74; RESP 18; TEMP 36.3; O2SAT 97
[2024-11-30 07:03] LABS: Hematocrit 32.2 % (42.0-52.0); Hemoglobin 10.4 g/dL (14.0-18.0); Immature Granulocyte Percent A 10.8 % (0-0.5); Lymphocytes Absolute Auto 0.95 K/mm3 (0.9-3.2); Mean Corpuscular HGB Conc 32.3 g/dl (32-36); Mean Corpuscular Hemoglobin 30.5 pg (26-34); Mean Corpuscular Volume 94.4 fl (80-100); Nucleated Red Blood Cells Absolute Auto 0.000 K/mm3 (0.0-0.012); Nucleated Red Blood Cells Perc 0.0 % (0.0-0.2); Platelet Count Result 166 k/mm3 (150-375); Red Blood Count 3.41 M/mm3 (4.6-6.20); White Blood Count 8.5 K/mm3 (4.5-10.0)
[2024-11-30 07:29] LABS: Anion Gap 5 mmol/L (4-12); Blood Urea Nitrogen 20 mg/dL (9-20); Calcium 8.9 mg/dL (8.4-10.2); Carbon Dioxide 21 mmol/L (22-30); Chloride 111 mmol/L (98-107); Estimated CRCL calculation 89 ml/min; Estimated Glomerular Filt Rate > 60; Glucose 125 mg/dL (65-110); Magnesium 1.8 mg/dL (1.6-2.3); Potassium 3.7 mmol/L (3.4-5.0); Sodium 137 mmol/L (137-145)
[2024-11-30 07:37] LABS: Anisocytosis 1+; Ovalocytes 1+
[2024-11-30 07:38] LABS: Burr Cells 1+; Schistocytes None Seen
[2024-11-30 08:00] VITALS: PULSE 77
[2024-11-30] MEDS: CYANOCOBALAMIN 1,000 MCG TABLET 1000 MCG PO (09:02)
[2024-11-30] MEDS: ATORVASTATIN 40 MG TABLET BY MOUTH (09:02)
[2024-11-30] MEDS: FINASTERIDE 5 MG TABLET PO (09:02)
[2024-11-30] MEDS: TAMSULOSIN HCL 0.4 MG CAPSULE PO (09:02)
[2024-11-30] MEDS: SENNA/DOCUSATE SODIUM TABLET 1 TAB PO (09:02)
[2024-11-30] MEDS: GABAPENTIN 100 MG CAPSULE PO ×2 (09:02→12:28)
[2024-11-30 12:00] VITALS: PULSE 73
--- NOTE | 2024-11-30 12:45 | P.PNNP_ITS ---
Progress Note: A&P Assessment and Plan (1) Acute kidney injury: Code(s): N17.9 - Acute kidney failure, unspecified Status: Acute Assessment and Plan: * slow improvement noted * normal creatinine ~ 2 months ago (September 2024) * admission creatinine 1.26mg/dl * worsening creatinine noted on 11/26 * suspect multifactorial etiology: * contrast exposure (CT on 11/25) * prerenal factors (poor oral intake) * diuretics prior to admission * relative hypotension (noted 80 - 90s systolic BP * infection/early sepsis (UTI/cystitis) * other(?) * evaluation to date noted: * CT and renal U/S without obstruction * UA suggestive of infection * urine electrolytes prerenal * rare urine eosinophils (finding could be secondary to UTI) * CPK pending * continue IVFs for now * optimize hemodynamics * follow trend of repeat labs ad UOP (2) Sepsis: Code(s): A41.9 - Sepsis, unspecified organism Status: Acute Assessment and Plan: * possibly due to #2 * follow culture data - results noted * continue antibiotics * follow trend of hemodynamics (3) Urinary tract infection: Qualifiers: Hematuria presence: with hematuria Urinary tract infection type: site unspecified Qualified Code(s): N39.0 - Urinary tract infection, site not specified; R31.9 - Hematuria, unspecified Code(s): N39.0 - Urinary tract infection, site not specified Status: Acute Assessment and Plan: * admission UA highly suggestive * follow culture data - E.coli noted * on antibiotics (4) Anemia: Code(s): D64.9 - Anemia, unspecified Status: Acute Assessment and Plan: * due to acute illness and J CARLOS * no need for MANDA * follow trend of H/H (5) BPH (benign prostatic hyperplasia): Code(s): N40.0 - Benign prostatic hyperplasia without lower urinary tract symptoms Status: Chronic Assessment and Plan: * on finasteride and tamulosin * walton catheter inplace at this time * voiding trial in the next day or to (depending on trend of creatinine) (6) Type 2 diabetes mellitus with hyperglycemia: Qualifiers: Diabetes mellitus tank terminal gauger insulin use: without tank terminal gauger use Q ualified Code(s): E11.65 - Type 2 diabetes mellitus with hyperglycemia Code(s): E11.65 - Type 2 diabetes mellitus with hyperglycemia Status: Chronic Assessment and Plan: * follow accu-cheks * glycemic control per hospitalist Not opposed to discharge from renal perspective if otherwise medically stable. Will continue to follow. L Subjective Date/time seen: 11/30/24 12:45 Interval history: Follow-up for acute kidney injury/acute renal failure. No apparent distress noted at the time of my visit; feels reasonably well in general; renal function/creatinine has normalized with supportive therapy/interventions; no other issues/events overnight or earlier this morning. Exam 2 Narrative: General: elderly but WD/WN male in NAD Heart: normal S1 and S2; no rub Lungs: clear anteriorly Abdomen: obese but soft, nontender, nondistended, positive bowel sounds Extremities: no cyanosis or clubbing; no edema Skin: no rash or nodules Objective Data Vital Signs Vital Signs: Vital Signs Temp Pulse Resp BP Pulse Ox O2 Del Method 11/30/24 10:03 Room Air 11/30/24 08:00 Room Air 11/30/24 04:20 97.3 F L 74 18 116/50 L 97 11/30/24 04:00 73 11/30/24 00:00 77 11/29/24 21:15 97.1 F L 77 20 121/59 L 98 11/29/24 20:00 85 11/29/24 20:00 77 20 98 Room Air Intake/Output Intake/Output: Intake & Output 11/27/24 11/28/24 11/29/24 11/30/24 23:59 23:59 23:59 23:59 Intake Total 4320 5322 2955 590 Output Total 400 3800 2950 Balance 3920 1522 5 590 Meds/Results Medications: Active Medications Generic Name Dose Route Start Last Admin Trade Name Freq PRN Reason Stop Dose Admin Acetaminophen 650 mg 11/26/24 01:54 11/30/24 02:51 Acetaminophen 325 Mg Tablet PO 650 mg Q4H PRN Administration Mild Pain (1-3) or Fever Amoxicillin/Clavulanate Potassium 1 tablet 11/29/24 18:00 11/30/24 09:02 Amoxicillin/Clavulanate K 875-125 Mg Tab PO 12/02/24 21:01 1 tablet Q12HR DANIELA Administration Atorvastatin Calcium 40 mg 11/26/24 13:55 11/30/24 09:02 Atorvastatin 40 Mg Tablet BY MOUTH 40 mg DAILY DANIELA Administration Cyanocobalamin 1,000 mcg 11/26/24 13:55 11/30/24 09:02 Cyanocobalamin 1,000 Mcg Tablet PO 1,000 mcg DAILY DANIELA Administration Dextrose 12.5 gm 11/26/24 01:54 Dextrose 50% 25 Gm/50 Ml Syringe IV PUSH PRN PRN Hypoglycemia Protocol Finasteride 5 mg 11/26/24 13:55 11/30/24 09:02 Finasteride 5 Mg Tablet PO 5 mg DAILY DANIELA Administration Gabapentin 100 mg 11/26/24 17:00 11/30/24 12:28 Gabapentin 100 Mg Capsule PO 100 mg TID DANIELA Administration Glucose 15 gm 11/26/24 01:54 Glucose Oral Gel 15 Gm Of Glucse In 37.5 Gm Tube PO PRN PRN Hypoglycemia Protocol Dextrose 1,000 mls @ 100 mls/hr 11/26/24 01:54 Dextrose 5% 1,000 Ml IVPB PRN PRN Hypoglycemia Protocol Insulin Aspart 2 - 5 units 11/26/24 17:00 11/30/24 12:17 Insulin Aspart (*Bkc) 100 Units/Ml SUB-Q Not Given TIDWM [facility] Protocol Insulin Aspart 1 - 2 units 11/26/24 21:00 11/29/24 21:30 Insulin Aspart (*Bkc) 100 Units/Ml SUB-Q Not Given HS [facility] Protocol Morphine Sulfate 2 mg 11/26/24 01:54 Morphine Sulfate (*Crx) 2 Mg/Ml Inj IV PUSH Q2H PRN Pain Rated 4-6 Ondansetron HCl 4 mg 11/26/24 01:54 Ondansetron Inj 4 Mg/2 Ml Vial IV PUSH Q4H PRN Nausea Senna/Docusate Sodium 1 tab 11/27/24 17:00 11/30/24 09:02 Senna/Docusate Sodium Tablet PO 1 tab BID DANIELA Administration Tamsulosin HCl 0.4 mg 11/26/24 13:55 11/30/24 09:02 Tamsulosin Hcl 0.4 Mg Capsule PO 0.4 mg DAILY DANIELA Administration Radiology Results: ITS Impressions Abdomen/Pelvis CT 11/26/24 14:38 IMPRESSION: 1. Probable cystitis. Renal Ultrasound 11/26/24 18:00 Impression: 1. Left renal calculus. No hydronephrosis Chest X-Ray 11/26/24 18:59 Impression: Mild CHF Labs Labs: Laboratory Tests 11/30/24 06:54 11/30/24 06:54 Calcium 8.9 Magnesium 1.8 Microbiology 11/26/24 06:15 Blood Blood Culture - Preliminary 11/26/24 06:15 Blood Blood Culture - Preliminary 11/25/24 20:47 Urine Clean Catch - Final Escherichia Coli
[2024-11-30 14:00] VITALS: BP 133/60; PULSE 78; RESP 18; TEMP 36.4; O2SAT 100
--- NOTE | 2024-11-30 15:40 | PM.DS ---
DS: Admitting Diagnosis Discharge Date 11/30/2024 Admitting Diagnosis Abdominal pain DS: Discharge Diagnosis Discharge Diagnosis (1) Urinary tract infection: Qualifiers: Hematuria presence: with hematuria Urinary tract infection type: site unspecified Qualified Code(s): N39.0 - Urinary tract infection, site not specified; R31.9 - Hematuria, unspecified Code(s): N39.0 - Urinary tract infection, site not specified Status: Acute (2) Acute kidney injury: Code(s): N17.9 - Acute kidney failure, unspecified Status: Acute DS: Summary Hospital Course Hospital Course: 74-year-old male with history of morbid obesity with BMI 40, diabetes without insulin dependence, CHARLIE noncompliant with CPAP, arthritis, anemia, hyperlipidemia, peripheral neuropathy, BPH, presents to [facility] on 11/26/24 complaining of left lower abdominal pain radiating to his flank. It started in the past 24 hours. He had some burning upon urination but that has resolved. No fevers, shortness of breath, chills. Of note, he reports he is full after 2-3 bites. He had an EGD on 11/21/2024 to investigate further which demonstrated gastritis only.. Was advised to obtain a CT of abdomen pelvis for further evaluation. He is unable to eat adequately which is causing weight loss, this is been going on for many months. Past day he has not eaten or drinking anything. ----- In the ER found had elevated white count mild at 10.[address] abdomen pelvis demonstrating bilateral increase in retroperitoneal fat, consistent with bilateral retroperitoneal lipomatosis. No obstructive process. He was given ceftriaxone 1 g, Dilaudid, 2 L normal saline bolus, Toradol, Zofran, morphine. ----- The patient's sepsis and complicated UTI successfully treated with ceftriaxone, elevated to meropenem and vancomycin, then deescalated to Augmentin. He will take a total 7 day course. Urine culture resulting E coli resistant to ampicillin. He had constipation which was treated with laxative. An J CARLOS which was due to sepsis versus hypovolemia. He is discharged in stable condition on 11/30/2024 to home with his family. All of his questions and concerns were answered to satisfaction. Blood cultures x2 bottles from 11/26/2024 no growth to date. Adverse effects, risk and benefits of medications including antibiotics were discussed. He is advised to follow-up with his PCP within 7 days. He had hypo magnesemia resolved status post replacement. He was full code during the admission. Status at Discharge Functional status at discharge: independent ambulation Overall status at discharge: patient is back to baseline Time Spent with Patient Time attestation: Total time spent providing and/or coordinating discharge services: Time spent: Greater than 30 minutes Exam Const: General: comfortable and no acute distress Other: A&O x3 HENMT: Mouth: Yes moist mucous membranes Eyes: Pupils: Equal, round and reactive pupils present Neck: Neck: supple Resp: Effort & Inspection: normal respiratory effort Auscultation: clear to auscultation bilaterally Cardio: Rate: regular rate Rhythm: regular rhythm GI: Inspection: non-distended GI Palp: Yes Soft to palpation and No Guarding due to palpation present (GI) Auscultation: normal bowel sounds Neuro: Motor exam (neuro): 5/5 motor strength present throughout Extrem: General: no edema DS: Data Data Completed and Pending Labs on day of discharge: Labs from last 24 hours 11/30/24 11/30/24 11/30/24 11:38 08:01 06:54 WBC 8.5 RBC 3.41 L Hgb 10.4 L Hct 32.2 L MCV 94.4 MCH 30.5 MCHC 32.3 RDW 14.9 H Plt Count 166 MPV 10.4 Immature Gran % (Auto) 10.8 H Neut % (Auto) 64.3 Lymph % (Auto) 11.2 L [place] % (Auto) 8.5 Eos % (Auto) 4.1 Baso % (Auto) 1.1 Lymph # (Auto) 0.95 [place] # (Auto) 0.7 H Eos # (Auto) 0.4 H Baso # (Auto) 0.1 Abs Immat Gran (auto) 0.92 H Absolute Neuts (auto) 5.5 Absolute Nucleated RBC 0.000 Band Neutrophils % Not Reportable Nucleated RBC % 0.0 Platelet Estimate Adequate Anisocytosis 1+ Ovalocytes 1+ [place] Cells 1+ Schistocytes None seen Sodium 137 Potassium 3.7 Chloride 111 H Carbon Dioxide 21 L Anion Gap 5 BUN 20 D Creatinine 0.90 Estim Creat Clear Calc 89 Estimated GFR > 60 Glucose 125 H POC Capillary Glucose 139 H 115 H Calcium 8.9 Magnesium 1.8 11/29/24 11/29/24 21:19 16:27 WBC RBC Hgb Hct MCV MCH MCHC RDW Plt Count MPV Immature Gran % (Auto) Neut % (Auto) Lymph % (Auto) [place] % (Auto) Eos % (Auto) Baso % (Auto) Lymph # (Auto) [place] # (Auto) Eos # (Auto) Baso # (Auto) Abs Immat Gran (auto) Absolute Neuts (auto) Absolute Nucleated RBC Band Neutrophils % Nucleated RBC % Platelet Estimate Anisocytosis Ovalocytes [place] Cells Schistocytes Sodium Potassium Chloride Carbon Dioxide Anion Gap BUN Creatinine Estim Creat Clear Calc Estimated GFR Glucose POC Capillary Glucose 119 H 109 H Calcium Magnesium Preliminary micro results at discharge 11/26/24 06:15 Blood Culture - Preliminary Blood 11/26/24 06:15 Blood Culture - Preliminary Blood Discharge Plan Discharge Attending physician on discharge: Yue Terrell Consulting providers: Lucien Tavarez Discharging Clinician: Yue Terrell Patient Disposition: Home Activity: july shower Diet: diabetic Patient Instructions: Antibiotic Form Patient Language: Chinese Stand Alone Forms: General Discharge Information Follow-up/Referrals: Felicitas Young MD [Primary Care Provider, [facility]] - 12/06/24 Referral Note: Follow-up on hospitalization for sepsis, complicated acute cystitis with J CARLOS Discharge Medications: New amoxicillin-pot clavulanate 875-125 mg tablet 1 tablet PO Q12H Qty: 5 0RF Continued gemfibrozil 600 mg tablet 600 mg PO BID Qty: 180 3RF atorvastatin 40 mg tablet See Rx Instructions .ROUTE .COMPLEX Qty: 90 2RF Dose Instruction: TAKE 1 TABLET EVERY DAY Rx Instructions: TAKE 1 TABLET EVERY DAY furosemide 20 mg tablet 20 mg PO QAM Qty: 180 1RF solifenacin [Vesicare] 10 mg tablet 10 mg PO DAILY Qty: 30 6RF pioglitazone 45 mg tablet 45 mg PO DAILY Qty: 90 3RF tamsulosin 0.4 mg capsule 0.4 mg PO DAILY Qty: 90 2RF metformin 500 mg tablet extended release 24 hr 1,000 mg PO BID Qty: 120 3RF cyanocobalamin (vitamin B-12) 1,000 mcg capsule 1,000 mcg PO DAILY Qty: 30 0RF finasteride 5 mg tablet 5 mg PO DAILY Qty: 90 1RF gabapentin 100 mg capsule 100 mg PO TID Qty: 90 3RF Discontinued lorazepam 1 mg tablet 1 mg PO DAILY PRN (Reason: anxiety) Qty: 5 0RF Rx Instructions: Take 30 minutes before testing Date of admission: 11/27/24 16:16 Primary Care Provider: Felicitas Young Admitting Provider: Debbie Plascencia Attending physician on admission: Debbie Plascencia Condition: Stable Hospitalist MIPS Heart Failure (Exclusion) Patient has history of Heart Transplant or Left Ventricular Assistive Device?: No IF YES, STOP HERE Heart Failure (Qualifier) Patient has current or prior documentation of LVEF less than or equal to 40%, or mod/servere depressed LVSF?: No IF NO, STOP HERE
== END 2024-11-30 17:05 | disposition home or self-care (01) | DRG 872 ==
LOC: ANHED 11-26 01:49 → ANH3MEDSUR 11-26 02:42
PROVIDERS: Emergency Medicine; Internal Medicine Nephrology; Admitting Provider Internal Medicine; Emergency Provider Physician Assistant; PCP Family Medicine; Visit Provider General Practice
DX: A41.9 Sepsis, unspecified organism (principal); N39.0 Urinary tract infection, site not specified; N17.9 Acute kidney failure, unspecified; E44.0 Moderate protein-calorie malnutrition; Z68.41 Body mass index [BMI] 40.0-44.9, adult; E83.42 Hypomagnesemia; E11.42 Type 2 diabetes mellitus with diabetic polyneuropathy; E78.5 Hyperlipidemia, unspecified; E66.01 Morbid (severe) obesity due to excess calories; R13.10 Dysphagia, unspecified; R68.81 Early satiety; N40.0 Benign prostatic hyperplasia without lower urinary tract symptoms; G47.33 Obstructive sleep apnea (adult) (pediatric); Z96.653 Presence of artificial knee joint, bilateral; Z91.199 Patient's noncompliance with other medical treatment and regimen due to unspecified reason
CPT/HCPCS: 36415; 71045; 74177; 76770; 80048; 80053; 80202; 81001; 82274; 82436; 82550; 82565; 82570; 82948; 83605; 83690; 83735; 84145; 84300; 85025; 85610; 85999; 87040; 87086; 87186; 87641; 96361; 96365; 96375; 97161; 97165; 99285; A9270; G0378; J0696; J1171; J1885; J2185; J2270; J2405; J3373; J3475; J7030; J7040; Q9967

== ENCOUNTER 2024-12-04 16:45 | Outpatient (CLI) | payer MEDICARE, SELFPAY ==
--- OUTSIDE RECORDS SUMMARY | 2024-12-04 16:47 | XMS_ITS | Clinical Summary ---
Author Organization [facility] [id number] Address [address] [place] [address] Care Team Providers Care Law Reporter Name Role Phone Gianna Mann MD Primary Care Provider [phone] Allergies No known active allergies Social History Tobacco Use Types Packs/Day Years Used Date Smoking Tobacco: Never Assessed Personal Safety Answer Date Recorded Getting School Help Needed Not on file 05/28 Sex and Gender Information Value Date Recorded Sex Assigned at Not on file Legal Sex Male 6:26 AM [employer]IDENTIAL [employer] Gender Identity Not on file Sexual Orientation Not on file Plan of Treatment Not on file Insurance [employer] [place] [address] Care Teams Law Reporter Relationship Specialty Start Date End Date Gianna Mann MD PCP - General Family Practice 11/24/17
--- OUTSIDE RECORDS SUMMARY | 2024-12-04 16:47 | XMS_ITS | Clinical Summary ---
Author Organization [facility] Enriqueta murray Address [address] [place] [id number] Phone Care Team Providers Care Commercial Management Accountant Name Role Phone Unavailable Primary Care Provider [...] Comments Blood Pressure 118/60 04/22/2015 12:01 AM MERCHANDISE ASSOCIATE Pulse 72 04/22/2015 12:01 AM MERCHANDISE ASSOCIATE Temperature 36.9 C (98.5 F) 04/22/2015 12:01 AM MERCHANDISE ASSOCIATE Respiratory Rate - - Oxygen Saturation - - Inhaled Oxygen Concentration - - Weight 148 kg (326 lb) 04/22/2015 12:01 AM MERCHANDISE ASSOCIATE Height 177.8 cm (5' 10) 04/22/2015 12:01 AM MERCHANDISE ASSOCIATE Body Mass Index 46.78 04/22/2015 12:01 AM MERCHANDISE ASSOCIATE Plan of Treatment Not on file
[2024-12-04 17:24] LABS: Hematocrit 33.2 % (42.0-52.0); Hemoglobin 10.3 g/dL (14.0-18.0); Immature Granulocyte Percent A 12.1 % (0-0.5); Lymphocytes Absolute Auto 1.30 K/mm3 (0.9-3.2); Mean Corpuscular HGB Conc 31.0 g/dl (32-36); Mean Corpuscular Hemoglobin 29.9 pg (26-34); Mean Corpuscular Volume 96.2 fl (80-100); Nucleated Red Blood Cells Absolute Auto 0.000 K/mm3 (0.0-0.012); Nucleated Red Blood Cells Perc 0.0 % (0.0-0.2); Platelet Count Result 248 k/mm3 (150-375); Red Blood Count 3.45 M/mm3 (4.6-6.20); White Blood Count 9.7 K/mm3 (4.5-10.0)
[2024-12-04 17:39] LABS: Alanine Aminotransferase 41 U/L (6-50); Albumin Level 3.5 g/dL (3.5-5.1); Alkaline Phosphatase 102 U/L (38-126); Anion Gap 6 mmol/L (4-12); Aspartate Amino Transferase 49 U/L (17-59); Bilirubin,Total 0.6 mg/dL (0.2-1.3); Blood Urea Nitrogen 10 mg/dL (9-20); Calcium 8.7 mg/dL (8.4-10.2); Carbon Dioxide 28 mmol/L (22-30); Chloride 105 mmol/L (98-107); Estimated Glomerular Filt Rate > 60; Glucose 147 mg/dL (65-110); Magnesium 1.6 mg/dL (1.6-2.3); Potassium 4.1 mmol/L (3.4-5.0); Sodium 139 mmol/L (137-145); Total Protein 6.2 g/dL (6.3-8.2)
== END 2024-12-04 16:46 | disposition home or self-care (01) ==
PROVIDERS: PCP Family Medicine; Visit Provider Student in an Organized Health Care Education/Training Program
DX: E83.42 Hypomagnesemia (principal); N17.9 Acute kidney failure, unspecified; D64.9 Anemia, unspecified; E11.65 Type 2 diabetes mellitus with hyperglycemia
CPT/HCPCS: 36415; 80053; 83735; 85025